=== PATIENT | female | born 1925 | race African-American/Black ===

== ENCOUNTER 2016-09-25 21:49 | Emergency (ER) | payer MEDICARE, MEDICAID ==
[2016-09-25 22:31] LABS: ABSOLUTE EOSINOPHILS # (AUTO) 0.1 10^3/uL (0.0-0.6); ABSOLUTE LYMPHOCYTES (AUTO) 0.8 10^3/uL (0.5-4.7); ABSOLUTE MONOCYTES (AUTO) 0.6 10^3/uL (0.1-1.4); ABSOLUTE NEUT (AUTO) 4.5 10^3/uL (1.7-8.2); BASOPHILS % (AUTO) 0.3 % (0-2); EOSINOPHILS % (AUTO) 1.3 % (0-6); HEMATOCRIT 33.1 % (36.0-47.0); HEMOGLOBIN 10.6 g/dL (12.0-15.5); HGB HCT DIFFERENCE -1.3; LYMPHOCYTES % (AUTO) 12.8 % (13-45); MEAN CORPUSCULAR HEMOGLOBIN 23.6 pg (27.0-33.4); MEAN CORPUSCULAR HGB CONC 32.1 g/dL (32.0-36.0); MEAN CORPUSCULAR VOLUME 74 fl (80-97); MONOCYTES % (AUTO) 9.5 % (3-13); RED BLOOD COUNT 4.51 10^6/uL (3.72-5.28); RED CELL DISTRIBUTION WIDTH 16.8 % (11.5-14.0); SEGMENTED NEUTROPHILS % (AUTO) 76.1 % (42-78)
[2016-09-25 22:47] LABS: ALANINE AMINOTRANSFERASE 18 U/L (9-52); ALBUMIN 3.6 g/dL (3.5-5.0); ALKALINE PHOSPHATASE 103 U/L (38-126); ANION GAP 13 (5-19); ASPARTATE AMINO TRANSFERASE 25 U/L (14-36); BILIRUBIN,TOTAL 0.8 mg/dL (0.2-1.3); BLOOD UREA NITROGEN 15 mg/dL (7-20); CALCIUM 9.4 mg/dL (8.4-10.2); CARBON DIOXIDE 29 mmol/L (22-30); CHLORIDE 96 mmol/L (98-107); CREATININE RESULT 0.97 mg/dL (0.52-1.25); GLUCOSE 102 mg/dL (75-110); LIPASE 29.4 U/L (23-300); SODIUM 137.8 mmol/L (137-145); TOTAL PROTEIN 6.6 g/dL (6.3-8.2)
[2016-09-25] MEDS ORDERED: NORMAL SALINE 1000 ML 1,000 ML IV PRN ×2 (22:54→23:34)
--- NOTE | 2016-09-25 22:59 | ER Document Report ---
ED GI/ - General Chief Complaint: Abdominal Pain Stated Complaint: ABDOMINAL PAIN Time seen by provider: 22:55 Mode of Arrival: Stretcher Information source: Patient, Relative - [facility] TRAVEL OUTSIDE OF THE [place] IN LAST 30 DAYS: No - HPI Patient complains to provider of: Other - decreased PO intake, generalized weakness Onset: Yesterday Quality of pain: No pain Exacerbated by: Denies Relieved by: Denies Similar symptoms previously: No Recently seen / treated by doctor: No Notes: 09/25/16 22:56 Patient is an 89-year-old female brought to the emergency room by EMS and granddaughter for complaints of decreased by mouth intake with generalized weakness over the past few days, patient denies any abdominal pain, no chest pain, no nausea, vomiting or diarrhea, no urinary symptoms, last bowel movement was yesterday and normal, no sick contacts, no recent travel, patient does report that she feels too weak to walk, however states she just simply doesn't have an appetite and has never been one to be much - Related Data Allergies/Adverse Reactions: No Known Allergies Allergy (Verified 09/25/16 22:04) Past Medical History - General Information source: Patient, Relative - Social History Smoking Status: Never Smoker Family History: Reviewed & Not Pertinent - Past Medical History Cardiac Medical History: Reports: Hx Hypercholesterolemia, Hx Hypertension Denies: Hx Coronary Artery Disease, Hx Heart Attack Pulmonary Medical History: Denies: Hx Asthma, Hx Bronchitis, Hx COPD, Hx Pneumonia Neurological Medical History: Denies: Hx Cerebrovascular Accident, Hx Seizures GI Medical History: Reports: Hx Gastroesophageal Reflux Disease Musculoskeltal Medical History: Reports Hx Arthritis - OA Psychiatric Medical History: Reports: Hx Depression Past Surgical History: Reports: Hx Bowel Surgery - Colon resection for colon cancer, Hx Kidney (Renal Surgery) - Left nephrectomy for cancer - Immunizations Hx Diphtheria, Pertussis, Tetanus Vaccination: Yes Review of Systems - Review of Systems Constitutional: Weakness EENT: No symptoms reported Cardiovascular: No symptoms reported Respiratory: No symptoms reported Gastrointestinal: See HPI Genitourinary: No symptoms reported Female Genitourinary: No symptoms reported Musculoskeletal: No symptoms reported Skin: No symptoms reported Hematologic/Lymphatic: No symptoms reported Neurological/Psychological: No symptoms reported -: Yes All other systems reviewed and negative Physical Exam - Vital signs Vitals: Temp Pulse Resp BP Pulse Ox 99.7 F 77 16 128/70 H 96 09/25/16 21:59 09/25/16 21:59 09/25/16 21:59 09/25/16 21:59 09/25/16 21:59 Interpretation: Normal - General General appearance: Appears well, Alert In distress: None - HEENT Head: Normocephalic, Atraumatic Eyes: Normal Conjunctiva: Normal Extraocular movements intact: Yes Eyelashes: Normal Pupils: PERRL Mucous membranes: Normal Pharynx: Normal Neck: Normal - Respiratory Respiratory status: No respiratory distress Chest status: Nontender Breath sounds: Normal Chest palpation: Normal - Cardiovascular Rhythm: Regular Heart sounds: Normal auscultation Murmur: No - Abdominal Inspection: Other - Cachectic Distension: No distension Bowel sounds: Normal Tenderness: Nontender Organomegaly: No organomegaly - Back Back: Normal, Nontender - Extremities General upper extremity: Normal inspection, Nontender, Normal color, Normal ROM , Normal temperature General lower extremity: Normal inspection, Nontender, Normal color, Normal ROM , Normal temperature, Normal weight bearing. No: Paul's sign - Neurological Neuro grossly intact: Yes Cognition: Normal Orientation: AAOx4 [place] Coma Scale Eye Opening: Spontaneous [place] Coma Scale Verbal: Oriented [place] Coma Scale Motor: Obeys Commands [place] Coma Scale Total: 15 Speech: Normal Motor strength normal: LUE, RUE, LLE, RLE Sensory: Normal - Psychological Associated symptoms: Normal affect, Normal mood - Skin Skin Temperature: Warm Skin Moisture: Dry Skin Color: Normal Course - Re-evaluation Re-evalutation: 09/26/16 02:51 Patient resting comfortably, continues to deny any complaints, workup in the emergency room unremarkable, she will be discharged with instructions for follow -up, advised to return if symptoms worsen, patient and family members at bedside acknowledge understanding and agreement with this plan - Vital Signs Vital signs: Temp Pulse Resp BP Pulse Ox 99.7 F 77 16 128/70 H 96 09/25/16 21:59 09/25/16 21:59 09/25/16 21:59 09/25/16 21:59 09/25/16 21:59 - Laboratory Result Diagrams: 09/25/16 22:20 09/25/16 22:20 Laboratory results interpreted by me: 09/25/16 09/25/16 09/26/16 22:20 22:20 02:28 Hgb 10.6 L Hct 33.1 L MCV 74 L MCH 23.6 L RDW 16.8 H Lymphocytes % 12.8 L Chloride 96 L Est GFR (Non-Af Amer) 54 L Urine Urobilinogen 4.0 H Discharge - Discharge Clinical Impression: Decreased appetite, Generalized weakness Condition: Stable Disposition: HOME, SELF-CARE Instructions: Weakness ([facility]) Additional Instructions: Eat several healthy meals throughout the day, drink plenty of fluids. Follow up with your primary care provider in one to 2 days. Return to the emergency room immediately if symptoms worsen or any additional concerns.
[2016-09-26 02:49] LABS: APPEARANCE,URINE CLEAR; BILIRUBIN,URINE NEGATIVE (NEGATIVE); GLUCOSE, URINE NEGATIVE (NEGATIVE); KETONES,URINE NEGATIVE (NEGATIVE); LEUKOCYTE ESTERASE,URINE NEGATIVE (NEGATIVE); NITRITE,URINE NEGATIVE (NEGATIVE); PROTEIN,URINE NEGATIVE (NEGATIVE)
[2016-09-26 03:08] VITALS: BP 126/66
== END 2016-09-26 03:06 | disposition home or self-care (01) ==
LOC: ER 21:49
DX: R63.0 Anorexia (principal); R53.1 Weakness; I10 Essential (primary) hypertension; Z85.038 Personal history of other malignant neoplasm of large intestine; Z85.528 Personal history of other malignant neoplasm of kidney; Z90.5 Acquired absence of kidney; Z90.49 Acquired absence of other specified parts of digestive tract
CPT/HCPCS: 99284; 96360; 51701; 36415; 87086; 83690; 85025; 80053; 81001; J7030

== ENCOUNTER 2016-10-05 14:32 | Inpatient (IN) | payer MEDICARE, MEDICAID ==
[2016-10-05] MEDS ORDERED: NORMAL SALINE 1000 ML 500 ML IV ONE (15:13)
--- NOTE | 2016-10-05 15:34 | ER Document Report ---
ED General - General Stated Complaint: WEAKNESS Mode of Arrival: Medic Information source: Patient, Relative Notes: This is an 89-year-old -[place] female with multiple medical problems to arise via EMS. Family states that patient has not been eating or drinking for several weeks. She was seen for similar complaints a few weeks ago. Family is also concerned because patient is having episodes which they described as slurred speech and facial drooping on the left side which last a few minutes and then resolves. Apparently patient had a regular scheduled appointment with her primary care physician this morning but after arriving home , she had an episode where she slumped over and was not as responsive for a few minutes. Family is concerned that she is dehydrated as she is not taking in food or fluids by mouth very well. Of note she had a fracture dislocation of her right ankle on August 07 which required operative repair. She has not had any recent fevers. She is not vomiting. She has had no diarrhea. The patient tells me that she feels fine and she has no complaints of pain other than chronic pain in her legs at this time. She denies chest pain or shortness of breath. She also denies headache. TRAVEL OUTSIDE OF THE [place] IN LAST 30 DAYS: No - Related Data Allergies/Adverse Reactions: No Known Allergies Allergy (Verified 09/25/16 22:04) Past Medical History - General Information source: Patient, Relative - Social History Smoking Status: Unknown if Ever Smoked Family History: Reviewed & Not Pertinent - Past Medical History Cardiac Medical History: Reports: Hx Hypercholesterolemia, Hx Hypertension Denies: Hx Coronary Artery Disease, Hx Heart Attack Pulmonary Medical History: Denies: Hx Asthma, Hx Bronchitis, Hx COPD, Hx Pneumonia Neurological Medical History: Denies: Hx Cerebrovascular Accident, Hx Seizures GI Medical History: Reports: Hx Gastroesophageal Reflux Disease Musculoskeltal Medical History: Reports Hx Arthritis - OA Psychiatric Medical History: Reports: Hx Depression Past Surgical History: Reports: Hx Bowel Surgery - Colon resection for colon cancer, Hx Kidney (Renal Surgery) - Left nephrectomy for cancer - Immunizations Hx Diphtheria, Pertussis, Tetanus Vaccination: Yes Review of Systems - Review of Systems Notes: REVIEW OF SYSTEMS: CONSTITUTIONAL : Denies fever, chills, or sweats. Denies recent illness. decreased PO as per HPI EENT: Denies eye, ear, throat, or mouth pain or symptoms. Denies nasal or sinus congestion. CARDIOVASCULAR: Denies chest pain. RESPIRATORY: Denies cough, cold, or chest congestion. Denies shortness of breath, difficulty breathing, or wheezing. GASTROINTESTINAL: Denies abdominal pain. Denies nausea, vomiting, or diarrhea. Denies constipation. GENITOURINARY: Denies difficulty urinating, painful urination, burning, frequency, or blood in urine. MUSCULOSKELETAL: Denies neck or back pain. Ongoing RLE ankle pain from recent surgery SKIN: Denies rash or skin lesions. HEMATOLOGIC : Denies easy bruising or bleeding. LYMPHATIC: Denies swollen, enlarged glands. NEUROLOGICAL: as per HPI Denies headache. PSYCHIATRIC: Denies anxiety or stress or depression. ALL OTHER SYSTEMS REVIEWED AND NEGATIVE. Physical Exam - Vital signs Vitals: Temp Pulse Resp BP Pulse Ox 97.6 F 79 17 124/59 L 100 10/05/16 14:40 10/05/16 14:40 10/05/16 14:40 10/05/16 14:40 10/05/16 14:40 - Notes Notes: PHYSICAL EXAMINATION: GENERAL: Elderly female who appears somewhat sleepy. She does awaken to voice and answers questions appropriately. She is nontoxic in appearance. She is in no distress. HEAD: Atraumatic, normocephalic. EYES: Pupils equal round and reactive to light, extraocular movements intact, sclera anicteric, conjunctiva are normal. ENT: nares patent, oropharynx clear without exudates. Mucous membranes are somewhat dry. NECK: Normal range of motion, supple without lymphadenopathy LUNGS: Breath sounds clear to auscultation bilaterally and equal. No wheezes rales or rhonchi. HEART: Regular rate and rhythm without murmurs ABDOMEN: Soft, nontender, normoactive bowel sounds. No guarding, no rebound. No masses appreciated. EXTREMITIES: Normal range of motion, no pitting or edema. Right ankle with vickey and well-healed surgical scars. The right ankle is very warm to touch and erythematous. Cap refill intact and sensation intact. NEUROLOGICAL: Cranial nerves grossly intact. Normal speech. Motor strength is intact and symmetric in the bilateral upper and lower extremities. Normal sensory exam. PSYCH: Normal mood, normal affect. SKIN: Warm, Dry, normal turgor, no rashes or lesions noted. Course - Re-evaluation Re-evalutation: 10/05/16 15:58 Patient's history and exam is consistent with generalized deconditioning and poor by mouth intake. Also the family describes intermittent episodes which are concerning for possible TIA. At this point the patient is neurologically intact and has no specific complaints. We'll treat with IV fluids and check basic labs and CT of the head. Family is in agreement with this plan and questions are answered. 10/05/16 18:08 CT of the head was negative. Labs were reviewed with the family along with my concern that patient is having likely TIAs. Also I am concerned with the leukocytosis and elevated CRP that patient may have an infection at her surgical site in her left ankle. She is given IV vancomycin here in the ER and she will be admitted to the hospitalist for further workup. Patient and family are very comfortable with this plan. All questions were answered. - Vital Signs Vital signs: Temp Pulse Resp BP Pulse Ox 97.6 F 79 14 138/67 H 100 10/05/16 14:40 10/05/16 14:40 10/05/16 16:01 10/05/16 16:01 10/05/16 16:17 - Laboratory Result Diagrams: 10/05/16 15:36 10/05/16 15:36 Laboratory results interpreted by me: 10/05/16 10/05/16 10/05/16 15:36 15:36 15:36 WBC 13.2 H Hgb 9.0 L Hct 27.5 L MCV 72 L MCH 23.6 L RDW 16.5 H Plt Count 695 H Seg Neutrophils % 84.3 H Lymphocytes % 5.3 L Absolute Neutrophils 11.1 H ESR 117 H APTT 48.1 H Chloride 97 L BUN 24 H Est GFR (Non-Af Amer) 49 L Alkaline Phosphatase 228 H C-Reactive Protein 539.0 H Urine Urobilinogen Urine Ascorbic Acid 10/05/16 16:12 WBC Hgb Hct MCV MCH RDW Plt Count Seg Neutrophils % Lymphocytes % Absolute Neutrophils ESR APTT Chloride BUN Est GFR (Non-Af Amer) Alkaline Phosphatase C-Reactive Protein Urine Urobilinogen 4.0 H Urine Ascorbic Acid 40 H Discharge - Discharge Clinical Impression: Generalized weakness TIA (transient ischemic attack) Qualifiers: Transient cerebral ischemia type: unspecified Qualified Code(s): G45.9 - Transient cerebral ischemic attack, unspecified Anemia Qualifiers: Anemia type: unspecified type Qualified Code(s): D64.9 - Anemia, unspecified Post op infection Qualifiers: Encounter type: initial encounter Qualified Code(s): T81.4XXA - Infection following a procedure, initial encounter Condition: Stable Disposition: ADMITTED INPATIENT Admitting Provider: [facility] Admitted: [facility]
[2016-10-05 15:47] LABS: ABSOLUTE BASOPHILS # (AUTO) 0.1 10^3/uL (0.0-0.2); ABSOLUTE LYMPHOCYTES (AUTO) 0.7 10^3/uL (0.5-4.7); ABSOLUTE MONOCYTES (AUTO) 1.3 10^3/uL (0.1-1.4); ABSOLUTE NEUT (AUTO) 11.1 10^3/uL (1.7-8.2); BASOPHILS % (AUTO) 0.5 % (0-2); EOSINOPHILS % (AUTO) 0.2 % (0-6); HEMATOCRIT 27.5 % (36.0-47.0); HGB HCT DIFFERENCE -0.5; LYMPHOCYTES % (AUTO) 5.3 % (13-45); MEAN CORPUSCULAR HEMOGLOBIN 23.6 pg (27.0-33.4); MEAN CORPUSCULAR HGB CONC 32.9 g/dL (32.0-36.0); MEAN CORPUSCULAR VOLUME 72 fl (80-97); MONOCYTES % (AUTO) 9.7 % (3-13); RED BLOOD COUNT 3.83 10^6/uL (3.72-5.28); RED CELL DISTRIBUTION WIDTH 16.5 % (11.5-14.0); SEGMENTED NEUTROPHILS % (AUTO) 84.3 % (42-78); WHITE BLOOD COUNT 13.2 10^3/uL (4.0-10.5)
[2016-10-05 15:54] LABS: PROTHROMBIN TIME 15.2 SEC (11.4-15.4)
[2016-10-05 15:55] LABS: PARTIAL THROMBOPLASTIN TIME 48.1 SEC (23.5-35.8)
[2016-10-05 16:17] LABS: ALANINE AMINOTRANSFERASE 28 U/L (9-52); ALBUMIN 3.6 g/dL (3.5-5.0); ALKALINE PHOSPHATASE 228 U/L (38-126); ANION GAP 14 (5-19); ASPARTATE AMINO TRANSFERASE 35 U/L (14-36); BILIRUBIN,TOTAL 1.1 mg/dL (0.2-1.3); BLOOD UREA NITROGEN 24 mg/dL (7-20); CALCIUM 9.4 mg/dL (8.4-10.2); CARBON DIOXIDE 27 mmol/L (22-30); CHLORIDE 97 mmol/L (98-107); CREATINE KINASE 67 U/L (30-135); CREATININE RESULT 1.05 mg/dL (0.52-1.25); GLUCOSE 85 mg/dL (75-110); POTASSIUM 4.6 mmol/L (3.6-5.0); SODIUM 138.1 mmol/L (137-145); TOTAL PROTEIN 7.6 g/dL (6.3-8.2)
[2016-10-05 16:22] LABS: CREATINE KINASE MB 0.66 ng/mL (<4.55)
[2016-10-05 16:24] LABS: ERYTHROCYTE SEDIMENTATION RATE 117 mm/hr (0-30)
[2016-10-05 16:25] LABS: TROPONIN I < 0.012 ng/mL
[2016-10-05 16:36] LABS: AMORPHOUS SEDIMENT,URINE TRACE /HPF; APPEARANCE,URINE CLEAR; BILIRUBIN,URINE NEGATIVE (NEGATIVE); GLUCOSE, URINE NEGATIVE (NEGATIVE); KETONES,URINE NEGATIVE (NEGATIVE); LEUKOCYTE ESTERASE,URINE NEGATIVE (NEGATIVE); NITRITE,URINE NEGATIVE (NEGATIVE); PROTEIN,URINE NEGATIVE (NEGATIVE); URINE SPECIFIC GRAVITY 1.017
[2016-10-05] MEDS ORDERED: VANCOMYCIN HCL INJ 1000 MG VIAL IV ONE (17:26)
--- NOTE | 2016-10-05 18:08 | EKG REPORT ---
SEVERITY:- ABNORMAL ECG - SINUS RHYTHM PROBABLE LVH WITH SECONDARY REPOL ABNRM CONSIDER ANTERIOR INFARCT : Confirmed by: Teddy Ortega MD 05-Oct-2016 18:07:50
[2016-10-05] MEDS ORDERED: ASPIRIN 325 MG TABLET PO ONE (20:18)
[2016-10-06] MEDS ORDERED: MAGNESIUM HYDROXIDE SUSP 30 ML UDCUP PO PRN (01:03)
[2016-10-06] MEDS ORDERED: MAG HYDROX/AL HYDROX/SIMETH SUSP 30 ML UDCUP PO PRN (01:03)
[2016-10-06] MEDS ORDERED: IPRATROPIUM/ALBUTEROL 0.5-2.5 MG/3 ML AMPUL NEB PRN (01:03)
[2016-10-06] MEDS ORDERED: TRAMADOL HCL 50 MG TABLET PO PRN (01:06)
[2016-10-06] MEDS ORDERED: FLUTICASONE NASAL SPRAY 50 MCG/SPRY 120 SPRAY/16 GM NAREB PRN (01:06)
[2016-10-06] MEDS ORDERED: LACTULOSE SYRUP 20 GM/30 ML UDCUP PO ONE (01:07)
[2016-10-06] MEDS ORDERED: CEFTRIAXONE SODIUM 1,500 MG in DEXTROSE 5%-WATER 100 ML IV SCH ×2 (01:15→22:00)
[2016-10-06] MEDS ORDERED: CEFTRIAXONE INJ 1000 MG VIAL IV ONE (01:30)
[2016-10-06] MEDS ORDERED: CEFTRIAXONE SODIUM 1,500 MG in DEXTROSE 5%-WATER 100 ML IV ONE (01:30)
[2016-10-06] MEDS: NORMAL SALINE 1000 ML 1,000 ML IV SCH ×3 (02:28→18:54)
[2016-10-06] MEDS ORDERED: INFLUENZA ADLT QUAD (36MOS+) 2016-17 VAC 0.5 ML SYR IM PRN (04:18)
[2016-10-06] MEDS: HEPARIN SOD (PORCINE) 5,000 UNIT/ML 1 ML SYRINGE SUBCUT SCH ×3 (05:37→22:52)
[2016-10-06 06:32] LABS: ABSOLUTE BASOPHILS # (AUTO) 0.1 10^3/uL (0.0-0.2); ABSOLUTE EOSINOPHILS # (AUTO) 0.1 10^3/uL (0.0-0.6); ABSOLUTE LYMPHOCYTES (AUTO) 0.7 10^3/uL (0.5-4.7); ABSOLUTE MONOCYTES (AUTO) 1.5 10^3/uL (0.1-1.4); ABSOLUTE NEUT (AUTO) 7.8 10^3/uL (1.7-8.2); BASOPHILS % (AUTO) 0.6 % (0-2); EOSINOPHILS % (AUTO) 0.8 % (0-6); HEMATOCRIT 21.6 % (36.0-47.0); HGB HCT DIFFERENCE -0.6; LYMPHOCYTES % (AUTO) 6.8 % (13-45); MEAN CORPUSCULAR HGB CONC 32.3 g/dL (32.0-36.0); MEAN CORPUSCULAR VOLUME 71 fl (80-97); MONOCYTES % (AUTO) 14.7 % (3-13); RED BLOOD COUNT 3.02 10^6/uL (3.72-5.28); RED CELL DISTRIBUTION WIDTH 16.7 % (11.5-14.0); SEGMENTED NEUTROPHILS % (AUTO) 77.1 % (42-78); WHITE BLOOD COUNT 10.2 10^3/uL (4.0-10.5)
[2016-10-06 06:37] LABS: ANION GAP 11 (5-19); BLOOD UREA NITROGEN 18 mg/dL (7-20); CALCIUM 8.2 mg/dL (8.4-10.2); CARBON DIOXIDE 23 mmol/L (22-30); CHLORIDE 106 mmol/L (98-107); CREATININE RESULT 0.79 mg/dL (0.52-1.25); GLUCOSE 77 mg/dL (75-110); POTASSIUM 4.1 mmol/L (3.6-5.0); SODIUM 140.3 mmol/L (137-145)
--- NOTE | 2016-10-06 06:47 | PDOC CONSULTATION ---
Consultation Consult Date: 10/06/16 Consult reason:: Right ankle surgery History of Present Illness Admission Date/PCP: 10/06/16 01:03 JOSEPHINE LIGN PA-C Patient complains of: Patient is an 89-year-old black female status post open reduction internal fixation of a right ankle fracture in early July. She is now readmitted for medical reasons. She denies any pain in the right ankle. History of Present Illness: ERIC BRANHAM is a 89 year old female Past Medical History Cardiac Medical History: Reports: Hyperlipidema, Hypertension Denies: Coronary Artery Disease, Myocardial Infarction Pulmonary Medical History: Denies: Asthma, Bronchitis, Chronic Obstructive Pulmonary Disease (COPD), Pneumonia Neurological Medical History: Denies: Seizures GI Medical History: Reports: Gastroesophageal Reflux Disease Musculoskeltal Medical History: Reports: Arthritis - OA Psychiatric Medical History: Reports: Depression Hematology: Denies: Anemia Past Surgical History Past Surgical History: Reports: Orthopedic Surgery - Patient status post an open reduction internal fixation of right bimalleola Social History Information Source: Patient, [facility] Records Smoking Status: Never Smoker Frequency of Alcohol Use: None Hx Recreational Drug Use: No Hx Prescription Drug Abuse: No Family History Family History: Reviewed & Not Pertinent Parental Family History Reviewed: No Children Family History Reviewed: No Sibling(s) Family History Reviewed.: No Medication/Allergy Home Medications: Alendronate Sodium [Fosamax] 70 mg PO WE@1000 10/05/16 Aspirin [Adult Low Dose Aspirin EC] 81 mg PO DAILY 10/05/16 Calcium Carbonate [Calcium] 600 mg PO DAILY 10/05/16 Fluticasone Propionate [Flonase Nasal [place] 50 Mcg/[place] 16 gm] 2 sprays NAREB DAILYP PRN 10/05/16 Hydrochlorothiazide [Hydrodiuril 25 mg Tablet] 25 mg PO DAILY 10/05/16 Meloxicam [Mobic 7.5 Mg Tablet] 7.5 mg PO DAILY 10/05/16 Metoprolol Succinate 50 mg PO DAILY 10/05/16 Tramadol HCl [Ultram 50 mg Tablet] 50 mg PO TIDP PRN 10/05/16 Allergies/Adverse Reactions: No Known Allergies Allergy (Verified 09/25/16 22:04) Review of Systems All systems: as per H Physical Exam Vital Signs: Temp Pulse Resp BP Pulse Ox 36.7 C 58 L 18 138/59 H 95 10/06/16 05:34 10/06/16 05:34 10/06/16 05:34 10/06/16 05:34 10/06/16 05:34 Intake & Output 10/04/16 10/05/16 10/06/16 06:59 06:59 06:59 Intake Total 590 Output Total 0 Balance 590 Weight 46.3 kg Physical Exam: Patient's a thin if not cachectic-appearing elderly black female lying in bed in no acute distress. She is accompanied by family member in the adjoining recliner. Family number does most of the talking. Family members very concerned about the right ankle with swelling General appearance: PRESENT: no acute distress Head exam: PRESENT: normocephalic Eye exam: PRESENT: EOMI Respiratory exam: PRESENT: unlabored Cardiovascular exam: PRESENT: RRR Pulses: PRESENT: +1 pedal pulses bilateral Vascular exam: PRESENT: normal capillary refill GI/Abdominal exam: PRESENT: soft Rectal exam: PRESENT: deferred Musculoskeletal exam: PRESENT: other - Medial and lateral incisions are well- healed. There is no erythema. There is no induration. There is a small amount of swelling. There is no tenderness to palpation. Passive range of motion is without significant discomfort. This brisk capillary refill distally. This intact great toe flexion and extension. Skin exam: PRESENT: intact Results Laboratory Results: 10/06/16 05:28 10/06/16 05:28 10/06/16 10/06/16 05:28 05:28 WBC 10.2 RBC 3.02 L Hgb 7.0 L Hct 21.6 L MCV 71 L MCH 23.0 L MCHC 32.3 RDW 16.7 H Plt Count 510 H Seg Neutrophils % 77.1 Lymphocytes % 6.8 L Monocytes % 14.7 H Eosinophils % 0.8 Basophils % 0.6 Absolute Neutrophils 7.8 Absolute Lymphocytes 0.7 Absolute Monocytes 1.5 H Absolute Eosinophils 0.1 Absolute Basophils 0.1 Sodium 140.3 Potassium 4.1 Chloride 106 Carbon Dioxide 23 Anion Gap 11 BUN 18 Creatinine 0.79 Est GFR ( Amer) > 60 Est GFR (Non-Af Amer) > 60 Glucose 77 Calcium 8.2 L Impressions: Chest X-Ray 10/05/16 15:14 IMPRESSION: No acute abnormality in the chest. Head CT 10/05/16 15:14 IMPRESSION: CHRONIC CHANGES OF ATROPHY AND MICROVASCULAR ISCHEMIA. NO ACUTE PROCESS. Ankle X-Ray 10/05/16 15:29 IMPRESSION: Interval ORIF ankle fracture dislocation. No evidence of postoperative complication. Assessment & Plan - Diagnosis (1) Bimalleolar fracture of right ankle Qualifiers: Encounter type: subsequent encounter Fracture type: closed Fracture healing: with routine healing Qualified Code(s): S82.841D - Displaced bimalleolar fracture of right lower leg, subsequent encounter for closed fracture with routine healing Is this a current diagnosis for this admission?: YesPlan: 89-year-old female status post right ankle fracture with an uneventful postoperative course. I concur with the concern about leukocytosis and elevated C-reactive protein. However, at this point clinical examination 2 months status post surgery is not concerning for postoperative infection. There is no erythema. There is no induration. There is no tenderness to palpation. Skin is intact. There is no drainage. If there is ongoing concern for postoperative infection possibly the best course of action is to attempt an aspiration along the lateral fibular plate? In the interim I think it's reasonable to attempt to ambulate the patient with physical therapy - Time Time Spent: 30 to 50 Minutes Critical Time spent with patient: 15-24 minutes
--- NOTE | 2016-10-06 08:28 | PDOC H&P ---
History of Present Illness Admission Date/PCP: 10/06/16 01:03 JOSEPHINE LING PA-C Patient complains of: Right ankle pain and fatigue History of Present Illness: Patient is an 89-year-old female with a past medical history of hypertension, COPD, osteoporosis and recent right ankle fracture, who'd been her usual state of health until approximately 3 weeks ago having persistent pain to her right ankle following fixation, unable to bear weight subjective fever and chills, poor appetite and fatigue. In the emergency room she has a unremarkable physical exam with exception to the right ankle mild leukocytosis of 13, platelets of 700,000 and an ESR 117. She receives IV fluids and vancomycin referred to the hospitalist for admission. Past Medical History Cardiac Medical History: Reports: Hyperlipidema, Hypertension Denies: Coronary Artery Disease, Myocardial Infarction Pulmonary Medical History: Denies: Asthma, Bronchitis, Chronic Obstructive Pulmonary Disease (COPD), Pneumonia Neurological Medical History: Denies: Seizures GI Medical History: Reports: Gastroesophageal Reflux Disease Musculoskeltal Medical History: Reports: Arthritis - OA Psychiatric Medical History: Reports: Depression Hematology: Denies: Anemia Past Surgical History Past Surgical History: Reports: Orthopedic Surgery - Patient status post an open reduction internal fixation of right bimalleola Social History Information Source: Patient, Relative Lives with: Family Smoking Status: Never Smoker Frequency of Alcohol Use: None Hx Recreational Drug Use: No Hx Prescription Drug Abuse: No - Advance Directive Resuscitation Status: Full Code Family History Family History: DM Parental Family History Reviewed: Yes Children Family History Reviewed: Yes Sibling(s) Family History Reviewed.: Yes Medication/Allergy Home Medications: Alendronate Sodium [Fosamax] 70 mg PO WE@1000 10/05/16 Aspirin [Adult Low Dose Aspirin EC] 81 mg PO DAILY 10/05/16 Calcium Carbonate [Calcium] 600 mg PO DAILY 10/05/16 Fluticasone Propionate [Flonase Nasal [place] 50 Mcg/[place] 16 gm] 2 sprays NAREB DAILYP PRN 10/05/16 Hydrochlorothiazide [Hydrodiuril 25 mg Tablet] 25 mg PO DAILY 10/05/16 Meloxicam [Mobic 7.5 Mg Tablet] 7.5 mg PO DAILY 10/05/16 Metoprolol Succinate 50 mg PO DAILY 10/05/16 Tramadol HCl [Ultram 50 mg Tablet] 50 mg PO TIDP PRN 10/05/16 Allergies/Adverse Reactions: No Known Allergies Allergy (Verified 09/25/16 22:04) Review of Systems ROS unobtainable: Due to mental status Physical Exam Vital Signs: Temp Pulse Resp BP Pulse Ox 98.1 F 58 L 18 138/59 H 95 10/06/16 05:34 10/06/16 05:34 10/06/16 05:34 10/06/16 05:34 10/06/16 05:34 Intake & Output 10/04/16 10/05/16 10/06/16 11:59 11:59 11:59 Intake Total 590 Output Total 0 Balance 590 Weight 46.3 kg General appearance: PRESENT: cooperative, mild distress Head exam: PRESENT: atraumatic, normocephalic Eye exam: PRESENT: conjunctiva pink, EOMI, PERRLA. ABSENT: scleral icterus Ear exam: PRESENT: normal external ear exam Mouth exam: PRESENT: dry mucosa, tongue midline Neck exam: ABSENT: carotid bruit, JVD, lymphadenopathy, meningismus, tenderness , thyromegaly Respiratory exam: PRESENT: clear to auscultation arely. ABSENT: rales, rhonchi, wheezes Cardiovascular exam: PRESENT: RRR. ABSENT: diastolic murmur, rubs, systolic murmur Pulses: PRESENT: normal dorsalis pedis pul Vascular exam: PRESENT: normal capillary refill, other - No change in vision, headache no jaw pain when chewing no prominent temporal vasculature Rectal exam: PRESENT: deferred Extremities exam: PRESENT: joint swelling, tenderness, +1 edema - Right ankle tenderness. ABSENT: clubbing, full ROM Musculoskeletal exam: PRESENT: tenderness - Right ankle. ABSENT: full ROM Neurological exam: PRESENT: alert, awake, oriented to person, oriented to place , oriented to time, oriented to situation, CN II-XII grossly intact. ABSENT: motor sensory deficit Psychiatric exam: PRESENT: appropriate affect, normal mood. ABSENT: homicidal ideation, suicidal ideation Skin exam: PRESENT: dry, intact, warm. ABSENT: cyanosis, rash Results Laboratory Results: 10/06/16 05:28 10/06/16 05:28 10/06/16 10/06/16 05:28 05:28 WBC 10.2 RBC 3.02 L Hgb 7.0 L Hct 21.6 L MCV 71 L MCH 23.0 L MCHC 32.3 RDW 16.7 H Plt Count 510 H Seg Neutrophils % 77.1 Lymphocytes % 6.8 L Monocytes % 14.7 H Eosinophils % 0.8 Basophils % 0.6 Absolute Neutrophils 7.8 Absolute Lymphocytes 0.7 Absolute Monocytes 1.5 H Absolute Eosinophils 0.1 Absolute Basophils 0.1 Sodium 140.3 Potassium 4.1 Chloride 106 Carbon Dioxide 23 Anion Gap 11 BUN 18 Creatinine 0.79 Est GFR ( Amer) > 60 Est GFR (Non-Af Amer) > 60 Glucose 77 Calcium 8.2 L Impressions: Chest X-Ray 10/05/16 15:14 IMPRESSION: No acute abnormality in the chest. Head CT 10/05/16 15:14 IMPRESSION: CHRONIC CHANGES OF ATROPHY AND MICROVASCULAR ISCHEMIA. NO ACUTE PROCESS. Ankle X-Ray 10/05/16 15:29 IMPRESSION: Interval ORIF ankle fracture dislocation. No evidence of postoperative complication. Assessment & Plan - Diagnosis (1) Septic arthritis of right ankle Is this a current diagnosis for this admission?: YesPlan: Empiric clindamycin symptomatically management and orthopedic consultation differential includes gout I'll obtain a uric acid level consider a NSAIDs and steroid challenge if antibiotics show no improvement (2) Generalized weakness Is this a current diagnosis for this admission?: YesPlan: Correction of the underlying inflammatory state and physical therapy - Time Time Spent: 50 to 70 Minutes
[2016-10-06] MEDS: KETOROLAC TROMETHAMINE INJ/PF 30 MG/1 ML SDV IV PRN ×3 (08:42→22:52)
[2016-10-06] MEDS ORDERED: ASPIRIN 81 MG TABLET, ENT COATED PO SCH (10:00)
[2016-10-06] MEDS: METOPROLOL SUCCINATE 50 MG TAB.SR.24H PO SCH (10:54)
[2016-10-06] MEDS: CLINDAMYCIN 900 MG/D5W RTU 50 ML IV SCH ×2 (10:57→18:50)
[2016-10-06] MEDS: DOCUSATE SODIUM 100 MG CAPSULE PO SCH ×2 (11:15→18:56)
[2016-10-06] MEDS: ACETAMINOPHEN 325 MG TABLET PO PRN (11:21)
--- NOTE | 2016-10-06 16:37 | PDOC PROGRESS REPORT ---
Subjective Progress Note for:: 10/06/16 Subjective:: The patient was seen earlier today on rounds. Apparently the patient has had a left-sided facial droop for over a week. The patient still has significant tenderness in her right foot. The family describes her having syncope episodes and then waking up and resuming conversation where she left off. The patient denies any nausea, vomiting, diarrhea, shortness of breath, dizziness, chest pain, heart palpitations, fevers, or chills. The patient has remained afebrile. Blood pressures have been in a good range. When prompted the patient voices no other concerns at this time. I asked the patient directly about her wishes and the patient stated that she wanted a natural . According to the family they did not believe that this was acceptable given the patient's current mental state and would like the patient remained a full code. The patient was passive about this afterwards. Review of systems: The rest of the review of systems is negative. Physical Exam Vital Signs: Temp Pulse Resp BP Pulse Ox 98.1 F 70 16 108/48 L 94 10/06/16 15:37 10/06/16 15:41 10/06/16 15:41 10/06/16 15:37 10/06/16 15:41 Intake & Output 10/04/16 10/05/16 10/06/16 23:59 23:59 23:59 Intake Total 812 Output Total 0 Balance 812 Weight 46.3 kg General appearance: PRESENT: no acute distress, cooperative, well-developed, well-nourished Head exam: PRESENT: atraumatic, normocephalic Eye exam: PRESENT: conjunctiva pink, EOMI, PERRLA - Sluggish, other - Facial droop. ABSENT: scleral icterus Ear exam: PRESENT: normal external ear exam Mouth exam: PRESENT: moist, tongue midline Neck exam: ABSENT: carotid bruit, JVD, lymphadenopathy, thyromegaly Respiratory exam: PRESENT: clear to auscultation arely. ABSENT: rales, rhonchi, wheezes Cardiovascular exam: PRESENT: RRR. ABSENT: diastolic murmur, rubs, systolic murmur Pulses: PRESENT: normal dorsalis pedis pul Vascular exam: PRESENT: normal capillary refill GI/Abdominal exam: PRESENT: normal bowel sounds, soft. ABSENT: distended, guarding, mass, organolmegaly, rebound, tenderness Rectal exam: PRESENT: deferred Extremities exam: PRESENT: full ROM, joint swelling - Right ankle, slight warmth noted. ABSENT: calf tenderness, clubbing Neurological exam: PRESENT: alert, awake, oriented to person, oriented to place , oriented to time, oriented to situation. ABSENT: motor sensory deficit Psychiatric exam: PRESENT: appropriate affect, normal mood. ABSENT: homicidal ideation, suicidal ideation Skin exam: PRESENT: dry, intact, warm. ABSENT: cyanosis, rash Results Laboratory Results: 10/06/16 05:28 10/06/16 05:28 10/06/16 10/06/16 05:28 05:28 WBC 10.2 RBC 3.02 L Hgb 7.0 L Hct 21.6 L MCV 71 L MCH 23.0 L MCHC 32.3 RDW 16.7 H Plt Count 510 H Seg Neutrophils % 77.1 Lymphocytes % 6.8 L Monocytes % 14.7 H Eosinophils % 0.8 Basophils % 0.6 Absolute Neutrophils 7.8 Absolute Lymphocytes 0.7 Absolute Monocytes 1.5 H Absolute Eosinophils 0.1 Absolute Basophils 0.1 Sodium 140.3 Potassium 4.1 Chloride 106 Carbon Dioxide 23 Anion Gap 11 BUN 18 Creatinine 0.79 Est GFR ( Amer) > 60 Est GFR (Non-Af Amer) > 60 Glucose 77 Calcium 8.2 L Impressions: Chest X-Ray 10/05/16 15:14 IMPRESSION: No acute abnormality in the chest. Head CT 10/05/16 15:14 IMPRESSION: CHRONIC CHANGES OF ATROPHY AND MICROVASCULAR ISCHEMIA. NO ACUTE PROCESS. Ankle X-Ray 10/05/16 15:29 IMPRESSION: Interval ORIF ankle fracture dislocation. No evidence of postoperative complication. Carotid Doppler Study 10/06/16 11:41 IMPRESSION: No flow significant stenosis at the right carotid bifurcation. 50 to 69% diameter stenosis left proximal ICA at the carotid bifurcation based on velocity criteria Assessment & Plan - Diagnosis (1) Bimalleolar fracture of right ankle Qualifiers: Encounter type: subsequent encounter Fracture type: closed Fracture healing: with routine healing Qualified Code(s): S82.841D - Displaced bimalleolar fracture of right lower leg, subsequent encounter for closed fracture with routine healing Is this a current diagnosis for this admission?: YesPlan: Status post repair. (2) SIRS (systemic inflammatory response syndrome) Is this a current diagnosis for this admission?: YesPlan: Uncertain of the exact source of this time however the patient's white count has improved. Possibly secondary to #1 but orthopedics does not feel that this is the source. Patient denies headaches. Will continue antibiotic coverage for now. 10/05/16 10/05/16 10/06/16 15:36 15:36 05:28 WBC 13.2 H 10.2 ESR 117 H C-Reactive Protein 539.0 H 10/06/16 10:00 Clindamycin 900 mg/D5w RTU [Cleocin RTU 900 mg/D5w 50 ml Premix] 50 ml IV Q8A (3) Generalized weakness Is this a current diagnosis for this admission?: Yes (4) TIA (transient ischemic attack) Qualifiers: Transient cerebral ischemia type: unspecified Qualified Code(s): G45.9 - Transient cerebral ischemic attack, unspecified Is this a current diagnosis for this admission?: YesPlan: Will obtain echo and carotid Doppler. The patient is unable to tolerate MRI given her recent surgery. (5) Hypertension Qualifiers: Hypertension type: essential hypertension Qualified Code(s): I10 - Essential (primary) hypertension Is this a current diagnosis for this admission?: YesPlan: Will continue home medications. - Time Time Spent with patient: on this visit including assessment, plan, physical examination, family meeting, and specialty collaboration, and patient education is 35 minutes. Time Spent with patient: 35 or more minutes Medications reviewed and adjusted accordingly: Yes Disposition: The patient is a full code. Pending patient's symptomatology and diagnostic findings will reevaluate in the a.m.
--- NOTE | 2016-10-06 16:58 | Physician Advisory Note ---
Physician Advisor ProgressNote .: [facility], I have reviewed the medical record for this patient. Physician Advisor Statement: Possible documentation opportunities if attending agrees: 1. Principal Dx - H&P states septic arthritis, prog note states ankle fx. Please clarify what is principal dx requiring admission. 2. TIAs (or 'episodes of cerebral ischemia/Acute cerebrovascular insufficiency' ?), producing new Lt facial droop & dysarthria ..." - ?Does she need neuro checks? 3. "Precipitous drop in H/H, possibly due to " (Hgb was stable @ 10.6 on 09/25/16, now is 9.0 & 7.0) - ?acute blood loss from ____? or .... 4. "generalized weakness likely due to " (chronic debility? #1? intravascular volume depletion? inflammatory/infectious process? ...) 5. "Medical Necessity" - Please give explicit documentation of clinical reasons /concerns that prevent her from being able to safely be tx'd in a less intensive setting at this time now that her WBC & BUN are better & ortho has recommended WBAT. (To combat the 'devil's advocate' approach of auditors....) Feel free to include any of the suggested points below under "Status" with which you agree. 6. R.e SIRS dx - please document criteria used to determine this dx - (+ leukocytosis but no fever, tachycardia, or tachypnea seen by this reviewer) - as well as likely cause. - If you believe pt had "sepsis, present on adm, despite neg BCs, likely due to ___", then please state that & the criteria used for that dx. 7. 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 [Sack Lifter documents wt trend declining, recommends Reg diet _ Ensure Enlive.] As always, if concerned about any unstable VS or abnormal labs, please comment on them & note what doing about them, & please document each day the potential clinical problems you are concerned could occur if pt not kept in hospital for tx at this time. 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 ED dr documented Rt foot was swollen, "very warm & erythematous" with well healed surgical scars & neuro exam WNL. ED dr gave 500ml IVF bolus, labs, CT, IV vanc, ordered hemoccult. Initial VSS. (+) WBC 13.2 (was 6.0 on 09/25/16), Hgb 9.0 (was 10.6 on 09/25/16), plts 695, BUN 24, Cr 1.05, CRP 539, ESR 117. U/A neg for infxn. Attending ordered NS @200 x 2L, IV Clindamycin, prn Tylenol, Ultram, & IV ketorolac, daily ASA, AM labs through 10/09, O2 2L, I/O, tele monitoring, OOB with assistance, uric acid in case of gout. Status: This is a very elderly pt with ankle fx requiring ORIF in Jul, with reported decreased po intake & increased weakness since, now also with episodes of slurred speech/facial droop/decreased responsiveness as well as severe underweight/malnutrition, leukocytosis (+ high CRP & ESR) that may indicate acute septic joint or acute bacterial infxn of unknown etiology, marked new drop in H/H, evidence for volume depletion (dry mucosae, BUN/Cr ratio elevated) . She appears to have shown herself to be a poor, varying historian, given report of no c/o's per ED dr, (+) persistent Rt ankle pain to attending, but "denies any pain in Rt ankle" for ortho, then c/o 5/5 pain with movement Rt ankle for PT today. ED dr & Attending documented concern for septic arthritis, with findings of (+) edema, warmth, redness, tenderness. (Attending wrote orders @1AM.) Ortho dr appears to have seen pt several hours later, appx 6-6:30 AM, after IV vanc @19:04 & 1.5gm Rocephin @02:33, at which point he documented the joint was not tender or red or concerning for infection. He found pt's ankle to have PROM "without significant discomfort". Rec'd ambulation attempts w/PT. On repeat testing this AM, Hgb is even worse, at 7.0, with improved WBC & BUN, Uric acid 8.4, hemoccult neg, BCs pending. PT this AM documents "Rt ankle pain 5/5 with movement" & "guarding with movements" on ROM, "Lt facial droop", strength 3+/5 all ext.s except Rt ankle 3- /5, needing mod-max assist of 2 persons to achieve bed mobility & transfers, standing only for 30sec at a time, & "inability to take any steps &/or fully weight bear onto Rt foot". Attending today has ordered specialty mattress, DCP consult, continued IV Clindamycin. This pt is not clinically stabilized for d/c. Even though her vital signs are stable, she has evidence for possible septic joint vs bacterial infxn of unclear etiology, which needs further tx/monitoring for sufficient response, & possible add'l evaluation. (And may have waxing/waning s/s.) Without clear eradication of joint infection, she may not be able to walk or stand again. She has a tremendous acute drop in H/H with unclear cause & no clear resolution/ stabilizing - & may end up needing transfusion. She has recurrent episode(s) of acute neurological abnormalities (facial droop for PT) today. She is unable to bear weight on Rt foot due to pain, & is high falls risk. She has already required 1MN of hospital care in ED. Tx in inpatient hospital setting for at least a 2nd MN = medically reasonable & necessary to protect pt's health, safety, & medical condition. Appropriate for Inpt status. Thanks for your help with documentation accuracy/specificity improvement! Zeina Ayala MD [facility] Physician Advisor, Fellow of Hospital Medicine
--- NOTE | 2016-10-06 19:24 | XCELERA REPORT ---
[address] [address] Transthoracic Echocardiogram Report Name: ERIC BRANHAM Age: 89 yrs Gender: Female : 1925 Patient Status: Inpatient Patient Location: [id number]\S\329\S\A Study Date: 10/06/2016 02:20 PM Height: 66 in Weight: 102 lb BSA: 1.5 m2 Procedure: A complete two-dimensional transthoracic echocardiogram was performed (2D, M-mode, spectral and color flow Doppler). The study was technically adequate with some images being suboptimal in quality. Reason For Study: TIA Ordering Physician: JAYDEN PADILLA Performed By: Tawana Mckenzie Interpretation Summary The left ventricular ejection fraction is normal. There is mild concentric left ventricular hypertrophy. The left ventricle is grossly normal size. Doppler measurements suggest pseudonormalized left ventricular relaxation, which is associated with grade II/IV or mild to moderate diastolic dysfunction Wall motion cannot be accurately commented on, but no definite regional wall motion abnormalities noted. The right ventricular systolic function is normal. The left atrium is mildly dilated. The right atrium is normal. There is a mild amount of mitral regurgitation There is no mitral valve stenosis. There is a mild amount of aortic regurgitation There is no aortic valve stenosis There is a trace to mild amount of tricuspid regurgitation There is mild pulmonary hypertension by echo Right ventricular systolic pressure is estimated to be elevated at 30- 40mmHg. Minimal pericardial effusion. MMode/2D Measurements \T\ Calculations RVDd: 3.4 cm LVIDd: 4.7 cmFS: 40.1 % Ao root diam: 3.2 cm IVSd: 0.89 cm LVIDs: 2.8 cmEDV(Teich): 101.6 ml LVPWd: 1.0 cmESV(Teich): 29.7 ml Ao root area: 8.1 cm2 EF(Teich): 70.7 % LA dimension: 4.3 cm LVOT diam: 1.9 cm LVOT area: 2.9 cm2 Doppler Measurements \T\ Calculations MV E max félix: MV P1/2t max félix: Ao V2 max: AI max félix: 128.3 cm/sec 127.3 cm/sec 148.0 cm/sec 337.7 cm/sec MV A max félix: MV P1/2t: 67.0 msec Ao max PG: AI max P.8 cm/sec MVA(P1/2t): 3.3 cm2 8.8 mmHg 45.6 mmHg MV E/A: 1.3 MV dec slope: NAZ(V,D): 2.1 cm2AI dec slope: 556.4 cm/sec2 137.4 cm/sec2 MV dec time: AI P1/2t: 0.22 sec 719.8 msec LV V1 max PG: PA V2 max: TR max félix: 4.6 mmHg 73.1 cm/sec 312.5 cm/sec LV V1 max: PA max P.1 mmHg TR max P.8 cm/sec 39.1 mmHg Left Ventricle The left ventricle is grossly normal size. There is mild concentric left ventricular hypertrophy. The left ventricular ejection fraction is normal. Doppler measurements suggest pseudonormalized left ventricular relaxation, which is associated with grade II/IV or mild to moderate diastolic dysfunction. Wall motion cannot be accurately commented on, but no definite regional wall motion abnormalities noted. Right Ventricle The right ventricle is normal in size, thickness and function. There is normal right ventricular wall thickness. The right ventricular systolic function is normal. Atria The right atrium is normal. The left atrium is mildly dilated. Interarterial septum not well visualized and not well dopplered. Cannot comment on ASD/PFO presence. Mitral Valve There is mild mitral leaflet calcification. There is no mitral valve stenosis. There is a mild amount of mitral regurgitation. Aortic Valve The aortic valve is mildly calcified. There is no aortic valve stenosis. There is a mild amount of aortic regurgitation. Tricuspid Valve The tricuspid valve is not well visualized, but is grossly normal. There is no tricuspid stenosis. There is a trace to mild amount of tricuspid regurgitation. There is mild pulmonary hypertension by echo. Right ventricular systolic pressure is estimated to be elevated at 30-40mmHg. Pulmonic Valve The pulmonic valve is not well visualized. Great Vessels The aortic root is not well visualized. The inferior vena cava was not well visualized. Effusions Minimal pericardial effusion. : JAYDEN PADILLA > Lucrecia Romero
[2016-10-06] MEDS: ATORVASTATIN CALCIUM 80 MG TABLET PO SCH (22:52)
[2016-10-07] MEDS: CLINDAMYCIN 900 MG/D5W RTU 50 ML IV SCH ×3 (01:58→17:00)
[2016-10-07] MEDS: ACETAMINOPHEN 325 MG TABLET PO PRN ×2 (03:53→12:09)
[2016-10-07] MEDS: KETOROLAC TROMETHAMINE INJ/PF 30 MG/1 ML SDV IV PRN ×2 (06:11→16:50)
[2016-10-07] MEDS: HEPARIN SOD (PORCINE) 5,000 UNIT/ML 1 ML SYRINGE SUBCUT SCH ×3 (06:11→21:39)
[2016-10-07 06:19] LABS: HEMATOCRIT 19.7 % (36.0-47.0); HGB HCT DIFFERENCE -0.2; MEAN CORPUSCULAR HEMOGLOBIN 23.5 pg (27.0-33.4); MEAN CORPUSCULAR HGB CONC 32.9 g/dL (32.0-36.0); MEAN CORPUSCULAR VOLUME 71 fl (80-97); RED BLOOD COUNT 2.75 10^6/uL (3.72-5.28); RED CELL DISTRIBUTION WIDTH 16.3 % (11.5-14.0); WHITE BLOOD COUNT 12.2 10^3/uL (4.0-10.5)
[2016-10-07 06:36] LABS: ANION GAP 10 (5-19); BLOOD UREA NITROGEN 13 mg/dL (7-20); CALCIUM 7.8 mg/dL (8.4-10.2); CARBON DIOXIDE 20 mmol/L (22-30); CHLORIDE 107 mmol/L (98-107); CREATININE RESULT 0.84 mg/dL (0.52-1.25); GLUCOSE 55 mg/dL (75-110); POTASSIUM 3.8 mmol/L (3.6-5.0); SODIUM 136.7 mmol/L (137-145)
[2016-10-07 06:45] LABS: BASOPHILS % (MANUAL) 0 % (0-2); EOSINOPHILS % (MANUAL) 1 % (0-6); LYMPHOCYTES % (MANUAL) 4 % (13-45); TOTAL CELLS COUNTED 100
[2016-10-07 06:47] LABS: ANISOCYTOSIS 1+; OVALOCYTES SLIGHT; POIKILOCYTOSIS SLIGHT; TARGET CELLS SLIGHT; TEAR DROP CELLS SLIGHT; TOXIC VACUOLATION PRESENT
--- NOTE | 2016-10-07 07:00 | PDOC PROGRESS REPORT ---
Subjective Progress Note for:: 10/07/16 Subjective:: Patient complaining of pain with passive range of motion of the right ankle Physical Exam Vital Signs: Temp Pulse Resp BP Pulse Ox 38.3 C H 69 18 102/58 L 95 10/07/16 04:32 10/07/16 06:53 10/07/16 04:32 10/07/16 04:32 10/07/16 04:32 Intake & Output 10/05/16 10/06/16 10/07/16 06:59 06:59 06:59 Intake Total 590 622 Output Total 0 Balance 590 622 Weight 46.3 kg General appearance: PRESENT: no acute distress Head exam: PRESENT: normocephalic Respiratory exam: PRESENT: unlabored Cardiovascular exam: PRESENT: RRR Pulses: PRESENT: +1 pedal pulses bilateral Vascular exam: PRESENT: normal capillary refill GI/Abdominal exam: PRESENT: soft Rectal exam: PRESENT: deferred Extremities exam: PRESENT: tenderness, other - Right ankle. Incisions remain well sealed. There is no drainage. There is no erythema. There is no induration. Psychiatric exam: PRESENT: appropriate affect, normal mood. ABSENT: homicidal ideation, suicidal ideation Results Laboratory Results: 10/07/16 05:42 10/07/16 05:42 10/07/16 10/07/16 05:42 05:42 WBC 12.2 H RBC 2.75 L Hgb 6.5 L Hct 19.7 L MCV 71 L MCH 23.5 L MCHC 32.9 RDW 16.3 H Plt Count 488 H Seg Neutrophils % Not Reportable Lymphocytes % Not Reportable Monocytes % Not Reportable Eosinophils % Not Reportable Basophils % Not Reportable Absolute Neutrophils Not Reportable Absolute Lymphocytes Not Reportable Absolute Monocytes Not Reportable Absolute Eosinophils Not Reportable Absolute Basophils Not Reportable Sodium 136.7 L Potassium 3.8 Chloride 107 Carbon Dioxide 20 L Anion Gap 10 BUN 13 Creatinine 0.84 Est GFR ( Amer) > 60 Est GFR (Non-Af Amer) > 60 Glucose 55 L Calcium 7.8 L Impressions: Chest X-Ray 10/05/16 15:14 IMPRESSION: No acute abnormality in the chest. Head CT 10/05/16 15:14 IMPRESSION: CHRONIC CHANGES OF ATROPHY AND MICROVASCULAR ISCHEMIA. NO ACUTE PROCESS. Ankle X-Ray 10/05/16 15:29 IMPRESSION: Interval ORIF ankle fracture dislocation. No evidence of postoperative complication. Head CTA 10/06/16 00:00 IMPRESSION: NO CTA EVIDENCE OF STENOSIS OR ANEURYSM OF THE [place]. Carotid Doppler Study 10/06/16 11:41 IMPRESSION: No flow significant stenosis at the right carotid bifurcation. 50 to 69% diameter stenosis left proximal ICA at the carotid bifurcation based on velocity criteria Assessment & Plan - Diagnosis (1) Bimalleolar fracture of right ankle Qualifiers: Encounter type: subsequent encounter Fracture type: closed Fracture healing: with routine healing Qualified Code(s): S82.841D - Displaced bimalleolar fracture of right lower leg, subsequent encounter for closed fracture with routine healing Is this a current diagnosis for this admission?: YesPlan: Patient now has become febrile with fevers to 38.3 and has led cultures positive for gram positive cocci. Clearly there is a focus of infection but I continue to be underwhelmed with the right ankle as a source. Having said that , I don't know that I can point to an alternative source. I will proceed with an aspiration of the lateral aspect of the ankle. Later today - Time Time Spent with patient: 15-24 minutes
[2016-10-07] MEDS ORDERED: FUROSEMIDE INJ/PF 20 MG/2 ML SDV IV PRN (07:42)
[2016-10-07] MEDS ORDERED: NORMAL SALINE 250 ML IV PRN ×2 (07:42)
[2016-10-07] MEDS ORDERED: VANCOMYCIN HCL 0 MG in DEXTROSE 5%-WATER 250 ML IV NR (08:45)
--- NOTE | 2016-10-07 09:11 | PDOC PROGRESS REPORT ---
Subjective Progress Note for:: 10/07/16 Subjective:: Patient seen on morning rounds. She is resting in bed her daughter is at her bedside. She denies any shortness of breath, cough or dyspnea. She denies any chest pain or dizziness. She continues to have mild left sided facial droop. She is complaining of pain in right ankle and calf. There is mild swelling noted at the medial malleolus. She denies nausea, vomiting, abdominal pain, dark stools or diarrhea. She voices no other complaints. Physical Exam Vital Signs: Temp Pulse Resp BP Pulse Ox 97.6 F 67 16 88/54 L 94 10/07/16 07:24 10/07/16 07:24 10/07/16 07:24 10/07/16 08:00 10/07/16 07:24 Intake & Output 10/06/16 10/07/16 10/08/16 06:59 06:59 06:59 Intake Total 590 922 Output Total 0 Balance 590 922 Weight 46.3 kg General appearance: PRESENT: no acute distress, well-developed, well-nourished, other - mild left sided facial droop Head exam: PRESENT: atraumatic, normocephalic Eye exam: PRESENT: conjunctiva pale Ear exam: PRESENT: normal external ear exam Mouth exam: PRESENT: moist, neck supple, tongue midline Teeth exam: PRESENT: edentulous Neck exam: ABSENT: carotid bruit, JVD, lymphadenopathy, thyromegaly Respiratory exam: PRESENT: clear to auscultation arely. ABSENT: rales, rhonchi, wheezes Cardiovascular exam: PRESENT: RRR. ABSENT: diastolic murmur, rubs, systolic murmur Pulses: PRESENT: normal radial pulses Vascular exam: PRESENT: normal capillary refill GI/Abdominal exam: PRESENT: normal bowel sounds, soft. ABSENT: distended, guarding, mass, organolmegaly, rebound, tenderness Rectal exam: PRESENT: deferred Extremities exam: PRESENT: calf tenderness, tenderness, +1 edema - right ankle and distal right calf Musculoskeletal exam: PRESENT: tenderness Neurological exam: PRESENT: alert, awake, oriented to person, oriented to place , oriented to time, oriented to situation, CN II-XII grossly intact, other - left facial droop, mild left upper extremity weakness 4/5. ABSENT: motor sensory deficit Psychiatric exam: PRESENT: appropriate affect, normal mood. ABSENT: homicidal ideation, suicidal ideation Skin exam: PRESENT: dry, intact, warm. ABSENT: cyanosis, rash Results Laboratory Results: 10/07/16 05:42 10/07/16 05:42 10/07/16 10/07/16 05:42 05:42 WBC 12.2 H RBC 2.75 L Hgb 6.5 L Hct 19.7 L MCV 71 L MCH 23.5 L MCHC 32.9 RDW 16.3 H Plt Count 488 H Seg Neutrophils % Not Reportable Lymphocytes % Not Reportable Monocytes % Not Reportable Eosinophils % Not Reportable Basophils % Not Reportable Absolute Neutrophils Not Reportable Absolute Lymphocytes Not Reportable Absolute Monocytes Not Reportable Absolute Eosinophils Not Reportable Absolute Basophils Not Reportable Sodium 136.7 L Potassium 3.8 Chloride 107 Carbon Dioxide 20 L Anion Gap 10 BUN 13 Creatinine 0.84 Est GFR ( Amer) > 60 Est GFR (Non-Af Amer) > 60 Glucose 55 L Calcium 7.8 L Impressions: Chest X-Ray 10/05/16 15:14 IMPRESSION: No acute abnormality in the chest. Head CT 10/05/16 15:14 IMPRESSION: CHRONIC CHANGES OF ATROPHY AND MICROVASCULAR ISCHEMIA. NO ACUTE PROCESS. Ankle X-Ray 10/05/16 15:29 IMPRESSION: Interval ORIF ankle fracture dislocation. No evidence of postoperative complication. Head CTA 10/06/16 00:00 IMPRESSION: NO CTA EVIDENCE OF STENOSIS OR ANEURYSM OF THE [place]. Carotid Doppler Study 10/06/16 11:41 IMPRESSION: No flow significant stenosis at the right carotid bifurcation. 50 to 69% diameter stenosis left proximal ICA at the carotid bifurcation based on velocity criteria Assessment & Plan - Diagnosis (1) SIRS (systemic inflammatory response syndrome) Is this a current diagnosis for this admission?: YesPlan: She continues to be febrile,hypotensive, and increasing leucocytosis. 2 blood cultures positive from coagulase positive GM + cocci. Will add renally dosed vancomycin for possible MRSA coverage. Dr Easley planning joint aspirate of right knee later today. No other source of infection identified. (2) Bimalleolar fracture of right ankle Qualifiers: Encounter type: subsequent encounter Fracture type: closed Fracture healing: with routine healing Qualified Code(s): S82.841D - Displaced bimalleolar fracture of right lower leg, subsequent encounter for closed fracture with routine healing Is this a current diagnosis for this admission?: YesPlan: Patient underwent ORIF of right ankle in 08/[address] Easley. He is following (3) Acute blood loss anemia Is this a current diagnosis for this admission?: YesPlan: Hgb down to 6.5, she came in at 9.0. No overt bleeding. Will guiac stools. Anemia studies. Transfuse 2 units PRBCs today and follow (4) Generalized weakness Is this a current diagnosis for this admission?: YesPlan: Patient has had multiple falls at home prior to admission. Lives with family and has a walker. She is deconditioned and anemic with borderline left internal artery stenosis. CTA of the head was negative (5) Hypertension Qualifiers: Hypertension type: essential hypertension Qualified Code(s): I10 - Essential (primary) hypertension Is this a current diagnosis for this admission?: YesPlan: Hypotensive this am. Will hold antihypertensives, transfuse and assess (6) TIA (transient ischemic attack) Qualifiers: Transient cerebral ischemia type: unspecified Qualified Code(s): G45.9 - Transient cerebral ischemic attack, unspecified Is this a current diagnosis for this admission?: YesPlan: Left sided facial droop improved according to daughter. Moderate left internal carotid artery stenosis. CTA of the head no significant findings - Time Time Spent with patient: 25-34 minutes Critical Time spent with patient: 25-34 minutes Medications reviewed and adjusted accordingly: Yes
[2016-10-07] MEDS: DOCUSATE SODIUM 100 MG CAPSULE PO SCH ×2 (09:17→17:00)
[2016-10-07] MEDS: ASPIRIN 325 MG TABLET PO SCH (09:21)
[2016-10-07] MEDS: VANCOMYCIN HCL 500 MG in DEXTROSE 5%-WATER 100 ML IV SCH (12:10)
[2016-10-07 19:40] LABS: HEMATOCRIT 27.2 % (36.0-47.0); HGB HCT DIFFERENCE -0.2; MEAN CORPUSCULAR HEMOGLOBIN 25.1 pg (27.0-33.4); RED BLOOD COUNT 3.57 10^6/uL (3.72-5.28); RED CELL DISTRIBUTION WIDTH 19.2 % (11.5-14.0); WHITE BLOOD COUNT 17.5 10^3/uL (4.0-10.5)
[2016-10-07 19:49] LABS: MEAN CORPUSCULAR VOLUME 76 fl (80-97)
[2016-10-07 20:00] LABS: BASOPHILS % (MANUAL) 0 % (0-2); EOSINOPHILS % (MANUAL) 1 % (0-6); LYMPHOCYTES % (MANUAL) 4 % (13-45); TOTAL CELLS COUNTED 100
[2016-10-07 20:03] LABS: ANISOCYTOSIS 2+; HYPOCHROMASIA SLIGHT; MICROCYTOSIS SLIGHT; TOXIC GRANULATION SLIGHT
[2016-10-07] MEDS ORDERED: NORMAL SALINE 1000 ML 250 ML IV ONE (21:08)
[2016-10-07] MEDS ORDERED: TRAMADOL HCL 50 MG TABLET PO PRN (21:09)
[2016-10-07] MEDS: ATORVASTATIN CALCIUM 80 MG TABLET PO SCH (21:39)
[2016-10-08] MEDS ORDERED: NORMAL SALINE 1000 ML 500 ML IV ONE (00:07)
[2016-10-08] MEDS: CLINDAMYCIN 900 MG/D5W RTU 50 ML IV SCH ×3 (02:48→18:55)
[2016-10-08] MEDS: KETOROLAC TROMETHAMINE INJ/PF 30 MG/1 ML SDV IV PRN ×2 (04:55→19:48)
[2016-10-08] MEDS: HEPARIN SOD (PORCINE) 5,000 UNIT/ML 1 ML SYRINGE SUBCUT SCH ×3 (05:37→21:58)
[2016-10-08 06:31] LABS: HEMATOCRIT 27.1 % (36.0-47.0); HEMOGLOBIN 8.9 g/dL (12.0-15.5); HGB HCT DIFFERENCE -0.4; MEAN CORPUSCULAR HEMOGLOBIN 25.2 pg (27.0-33.4); MEAN CORPUSCULAR HGB CONC 32.9 g/dL (32.0-36.0); MEAN CORPUSCULAR VOLUME 77 fl (80-97); RED BLOOD COUNT 3.53 10^6/uL (3.72-5.28); RED CELL DISTRIBUTION WIDTH 19.2 % (11.5-14.0); WHITE BLOOD COUNT 15.8 10^3/uL (4.0-10.5)
[2016-10-08 06:38] LABS: ANION GAP 9 (5-19); BLOOD UREA NITROGEN 14 mg/dL (7-20); CALCIUM 7.4 mg/dL (8.4-10.2); CARBON DIOXIDE 20 mmol/L (22-30); CHLORIDE 107 mmol/L (98-107); CREATININE RESULT 1.15 mg/dL (0.52-1.25); GLUCOSE 52 mg/dL (75-110); POTASSIUM 4.2 mmol/L (3.6-5.0); SODIUM 135.7 mmol/L (137-145)
--- NOTE | 2016-10-08 06:57 | PDOC PROGRESS REPORT ---
Subjective Progress Note for:: 10/08/16 Subjective:: Patient complains of right lower extremity pain Physical Exam Vital Signs: Temp Pulse Resp BP Pulse Ox 36.4 C 76 20 101/52 L 96 10/08/16 04:30 10/08/16 04:30 10/08/16 04:30 10/08/16 04:30 10/08/16 04:30 Intake & Output 10/06/16 10/07/16 10/08/16 06:59 06:59 06:59 Intake Total 932 647 1366 Output Total 0 0 Balance 308 424 9555 Weight 46.3 kg 55 kg General appearance: PRESENT: mild distress Head exam: PRESENT: normocephalic Respiratory exam: PRESENT: unlabored Pulses: PRESENT: +1 pedal pulses bilateral Vascular exam: PRESENT: normal capillary refill Extremities exam: PRESENT: other - Patient began to have spontaneous drainage from the lateral malleolar incision. This morning at about 3 AM. Cultures are obtained and sent for culture and sensitivity Results Laboratory Results: 10/08/16 05:41 10/07/16 10/07/16 10/08/16 08:22 19:30 05:41 WBC 17.5 H 15.8 H RBC 3.57 L 3.53 L Hgb 9.0 L D 8.9 L Hct 27.2 L 27.1 L MCV 76 L D 77 L MCH 25.1 L 25.2 L MCHC 33.0 32.9 RDW 19.2 H 19.2 H Plt Count 521 H 508 H Seg Neutrophils % Not Reportable Not Reportable Lymphocytes % Not Reportable Not Reportable Monocytes % Not Reportable Not Reportable Eosinophils % Not Reportable Not Reportable Basophils % Not Reportable Not Reportable Absolute Neutrophils Not Reportable Not Reportable Absolute Lymphocytes Not Reportable Not Reportable Absolute Monocytes Not Reportable Not Reportable Absolute Eosinophils Not Reportable Not Reportable Absolute Basophils Not Reportable Not Reportable Retic Count (auto) 0.82 Absolute Retic 0.029 Blood Type O POSITIVE Antibody Screen NEGATIVE Impressions: Chest X-Ray 10/05/16 15:14 IMPRESSION: No acute abnormality in the chest. Head CT 10/05/16 15:14 IMPRESSION: CHRONIC CHANGES OF ATROPHY AND MICROVASCULAR ISCHEMIA. NO ACUTE PROCESS. Ankle X-Ray 10/05/16 15:29 IMPRESSION: Interval ORIF ankle fracture dislocation. No evidence of postoperative complication. Head CTA 10/06/16 00:00 IMPRESSION: NO CTA EVIDENCE OF STENOSIS OR ANEURYSM OF THE [place]. Carotid Doppler Study 10/06/16 11:41 IMPRESSION: No flow significant stenosis at the right carotid bifurcation. 50 to 69% diameter stenosis left proximal ICA at the carotid bifurcation based on velocity criteria Assessment & Plan - Diagnosis (1) Bimalleolar fracture of right ankle Qualifiers: Encounter type: subsequent encounter Fracture type: closed Fracture healing: with routine healing Qualified Code(s): S82.841D - Displaced bimalleolar fracture of right lower leg, subsequent encounter for closed fracture with routine healing Is this a current diagnosis for this admission?: YesPlan: At this point there is little question about the etiology of the patient's bacteremia and elevated inflammatory parameters. Patient has had spontaneous drainage which in some ways decompresses the situation. Patient will need a formal irrigation debridement in the operating room - Time Time Spent with patient: 15-24 minutes
[2016-10-08 07:16] LABS: BAND NEUTROPHILS % (MANUAL) 7 % (3-5); BASOPHILS % (MANUAL) 0 % (0-2); EOSINOPHILS % (MANUAL) 2 % (0-6); HYPOCHROMASIA 1+; LYMPHOCYTES % (MANUAL) 11 % (13-45); OVALOCYTES 1+; POIKILOCYTOSIS 1+; POLYCHROMASIA SLIGHT; TOTAL CELLS COUNTED 100
[2016-10-08 07:44] LABS: FOLATE 7.86 ng/mL (>2.76)
[2016-10-08] MEDS: ACETAMINOPHEN 325 MG TABLET PO PRN (08:19)
[2016-10-08] MEDS ORDERED: SUCCINYLCHOLINE CHLORIDE INJ 200 MG/10 ML VIAL ONE (08:35)
[2016-10-08] MEDS: ASPIRIN 325 MG TABLET PO SCH (09:01)
[2016-10-08] MEDS: DOCUSATE SODIUM 100 MG CAPSULE PO SCH ×2 (09:01→17:35)
--- NOTE | 2016-10-08 11:14 | Physician Advisory Note ---
Physician Advisor ProgressNote .: Pursuant to the plan for [facility], I have reviewed the medical record for this patient. Physician Advisor Statement: Possible documentation opportunities if attending agrees: 1. Do you believe pt has: "SIRS due to [non-infectious cause]", or SIRS [without actual clinical sepsis] due to infxn - [which codes as simply that localized infxn] or "possible sepsis, due to GPC [____], due to ____ infection"? Do you believe it was present on admission, or not? (First documented elevated temp here was >24hrs after arrival.) - Right now, the report of SIRS without cause will require a query. 2. R.e. Acute Blood Loss Anemia dx - if this dx is suspected, we need most likely suspected cause documented, if at all possible. As always, if concerned about any unstable VS or abnormal labs, please comment on them & note what doing about them, & please document each day the potential clinical problems you are concerned could occur if pt not kept in hospital for tx at this time. Thanks for your help with documentation accuracy/specificity improvement! Zeina Ayala MD [facility] Physician Advisor, Fellow of Hospital Medicine
[2016-10-08] MEDS ORDERED: RINGERS SOLUTION,LACTATED 1,000 ML IV PRN ×2 (11:43→17:38)
[2016-10-08] MEDS: VANCOMYCIN HCL 500 MG in DEXTROSE 5%-WATER 100 ML IV SCH (11:49)
[2016-10-08 12:34] LABS: HEMOGLOBIN 6.5 g/dL (12.0-15.5)
--- NOTE | 2016-10-08 13:18 | PDOC PROGRESS REPORT ---
Subjective Progress Note for:: 10/08/16 Subjective:: The patient is currently lying in bed. The patient's only complaint is that she is hungry. The patient states that her ankle has improved since it open this morning. The patient denies any nausea, vomiting, diarrhea, shortness of breath, dizziness, chest pain, heart palpitations, fevers, or chills. The patient has remained afebrile. Blood pressures have been in a good range. The patient voices no other concerns at this time. Review of systems: The rest of the review of systems is negative. Physical Exam Vital Signs: Temp Pulse Resp BP Pulse Ox 98.0 F 64 18 97/49 L 98 10/08/16 11:15 10/08/16 11:15 10/08/16 11:15 10/08/16 11:15 10/08/16 11:15 Intake & Output 10/06/16 10/07/16 10/08/16 23:59 23:59 23:59 Intake Total 1152 1460 805 Output Total 0 0 Balance 1152 1460 805 Weight 46.3 kg 55 kg General appearance: PRESENT: no acute distress, cooperative, well-developed, well-nourished Head exam: PRESENT: atraumatic, normocephalic. Eye exam: PRESENT: conjunctiva pink, EOMI, PERRLA - Sluggish, other - Facial droop. ABSENT: scleral icterus Ear exam: PRESENT: normal external ear exam Mouth exam: PRESENT: moist, tongue midline Neck exam: ABSENT: carotid bruit, JVD, lymphadenopathy, thyromegaly Respiratory exam: PRESENT: clear to auscultation arely. ABSENT: rales, rhonchi, wheezes Cardiovascular exam: PRESENT: RRR. ABSENT: diastolic murmur, rubs, systolic murmur Pulses: PRESENT: normal dorsalis pedis pul Vascular exam: PRESENT: normal capillary refill GI/Abdominal exam: PRESENT: normal bowel sounds, soft. ABSENT: distended, guarding, mass, organolmegaly, rebound, tenderness Rectal exam: PRESENT: deferred Extremities exam: PRESENT: full ROM, joint swelling - Right ankle, slight warmth noted. ABSENT: calf tenderness, clubbing Neurological exam: PRESENT: alert, awake, oriented to person, oriented to place , oriented to time, oriented to situation. ABSENT: motor sensory deficit Psychiatric exam: PRESENT: appropriate affect, normal mood. ABSENT: homicidal ideation, suicidal ideation Skin exam: PRESENT: dry, intact, warm. ABSENT: cyanosis, rash. Results Laboratory Results: 10/08/16 05:41 10/08/16 05:41 10/07/16 10/07/16 10/07/16 05:42 08:22 19:30 WBC 12.2 H 17.5 H RBC 2.75 L 3.57 L Hgb 6.5 L 9.0 L D Hct 19.7 L 27.2 L MCV 71 L 76 L D MCH 23.5 L 25.1 L MCHC 32.9 33.0 RDW 16.3 H 19.2 H Plt Count 488 H 521 H Seg Neutrophils % Not Reportable Lymphocytes % Not Reportable Monocytes % Not Reportable Eosinophils % Not Reportable Basophils % Not Reportable Absolute Neutrophils Not Reportable Absolute Lymphocytes Not Reportable Absolute Monocytes Not Reportable Absolute Eosinophils Not Reportable Absolute Basophils Not Reportable Retic Count (auto) Absolute Retic Sodium Potassium Chloride Carbon Dioxide Anion Gap BUN Creatinine Est GFR ( Amer) Est GFR (Non-Af Amer) Glucose Calcium Iron TIBC % Saturation Ferritin Vitamin B12 Folate Stool Occult Blood Blood Type O POSITIVE Antibody Screen NEGATIVE 10/08/16 10/08/16 10/08/16 05:41 05:41 09:53 WBC 15.8 H RBC 3.53 L Hgb 8.9 L Hct 27.1 L MCV 77 L MCH 25.2 L MCHC 32.9 RDW 19.2 H Plt Count 508 H Seg Neutrophils % Not Reportable Lymphocytes % Not Reportable Monocytes % Not Reportable Eosinophils % Not Reportable Basophils % Not Reportable Absolute Neutrophils Not Reportable Absolute Lymphocytes Not Reportable Absolute Monocytes Not Reportable Absolute Eosinophils Not Reportable Absolute Basophils Not Reportable Retic Count (auto) 0.82 Absolute Retic 0.029 Sodium 135.7 L Potassium 4.2 Chloride 107 Carbon Dioxide 20 L Anion Gap 9 BUN 14 Creatinine 1.15 Est GFR ( Amer) 54 L Est GFR (Non-Af Amer) 44 L Glucose 52 L Calcium 7.4 L Iron < 10 L TIBC 124 L % Saturation UNABLE TO CALCULATE Ferritin 563.00 H Vitamin B12 378.0 Folate 7.86 Stool Occult Blood NEGATIVE Blood Type Antibody Screen Impressions: Chest X-Ray 10/05/16 15:14 IMPRESSION: No acute abnormality in the chest. Head CT 10/05/16 15:14 IMPRESSION: CHRONIC CHANGES OF ATROPHY AND MICROVASCULAR ISCHEMIA. NO ACUTE PROCESS. Ankle X-Ray 10/05/16 15:29 IMPRESSION: Interval ORIF ankle fracture dislocation. No evidence of postoperative complication. Head CTA 10/06/16 00:00 IMPRESSION: NO CTA EVIDENCE OF STENOSIS OR ANEURYSM OF THE [place] OF [place]. Carotid Doppler Study 10/06/16 11:41 IMPRESSION: No flow significant stenosis at the right carotid bifurcation. 50 to 69% diameter stenosis left proximal ICA at the carotid bifurcation based on velocity criteria Assessment & Plan - Diagnosis (1) Bimalleolar fracture of right ankle Qualifiers: Encounter type: subsequent encounter Fracture type: closed Fracture healing: with routine healing Qualified Code(s): S82.841D - Displaced bimalleolar fracture of right lower leg, subsequent encounter for closed fracture with routine healing Is this a current diagnosis for this admission?: YesPlan: Status post repair. The patient is to go to the OR today with Dr. Easley for debridement. (2) Gram-positive cocci bacteremia Is this a current diagnosis for this admission?: YesPlan: Most likely secondary to #1 will await culture finalization. (3) Sepsis Qualifiers: Sepsis type: sepsis due to unspecified organism Qualified Code(s): A41.9 - Sepsis, unspecified organism Is this a current diagnosis for this admission?: YesPlan: Gram-positive cocci bacteremia. The patient is not requiring pressors. (4) Generalized weakness Is this a current diagnosis for this admission?: Yes (5) TIA (transient ischemic attack) Qualifiers: Transient cerebral ischemia type: unspecified Qualified Code(s): G45.9 - Transient cerebral ischemic attack, unspecified Is this a current diagnosis for this admission?: Yes (6) Hypertension Qualifiers: Hypertension type: essential hypertension Qualified Code(s): I10 - Essential (primary) hypertension Is this a current diagnosis for this admission?: YesPlan: Will continue home medications. (7) Acute blood loss anemia Is this a current diagnosis for this admission?: Yes (8) Diastolic CHF Qualifiers: Congestive heart failure chronicity: chronic Qualified Code(s): I50.32 - Chronic diastolic (congestive) heart failure Is this a current diagnosis for this admission?: YesPlan: The patient appears optivolemic - Time Time Spent with patient: 25-34 minutes Medications reviewed and adjusted accordingly: Yes Anticipated discharge: Home Within: within 24 hours, within 48 hours
[2016-10-08] MEDS ORDERED: BUPIVACAINE HCL 0.5%-EPI 1:200000 INJ/PF 30 ML VIAL ONE (16:25)
[2016-10-08] MEDS ORDERED: BACITRACIN INJ 50,000 UNIT VIAL ONE ×2 (16:25→17:02)
[2016-10-08] MEDS ORDERED: PROPOFOL INJ 200 MG/20 ML VIAL IV ONE (16:40)
[2016-10-08] MEDS ORDERED: FENTANYL CITRATE INJ/PF 100 MCG/2 ML AMPUL ONE (16:40)
[2016-10-08] MEDS ORDERED: ONDANSETRON HCL INJ/PF 4 MG/2 ML SDV IV PRN (16:59)
[2016-10-08] MEDS ORDERED: FENTANYL CITRATE INJ/PF 100 MCG/2 ML AMPUL IV PRN (16:59)
[2016-10-08] MEDS ORDERED: DIPHENHYDRAMINE HCL 50 MG/ML VIAL IV PRN (16:59)
[2016-10-08] MEDS ORDERED: PROMETHAZINE HCL INJ 25 MG/1 ML VIAL IV PRN (16:59)
[2016-10-08] MEDS ORDERED: MORPHINE SULFATE 10 MG/ML INJ IV PRN (16:59)
--- NOTE | 2016-10-08 17:35 | Operative Report ---
Operative Report DATE OF SURGERY: 10/08/16 PREOPERATIVE DIAGNOSIS: Surgical site infection status post open reduction internal fixation of right bimalleolar ankle fracture OPERATION: IND, hardware removal SURGEON: ARMANDO SAAB ANESTHESIA: GA TISSUE REMOVED OR ALTERED: Cultures to microbiology, hardware to pathology ESTIMATED BLOOD LOSS: 50 PROCEDURE: With the patient supine on the operating table the right looks terms prepped and draped in sterile fashion. A longitudinal incision was made over the distal fibula and sharp dissection was used to expose the underlying plate. This is easily removed with the appropriate screwdriver. The plate is removed. The wound bed is debrided. It's irrigated with 2 L of normal sunken a bacitracin. The wound is reapproximated using interrupted 3-0 nylon. Attention is now turned to the medial aspect. Percutaneously pins are placed into the 2 medial malleolar screws. Stab wounds were made without each of the pins. Appropriate screw drivers and used uneventfully remove the screws. At this point the patient's placed into a postoperative plaster splint and returned to the PACU in satisfactory condition.
[2016-10-08] MEDS: FENTANYL CITRATE INJ/PF 100 MCG/2 ML AMPUL ONE ×2 (18:01→18:06)
[2016-10-08] MEDS: ATORVASTATIN CALCIUM 80 MG TABLET PO SCH (21:58)
[2016-10-09] MEDS: CLINDAMYCIN 900 MG/D5W RTU 50 ML IV SCH ×2 (01:43→07:43)
[2016-10-09] MEDS: KETOROLAC TROMETHAMINE INJ/PF 30 MG/1 ML SDV IV PRN ×2 (02:13→15:55)
[2016-10-09 05:56] LABS: ABSOLUTE EOSINOPHILS # (AUTO) 0.2 10^3/uL (0.0-0.6); ABSOLUTE LYMPHOCYTES (AUTO) 0.7 10^3/uL (0.5-4.7); ABSOLUTE MONOCYTES (AUTO) 1.5 10^3/uL (0.1-1.4); ABSOLUTE NEUT (AUTO) 9.4 10^3/uL (1.7-8.2); BASOPHILS % (AUTO) 0.4 % (0-2); EOSINOPHILS % (AUTO) 1.3 % (0-6); HEMATOCRIT 25.3 % (36.0-47.0); HEMOGLOBIN 8.4 g/dL (12.0-15.5); HGB HCT DIFFERENCE -0.1; LYMPHOCYTES % (AUTO) 6.1 % (13-45); MEAN CORPUSCULAR HEMOGLOBIN 25.2 pg (27.0-33.4); MEAN CORPUSCULAR HGB CONC 33.3 g/dL (32.0-36.0); MEAN CORPUSCULAR VOLUME 76 fl (80-97); MONOCYTES % (AUTO) 12.5 % (3-13); RED BLOOD COUNT 3.33 10^6/uL (3.72-5.28); RED CELL DISTRIBUTION WIDTH 19.5 % (11.5-14.0); SEGMENTED NEUTROPHILS % (AUTO) 79.7 % (42-78); WHITE BLOOD COUNT 11.8 10^3/uL (4.0-10.5)
[2016-10-09] MEDS: HEPARIN SOD (PORCINE) 5,000 UNIT/ML 1 ML SYRINGE SUBCUT SCH ×3 (06:08→22:13)
[2016-10-09 06:18] LABS: ANION GAP 11 (5-19); BLOOD UREA NITROGEN 16 mg/dL (7-20); CARBON DIOXIDE 19 mmol/L (22-30); CHLORIDE 106 mmol/L (98-107); CREATININE RESULT 1.24 mg/dL (0.52-1.25); GLUCOSE 45 mg/dL (75-110); POTASSIUM 3.9 mmol/L (3.6-5.0); SODIUM 135.8 mmol/L (137-145)
[2016-10-09 06:31] LABS: CALCIUM 6.9 mg/dL (8.4-10.2)
--- NOTE | 2016-10-09 06:56 | PDOC PROGRESS REPORT ---
Subjective Progress Note for:: 10/09/16 Subjective:: Patient remains afebrile overnight. Right foot pain is decreased compared to the last several days. Physical Exam Vital Signs: Temp Pulse Resp BP Pulse Ox 36.4 C 73 20 107/54 L 99 10/09/16 03:55 10/09/16 03:55 10/09/16 03:55 10/09/16 03:55 10/09/16 03:55 Intake & Output 10/07/16 10/08/16 10/09/16 06:59 06:59 06:59 Intake Total 922 1905 5403 Output Total 0 2020 Balance 922 1905 3383 Weight 55 kg 57.8 kg General appearance: PRESENT: no acute distress Head exam: PRESENT: normocephalic Respiratory exam: PRESENT: unlabored Pulses: PRESENT: +1 pedal pulses bilateral Vascular exam: PRESENT: normal capillary refill Rectal exam: PRESENT: deferred Extremities exam: PRESENT: other - Right lower extremity remains clean dry and intact. Results Laboratory Results: 10/09/16 05:16 10/09/16 05:16 10/07/16 10/08/16 10/08/16 05:42 05:41 05:41 WBC 12.2 H 15.8 H RBC 2.75 L 3.53 L Hgb 6.5 L 8.9 L Hct 19.7 L 27.1 L MCV 71 L 77 L MCH 23.5 L 25.2 L MCHC 32.9 32.9 RDW 16.3 H 19.2 H Plt Count 488 H 508 H Seg Neutrophils % Lymphocytes % Monocytes % Eosinophils % Basophils % Absolute Neutrophils Absolute Lymphocytes Absolute Monocytes Absolute Eosinophils Absolute Basophils Retic Count (auto) 0.82 Absolute Retic 0.029 Sodium 135.7 L Potassium 4.2 Chloride 107 Carbon Dioxide 20 L Anion Gap 9 BUN 14 Creatinine 1.15 Est GFR ( Amer) 54 L Est GFR (Non-Af Amer) 44 L Glucose 52 L Calcium 7.4 L Iron < 10 L TIBC 124 L % Saturation UNABLE TO CALCULATE Ferritin 563.00 H Vitamin B12 378.0 Folate 7.86 Stool Occult Blood 10/08/16 10/09/16 10/09/16 09:53 05:16 05:16 WBC 11.8 H RBC 3.33 L Hgb 8.4 L Hct 25.3 L MCV 76 L MCH 25.2 L MCHC 33.3 RDW 19.5 H Plt Count 504 H Seg Neutrophils % 79.7 H Lymphocytes % 6.1 L Monocytes % 12.5 Eosinophils % 1.3 Basophils % 0.4 Absolute Neutrophils 9.4 H Absolute Lymphocytes 0.7 Absolute Monocytes 1.5 H Absolute Eosinophils 0.2 Absolute Basophils 0.0 Retic Count (auto) Absolute Retic Sodium 135.8 L Potassium 3.9 Chloride 106 Carbon Dioxide 19 L Anion Gap 11 BUN 16 Creatinine 1.24 Est GFR ( Amer) 49 L Est GFR (Non-Af Amer) 41 L Glucose 45 L Calcium 6.9 L* Iron TIBC % Saturation Ferritin Vitamin B12 Folate Stool Occult Blood NEGATIVE Impressions: Chest X-Ray 10/05/16 15:14 IMPRESSION: No acute abnormality in the chest. Head CT 10/05/16 15:14 IMPRESSION: CHRONIC CHANGES OF ATROPHY AND MICROVASCULAR ISCHEMIA. NO ACUTE PROCESS. Ankle X-Ray 10/05/16 15:29 IMPRESSION: Interval ORIF ankle fracture dislocation. No evidence of postoperative complication. Head CTA 10/06/16 00:00 IMPRESSION: NO CTA EVIDENCE OF STENOSIS OR ANEURYSM OF THE [place]. Carotid Doppler Study 10/06/16 11:41 IMPRESSION: No flow significant stenosis at the right carotid bifurcation. 50 to 69% diameter stenosis left proximal ICA at the carotid bifurcation based on velocity criteria Fluoroscopy 10/08/16 00:00 IMPRESSION: IMAGE(S) OBTAINED DURING PROCEDURE. Foot X-Ray 10/08/16 00:00 IMPRESSION: IMAGE(S) OBTAINED DURING PROCEDURE. Assessment & Plan - Diagnosis (1) Bimalleolar fracture of right ankle Qualifiers: Encounter type: subsequent encounter Fracture type: closed Fracture healing: with routine healing Qualified Code(s): S82.841D - Displaced bimalleolar fracture of right lower leg, subsequent encounter for closed fracture with routine healing Is this a current diagnosis for this admission?: YesPlan: Patient status post right ankle IND, hardware removal. Cultures are growing MSSA. I spoke with Dr. Lindsey regarding readjusting her antibiotic regimen. Plan for mobilization with physical therapy on a touchdown weightbearing restriction on the right lower extremity. - Time Time Spent with patient: 15-24 minutes Anticipated discharge: Home with Homehealth Within: within 48 hours
[2016-10-09] MEDS: METOPROLOL SUCCINATE 50 MG TAB.SR.24H PO SCH (07:41)
[2016-10-09] MEDS: ASPIRIN 325 MG TABLET PO SCH (07:41)
[2016-10-09] MEDS: ACETAMINOPHEN 325 MG TABLET PO PRN (07:42)
[2016-10-09] MEDS: DOCUSATE SODIUM 100 MG CAPSULE PO SCH ×2 (07:44→17:38)
[2016-10-09] MEDS ORDERED: CEFAZOLIN 2 GM/D5W RTU 50 ML IV SCH (12:00)
--- NOTE | 2016-10-09 16:15 | PDOC PROGRESS REPORT ---
Subjective Progress Note for:: 10/09/16 Subjective:: The patient is currently lying in bed. The patient's had a decent breakfast. The patient states that her ankle has improved since it open this morning since her procedure yesterday. The patient denies any nausea, vomiting, diarrhea, shortness of breath, dizziness, chest pain, heart palpitations, fevers, or chills. The patient has remained afebrile. Blood pressures have been in a good range. The patient voices no other concerns at this time. Daughters present at the bedside and active in the patient's care. Review of systems: The rest of the review of systems is negative. Physical Exam Vital Signs: Temp Pulse Resp BP Pulse Ox 98.0 F 65 16 105/50 L 96 10/09/16 11:32 10/09/16 11:32 10/09/16 11:32 10/09/16 11:32 10/09/16 11:32 Intake & Output 10/07/16 10/08/16 10/09/16 23:59 23:59 23:59 Intake Total 1460 5430 896 Output Total 2020 Balance 1460 3410 896 Weight 55 kg 57.8 kg General appearance: PRESENT: no acute distress, cooperative, well-developed, well-nourished Head exam: PRESENT: atraumatic, normocephalic. Eye exam: PRESENT: conjunctiva pink, EOMI, PERRLA - Sluggish, other - Facial droop. ABSENT: scleral icterus Ear exam: PRESENT: normal external ear exam Mouth exam: PRESENT: moist, tongue midline Neck exam: ABSENT: carotid bruit, JVD, lymphadenopathy, thyromegaly Respiratory exam: PRESENT: clear to auscultation arely. ABSENT: rales, rhonchi, wheezes Cardiovascular exam: PRESENT: RRR. ABSENT: diastolic murmur, rubs, systolic murmur Pulses: PRESENT: normal dorsalis pedis pul Vascular exam: PRESENT: normal capillary refill GI/Abdominal exam: PRESENT: normal bowel sounds, soft. ABSENT: distended, guarding, mass, organolmegaly, rebound, tenderness Rectal exam: PRESENT: deferred Extremities exam: PRESENT: full ROM, joint swelling - Right ankle, slight warmth noted. ABSENT: calf tenderness, clubbing Neurological exam: PRESENT: alert, awake, oriented to person, oriented to place , oriented to time, oriented to situation. ABSENT: motor sensory deficit Psychiatric exam: PRESENT: appropriate affect, normal mood. ABSENT: homicidal ideation, suicidal ideation Skin exam: PRESENT: dry, intact, warm. ABSENT: cyanosis, rash. Results Laboratory Results: 10/09/16 05:16 10/09/16 05:16 10/08/16 10/09/16 10/09/16 05:41 05:16 05:16 WBC 11.8 H RBC 3.33 L Hgb 8.4 L Hct 25.3 L MCV 76 L MCH 25.2 L MCHC 33.3 RDW 19.5 H Plt Count 504 H Seg Neutrophils % 79.7 H Lymphocytes % 6.1 L Monocytes % 12.5 Eosinophils % 1.3 Basophils % 0.4 Absolute Neutrophils 9.4 H Absolute Lymphocytes 0.7 Absolute Monocytes 1.5 H Absolute Eosinophils 0.2 Absolute Basophils 0.0 Sodium 135.8 L Potassium 3.9 Chloride 106 Carbon Dioxide 19 L Anion Gap 11 BUN 16 Creatinine 1.24 Est GFR ( Amer) 49 L Est GFR (Non-Af Amer) 41 L Glucose 45 L Calcium 6.9 L* Transferrin 70 L Albumin 10/09/16 05:16 WBC RBC Hgb Hct MCV MCH MCHC RDW Plt Count Seg Neutrophils % Lymphocytes % Monocytes % Eosinophils % Basophils % Absolute Neutrophils Absolute Lymphocytes Absolute Monocytes Absolute Eosinophils Absolute Basophils Sodium Potassium Chloride Carbon Dioxide Anion Gap BUN Creatinine Est GFR ( Amer) Est GFR (Non-Af Amer) Glucose Calcium Transferrin Albumin 1.6 L Impressions: Chest X-Ray 10/05/16 15:14 IMPRESSION: No acute abnormality in the chest. Head CT 10/05/16 15:14 IMPRESSION: CHRONIC CHANGES OF ATROPHY AND MICROVASCULAR ISCHEMIA. NO ACUTE PROCESS. Ankle X-Ray 10/05/16 15:29 IMPRESSION: Interval ORIF ankle fracture dislocation. No evidence of postoperative complication. Head CTA 10/06/16 00:00 IMPRESSION: NO CTA EVIDENCE OF STENOSIS OR ANEURYSM OF THE [place]. Carotid Doppler Study 10/06/16 11:41 IMPRESSION: No flow significant stenosis at the right carotid bifurcation. 50 to 69% diameter stenosis left proximal ICA at the carotid bifurcation based on velocity criteria Fluoroscopy 10/08/16 00:00 IMPRESSION: IMAGE(S) OBTAINED DURING PROCEDURE. Foot X-Ray 02/09/17 00:00 IMPRESSION: IMAGE(S) OBTAINED DURING PROCEDURE. Assessment & Plan - Diagnosis (1) Bimalleolar fracture of right ankle Qualifiers: Encounter type: subsequent encounter Fracture type: closed Fracture healing: with routine healing Qualified Code(s): S82.841D - Displaced bimalleolar fracture of right lower leg, subsequent encounter for closed fracture with routine healing Is this a current diagnosis for this admission?: YesPlan: Status post repair. The patient is to go to the OR today with Dr. Easley for debridement. (2) Staphylococcus aureus bacteremia Is this a current diagnosis for this admission?: YesPlan: Will transition antibiotic coverage to Ancef. Will repeat blood cultures and follow. (3) Sepsis Qualifiers: Sepsis type: sepsis due to unspecified organism Qualified Code(s): A41.9 - Sepsis, unspecified organism Is this a current diagnosis for this admission?: YesPlan: Gram-positive cocci bacteremia. The patient is not requiring pressors. (4) Generalized weakness Is this a current diagnosis for this admission?: Yes (5) TIA (transient ischemic attack) Qualifiers: Transient cerebral ischemia type: unspecified Qualified Code(s): G45.9 - Transient cerebral ischemic attack, unspecified Is this a current diagnosis for this admission?: YesPlan: CTA is negative (6) Hypertension Qualifiers: Hypertension type: essential hypertension Qualified Code(s): I10 - Essential (primary) hypertension Is this a current diagnosis for this admission?: YesPlan: Will continue home medications. (7) Acute blood loss anemia Is this a current diagnosis for this admission?: Yes (8) Diastolic CHF Qualifiers: Congestive heart failure chronicity: chronic Qualified Code(s): I50.32 - Chronic diastolic (congestive) heart failure Is this a current diagnosis for this admission?: YesPlan: The patient appears optivolemic - Time Time Spent with patient: 25-34 minutes Medications reviewed and adjusted accordingly: Yes
[2016-10-09] MEDS: CEFAZOLIN SODIUM 1 GM in DEXTROSE 5%-WATER 50 ML IV SCH (17:39)
[2016-10-09] MEDS: LACTOBACILLUS ACIDOPHILUS 250 MG TAB PO SCH (17:40)
[2016-10-09] MEDS: ATORVASTATIN CALCIUM 80 MG TABLET PO SCH (22:12)
[2016-10-10] MEDS: HEPARIN SOD (PORCINE) 5,000 UNIT/ML 1 ML SYRINGE SUBCUT SCH ×3 (05:44→22:00)
[2016-10-10] MEDS: CEFAZOLIN SODIUM 1 GM in DEXTROSE 5%-WATER 50 ML IV SCH ×2 (05:44→17:54)
[2016-10-10 05:47] LABS: HEMATOCRIT 25.6 % (36.0-47.0); HEMOGLOBIN 8.6 g/dL (12.0-15.5); HGB HCT DIFFERENCE 0.2; MEAN CORPUSCULAR HEMOGLOBIN 25.5 pg (27.0-33.4); MEAN CORPUSCULAR HGB CONC 33.5 g/dL (32.0-36.0); MEAN CORPUSCULAR VOLUME 76 fl (80-97); RED BLOOD COUNT 3.37 10^6/uL (3.72-5.28); RED CELL DISTRIBUTION WIDTH 19.7 % (11.5-14.0); WHITE BLOOD COUNT 9.7 10^3/uL (4.0-10.5)
[2016-10-10 06:08] LABS: ALBUMIN 2.2 g/dL (3.5-5.0); ANION GAP 9 (5-19); BLOOD UREA NITROGEN 16 mg/dL (7-20); CALCIUM 7.6 mg/dL (8.4-10.2); CARBON DIOXIDE 21 mmol/L (22-30); CHLORIDE 106 mmol/L (98-107); CREATININE RESULT 1.08 mg/dL (0.52-1.25); GLUCOSE 51 mg/dL (75-110); MAGNESIUM 1.7 mg/dL (1.6-2.3); SODIUM 135.9 mmol/L (137-145)
--- NOTE | 2016-10-10 07:39 | PDOC PROGRESS REPORT ---
Subjective Progress Note for:: 10/10/16 Subjective:: Patient reports a restless night with shooting pains the top of her right foot Physical Exam Vital Signs: Temp Pulse Resp BP Pulse Ox 36.6 C 59 L 20 157/67 H 97 10/10/16 03:45 10/10/16 03:45 10/10/16 03:45 10/10/16 03:45 10/10/16 03:45 Intake & Output 10/09/16 10/10/16 10/11/16 06:59 06:59 06:59 Intake Total 5403 705 Output Total 2020 Balance 3383 705 Weight 57.8 kg 57 kg General appearance: PRESENT: no acute distress Head exam: PRESENT: normocephalic Respiratory exam: PRESENT: unlabored Pulses: PRESENT: +1 pedal pulses bilateral Vascular exam: PRESENT: normal capillary refill GI/Abdominal exam: PRESENT: soft Extremities exam: PRESENT: other - Right lower extremity dressing clean dry and intact. Motor function to the great toe intact. This brisk capillary refill. Sensory examination is intact to light touch. Dressing does not feel tense suggesting to me that the pressure and provided is appropriate Neurological exam: PRESENT: alert Results Laboratory Results: 10/10/16 05:19 10/10/16 05:19 10/08/16 10/09/16 10/10/16 05:41 05:16 05:19 WBC RBC Hgb Hct MCV MCH MCHC RDW Plt Count Sodium 135.9 L Potassium 4.0 Chloride 106 Carbon Dioxide 21 L Anion Gap 9 BUN 16 Creatinine 1.08 Est GFR ( Amer) 58 L Est GFR (Non-Af Amer) 48 L Glucose 51 L Calcium 7.6 L Magnesium 1.7 Transferrin 70 L Albumin 1.6 L 2.2 L 10/10/16 05:19 WBC 9.7 RBC 3.37 L Hgb 8.6 L Hct 25.6 L MCV 76 L MCH 25.5 L MCHC 33.5 RDW 19.7 H Plt Count 487 H Sodium Potassium Chloride Carbon Dioxide Anion Gap BUN Creatinine Est GFR ( Amer) Est GFR (Non-Af Amer) Glucose Calcium Magnesium Transferrin Albumin Impressions: Chest X-Ray 10/05/16 15:14 IMPRESSION: No acute abnormality in the chest. Head CT 10/05/16 15:14 IMPRESSION: CHRONIC CHANGES OF ATROPHY AND MICROVASCULAR ISCHEMIA. NO ACUTE PROCESS. Ankle X-Ray 10/05/16 15:29 IMPRESSION: Interval ORIF ankle fracture dislocation. No evidence of postoperative complication. Head CTA 10/06/16 00:00 IMPRESSION: NO CTA EVIDENCE OF STENOSIS OR ANEURYSM OF THE [place]. Carotid Doppler Study 10/06/16 11:41 IMPRESSION: No flow significant stenosis at the right carotid bifurcation. 50 to 69% diameter stenosis left proximal ICA at the carotid bifurcation based on velocity criteria Fluoroscopy 10/08/16 00:00 IMPRESSION: IMAGE(S) OBTAINED DURING PROCEDURE. Foot X-Ray 10/08/16 00:00 IMPRESSION: IMAGE(S) OBTAINED DURING PROCEDURE. Status: Imported from PACS Assessment & Plan - Diagnosis (1) Bimalleolar fracture of right ankle Qualifiers: Encounter type: subsequent encounter Fracture type: closed Fracture healing: with routine healing Qualified Code(s): S82.841D - Displaced bimalleolar fracture of right lower leg, subsequent encounter for closed fracture with routine healing Is this a current diagnosis for this admission?: YesPlan: Status post IND for surgical site infection following ORIF of a right bimalleolar ankle fracture. Overall, the patient has remained afebrile. She did get up with physical therapy yesterday. Plan will be for continued mobilization with physical therapy. We'll take down the splint on Wednesday and replaced with a Cam Walker, which the family will bring him from home. - Time Time Spent with patient: 15-24 minutes
[2016-10-10] MEDS: ACETAMINOPHEN 325 MG TABLET PO PRN (08:13)
[2016-10-10] MEDS: METOPROLOL SUCCINATE 50 MG TAB.SR.24H PO SCH (08:13)
[2016-10-10] MEDS: ASPIRIN 325 MG TABLET PO SCH (08:13)
[2016-10-10] MEDS: LACTOBACILLUS ACIDOPHILUS 250 MG TAB PO SCH ×2 (08:14→17:53)
[2016-10-10] MEDS: DOCUSATE SODIUM 100 MG CAPSULE PO SCH ×2 (08:14→17:45)
--- NOTE | 2016-10-10 14:30 | PDOC PROGRESS REPORT ---
Subjective Progress Note for:: 10/10/16 Subjective:: The patient is currently lying in bed. The patient has not are her breakfast yet. The patient states her ankle has improved since it open this morning since her procedure . The patient denies any nausea, vomiting, diarrhea , shortness of breath, dizziness, chest pain, heart palpitations, fevers, or chills. The patient has remained afebrile. Blood pressures have been in a good range. The patient voices no other concerns at this time. Daughters present at the bedside and active in the patient's care. Review of systems: The rest of the review of systems is negative. Physical Exam Vital Signs: Temp Pulse Resp BP Pulse Ox 97.5 F 62 16 154/63 H 96 10/10/16 07:54 10/10/16 07:54 10/10/16 07:54 10/10/16 07:54 10/10/16 07:54 Intake & Output 10/08/16 10/09/16 10/10/16 23:59 23:59 23:59 Intake Total 5430 1433 50 Output Total 2020 Balance 3410 1433 50 Weight 55 kg 57.8 kg 57 kg General appearance: PRESENT: no acute distress, cooperative, well-developed, well-nourished Head exam: PRESENT: atraumatic, normocephalic. Eye exam: PRESENT: conjunctiva pink, EOMI, PERRLA - Sluggish, other - Facial droop. ABSENT: scleral icterus Ear exam: PRESENT: normal external ear exam Mouth exam: PRESENT: moist, tongue midline Neck exam: ABSENT: carotid bruit, JVD, lymphadenopathy, thyromegaly Respiratory exam: PRESENT: clear to auscultation arely. ABSENT: rales, rhonchi, wheezes Cardiovascular exam: PRESENT: RRR. ABSENT: diastolic murmur, rubs, systolic murmur Pulses: PRESENT: normal dorsalis pedis pul Vascular exam: PRESENT: normal capillary refill GI/Abdominal exam: PRESENT: normal bowel sounds, soft. ABSENT: distended, guarding, mass, organolmegaly, rebound, tenderness Rectal exam: PRESENT: deferred Extremities exam: PRESENT: RLE wrapped in Kerlix dressing. ABSENT: calf tenderness, clubbing Neurological exam: PRESENT: alert, awake, oriented to person, oriented to place , oriented to time, oriented to situation. ABSENT: motor sensory deficit Psychiatric exam: PRESENT: appropriate affect, normal mood. ABSENT: homicidal ideation, suicidal ideation Skin exam: PRESENT: dry, intact, warm. ABSENT: cyanosis, rash. Results Laboratory Results: 10/10/16 05:19 10/10/16 05:19 10/08/16 10/09/16 10/10/16 05:41 05:16 05:19 WBC RBC Hgb Hct MCV MCH MCHC RDW Plt Count Sodium 135.9 L Potassium 4.0 Chloride 106 Carbon Dioxide 21 L Anion Gap 9 BUN 16 Creatinine 1.08 Est GFR ( Amer) 58 L Est GFR (Non-Af Amer) 48 L Glucose 51 L Calcium 7.6 L Magnesium 1.7 Transferrin 70 L Albumin 1.6 L 2.2 L 10/10/16 05:19 WBC 9.7 RBC 3.37 L Hgb 8.6 L Hct 25.6 L MCV 76 L MCH 25.5 L MCHC 33.5 RDW 19.7 H Plt Count 487 H Sodium Potassium Chloride Carbon Dioxide Anion Gap BUN Creatinine Est GFR ( Amer) Est GFR (Non-Af Amer) Glucose Calcium Magnesium Transferrin Albumin Impressions: Chest X-Ray 10/05/16 15:14 IMPRESSION: No acute abnormality in the chest. Head CT 10/05/16 15:14 IMPRESSION: CHRONIC CHANGES OF ATROPHY AND MICROVASCULAR ISCHEMIA. NO ACUTE PROCESS. Ankle X-Ray 10/05/16 15:29 IMPRESSION: Interval ORIF ankle fracture dislocation. No evidence of postoperative complication. Head CTA 10/06/16 00:00 IMPRESSION: NO CTA EVIDENCE OF STENOSIS OR ANEURYSM OF THE [place]. Carotid Doppler Study 10/06/16 11:41 IMPRESSION: No flow significant stenosis at the right carotid bifurcation. 50 to 69% diameter stenosis left proximal ICA at the carotid bifurcation based on velocity criteria Fluoroscopy 10/08/16 00:00 IMPRESSION: IMAGE(S) OBTAINED DURING PROCEDURE. Foot X-Ray 10/08/16 00:00 IMPRESSION: IMAGE(S) OBTAINED DURING PROCEDURE. Assessment & Plan - Diagnosis (1) Bimalleolar fracture of right ankle Qualifiers: Encounter type: subsequent encounter Fracture type: closed Fracture healing: with routine healing Qualified Code(s): S82.841D - Displaced bimalleolar fracture of right lower leg, subsequent encounter for closed fracture with routine healing Is this a current diagnosis for this admission?: YesPlan: Status post repair. Post-op day #2. The patient went to the OR with Dr. Easley for debridement. (2) Staphylococcus aureus bacteremia Is this a current diagnosis for this admission?: YesPlan: Transitioned antibiotic coverage to Ancef. Repeat cultures are negative (3) Sepsis Qualifiers: Sepsis type: sepsis due to unspecified organism Qualified Code(s): A41.9 - Sepsis, unspecified organism Is this a current diagnosis for this admission?: YesPlan: Improving. The patient is not requiring pressors. (4) Generalized weakness Is this a current diagnosis for this admission?: Yes (5) TIA (transient ischemic attack) Qualifiers: Transient cerebral ischemia type: unspecified Qualified Code(s): G45.9 - Transient cerebral ischemic attack, unspecified Is this a current diagnosis for this admission?: YesPlan: CTA is negative (6) Hypertension Qualifiers: Hypertension type: essential hypertension Qualified Code(s): I10 - Essential (primary) hypertension Is this a current diagnosis for this admission?: YesPlan: Will continue home medications. (7) Acute blood loss anemia Is this a current diagnosis for this admission?: Yes (8) Diastolic CHF Qualifiers: Congestive heart failure chronicity: chronic Qualified Code(s): I50.32 - Chronic diastolic (congestive) heart failure Is this a current diagnosis for this admission?: YesPlan: The patient appears optivolemic - Time Time Spent with patient: 25-34 minutes Medications reviewed and adjusted accordingly: Yes Anticipated discharge: Home with Homehealth
[2016-10-10] MEDS: ATORVASTATIN CALCIUM 80 MG TABLET PO SCH (22:00)
[2016-10-11] MEDS: CEFAZOLIN SODIUM 1 GM in DEXTROSE 5%-WATER 50 ML IV SCH ×2 (06:16→18:26)
[2016-10-11] MEDS: HEPARIN SOD (PORCINE) 5,000 UNIT/ML 1 ML SYRINGE SUBCUT SCH ×3 (06:17→22:51)
[2016-10-11] MEDS: ASPIRIN 325 MG TABLET PO SCH (08:39)
[2016-10-11] MEDS: METOPROLOL SUCCINATE 50 MG TAB.SR.24H PO SCH (08:39)
[2016-10-11] MEDS: LACTOBACILLUS ACIDOPHILUS 250 MG TAB PO SCH ×2 (08:40→18:26)
[2016-10-11] MEDS: KETOROLAC TROMETHAMINE INJ/PF 30 MG/1 ML SDV IV PRN (08:40)
[2016-10-11] MEDS: DOCUSATE SODIUM 100 MG CAPSULE PO SCH ×2 (08:41→18:26)
--- NOTE | 2016-10-11 11:26 | PDOC PROGRESS REPORT ---
Subjective Progress Note for:: 10/11/16 Subjective:: The patient is currently lying in bed. The patient states her ankle has improved since it open this morning since her procedure . The patient denies any nausea, vomiting, diarrhea, shortness of breath, dizziness, chest pain, heart palpitations, fevers, or chills. The patient has remained afebrile. Blood pressures have been in a good range. The patient voices no other concerns at this time. Daughters present at the bedside and active in the patient's care. The patient has had a limited appetite. I discussed the risk and benefits associated with appetite stimulation and the family would like to proceed with Megace. They are aware of the cardiac risk factors. Review of systems: The rest of the review of systems is negative. Physical Exam Vital Signs: Temp Pulse Resp BP Pulse Ox 98.4 F 63 16 153/60 H 97 10/11/16 07:50 10/11/16 07:50 10/11/16 07:50 10/11/16 07:50 10/11/16 07:50 Intake & Output 10/09/16 10/10/16 10/11/16 23:59 23:59 23:59 Intake Total 1433 400 20 Balance 1433 400 20 Weight 57.8 kg 57 kg General appearance: PRESENT: no acute distress, cooperative, well-developed, well-nourished Head exam: PRESENT: atraumatic, normocephalic. Eye exam: PRESENT: conjunctiva pink, EOMI, PERRLA - Sluggish, other - Facial droop. ABSENT: scleral icterus Ear exam: PRESENT: normal external ear exam Mouth exam: PRESENT: moist, tongue midline Neck exam: ABSENT: carotid bruit, JVD, lymphadenopathy, thyromegaly Respiratory exam: PRESENT: clear to auscultation arely. ABSENT: rales, rhonchi, wheezes Cardiovascular exam: PRESENT: RRR. ABSENT: diastolic murmur, rubs, systolic murmur Pulses: PRESENT: normal dorsalis pedis pul Vascular exam: PRESENT: normal capillary refill GI/Abdominal exam: PRESENT: normal bowel sounds, soft. ABSENT: distended, guarding, mass, organolmegaly, rebound, tenderness Rectal exam: PRESENT: deferred Extremities exam: PRESENT: RLE wrapped in Kerlix dressing. ABSENT: calf tenderness, clubbing Neurological exam: PRESENT: alert, awake, oriented to person, oriented to place , oriented to time, oriented to situation. ABSENT: motor sensory deficit Psychiatric exam: PRESENT: appropriate affect, normal mood. ABSENT: homicidal ideation, suicidal ideation Skin exam: PRESENT: dry, intact, warm. ABSENT: cyanosis, rash. Results Laboratory Results: 10/10/16 05:19 10/10/16 05:19 10/08/16 16:57 Ankle - Abscess Gram Stain - Final 10/08/16 06:45 Ankle - Right Side Abscess Gram Stain - Final 10/08/16 06:45 Ankle - Right Side Abscess Wound Culture - Final Staphylococcus Aureus Impressions: Chest X-Ray 10/05/16 15:14 IMPRESSION: No acute abnormality in the chest. Head CT 10/05/16 15:14 IMPRESSION: CHRONIC CHANGES OF ATROPHY AND MICROVASCULAR ISCHEMIA. NO ACUTE PROCESS. Ankle X-Ray 10/05/16 15:29 IMPRESSION: Interval ORIF ankle fracture dislocation. No evidence of postoperative complication. Head CTA 10/06/16 00:00 IMPRESSION: NO CTA EVIDENCE OF STENOSIS OR ANEURYSM OF THE [place]. Carotid Doppler Study 10/06/16 11:41 IMPRESSION: No flow significant stenosis at the right carotid bifurcation. 50 to 69% diameter stenosis left proximal ICA at the carotid bifurcation based on velocity criteria Fluoroscopy 10/08/16 00:00 IMPRESSION: IMAGE(S) OBTAINED DURING PROCEDURE. Foot X-Ray 10/08/16 00:00 IMPRESSION: IMAGE(S) OBTAINED DURING PROCEDURE. Assessment & Plan - Diagnosis (1) Bimalleolar fracture of right ankle Qualifiers: Encounter type: subsequent encounter Fracture type: closed Fracture healing: with routine healing Qualified Code(s): S82.841D - Displaced bimalleolar fracture of right lower leg, subsequent encounter for closed fracture with routine healing Is this a current diagnosis for this admission?: YesPlan: Status post repair. Post-op day #3. The patient went to the OR with Dr. Easley for debridement. (2) Staphylococcus aureus bacteremia Is this a current diagnosis for this admission?: YesPlan: Transitioned antibiotic coverage to Ancef. Repeat cultures are negative (3) Sepsis Qualifiers: Sepsis type: sepsis due to unspecified organism Qualified Code(s): A41.9 - Sepsis, unspecified organism Is this a current diagnosis for this admission?: YesPlan: Resolved (4) Generalized weakness Is this a current diagnosis for this admission?: Yes (5) TIA (transient ischemic attack) Qualifiers: Transient cerebral ischemia type: unspecified Qualified Code(s): G45.9 - Transient cerebral ischemic attack, unspecified Is this a current diagnosis for this admission?: YesPlan: CTA is negative (6) Hypertension Qualifiers: Hypertension type: essential hypertension Qualified Code(s): I10 - Essential (primary) hypertension Is this a current diagnosis for this admission?: YesPlan: Will continue home medications. (7) Acute blood loss anemia Is this a current diagnosis for this admission?: YesPlan: Status post transfusion secondary to surgical losses. (8) Diastolic CHF Qualifiers: Congestive heart failure chronicity: chronic Qualified Code(s): I50.32 - Chronic diastolic (congestive) heart failure Is this a current diagnosis for this admission?: YesPlan: The patient appears optivolemic - Time Time Spent with patient: 25-34 minutes Medications reviewed and adjusted accordingly: Yes Anticipated discharge: Home with Homehealth, SNF Within: within 24 hours, within 48 hours
[2016-10-11] MEDS: MEGESTROL ACETATE SUSP 400 MG/10 ML UDCUP PO SCH (18:26)
[2016-10-11] MEDS: ATORVASTATIN CALCIUM 80 MG TABLET PO SCH (22:51)
[2016-10-12] MEDS: KETOROLAC TROMETHAMINE INJ/PF 30 MG/1 ML SDV IV PRN ×2 (04:20→18:54)
[2016-10-12] MEDS: HEPARIN SOD (PORCINE) 5,000 UNIT/ML 1 ML SYRINGE SUBCUT SCH ×2 (05:06→21:35)
[2016-10-12] MEDS: CEFAZOLIN SODIUM 1 GM in DEXTROSE 5%-WATER 50 ML IV SCH ×2 (05:06→17:31)
[2016-10-12 06:11] LABS: HEMATOCRIT 23.7 % (36.0-47.0); HGB HCT DIFFERENCE -0.3; MEAN CORPUSCULAR HEMOGLOBIN 25.3 pg (27.0-33.4); MEAN CORPUSCULAR HGB CONC 33.1 g/dL (32.0-36.0); MEAN CORPUSCULAR VOLUME 76 fl (80-97); RED CELL DISTRIBUTION WIDTH 20.3 % (11.5-14.0); WHITE BLOOD COUNT 6.2 10^3/uL (4.0-10.5)
[2016-10-12 06:19] LABS: HEMOGLOBIN 7.8 g/dL (12.0-15.5)
[2016-10-12 07:56] LABS: ANION GAP 6 (5-19); BLOOD UREA NITROGEN 9 mg/dL (7-20); CALCIUM 7.8 mg/dL (8.4-10.2); CARBON DIOXIDE 23 mmol/L (22-30); CHLORIDE 108 mmol/L (98-107); CREATININE RESULT 0.71 mg/dL (0.52-1.25); GLUCOSE 73 mg/dL (75-110); POTASSIUM 3.9 mmol/L (3.6-5.0); SODIUM 137.2 mmol/L (137-145)
[2016-10-12] MEDS: MEGESTROL ACETATE SUSP 400 MG/10 ML UDCUP PO SCH (09:56)
[2016-10-12] MEDS: LACTOBACILLUS ACIDOPHILUS 250 MG TAB PO SCH ×2 (09:57→17:33)
[2016-10-12] MEDS: ASPIRIN 325 MG TABLET PO SCH (09:57)
[2016-10-12] MEDS: METOPROLOL SUCCINATE 50 MG TAB.SR.24H PO SCH (09:57)
[2016-10-12] MEDS: DOCUSATE SODIUM 100 MG CAPSULE PO SCH ×2 (09:58→17:34)
--- NOTE | 2016-10-12 13:04 | PDOC PROGRESS REPORT ---
Subjective Progress Note for:: 10/12/16 Subjective:: The patient is currently lying in bed. The patient states her ankle has improved since it open this morning since her procedure . The patient does admit to pain especially when the medication wears off. The patient still was not having a decent amount of oral intake. No reported episodes of vomiting. The patient states her diarrhea has resolved. The patient has remained afebrile. Blood pressures have been in a good range. The patient voices no other concerns at this time. Daughter present at the bedside and active in the patient's care. Review of systems: The rest of the review of systems is negative. Physical Exam Vital Signs: Temp Pulse Resp BP Pulse Ox 98.3 F 62 19 166/70 H 94 10/12/16 07:42 10/12/16 07:42 10/12/16 07:42 10/12/16 07:42 10/12/16 07:42 Intake & Output 10/10/16 10/11/16 10/12/16 23:59 23:59 23:59 Intake Total 400 370 55 Balance 400 370 55 Weight 57 kg General appearance: PRESENT: no acute distress, cooperative, well-developed, well-nourished Head exam: PRESENT: atraumatic, normocephalic. Eye exam: PRESENT: conjunctiva pink, EOMI, PERRLA - Sluggish, other - Facial droop. ABSENT: scleral icterus Ear exam: PRESENT: normal external ear exam Mouth exam: PRESENT: moist, tongue midline Neck exam: ABSENT: carotid bruit, JVD, lymphadenopathy, thyromegaly Respiratory exam: PRESENT: clear to auscultation arely. ABSENT: rales, rhonchi, wheezes Cardiovascular exam: PRESENT: RRR. ABSENT: diastolic murmur, rubs, systolic murmur Pulses: PRESENT: normal dorsalis pedis pul Vascular exam: PRESENT: normal capillary refill GI/Abdominal exam: PRESENT: normal bowel sounds, soft. ABSENT: distended, guarding, mass, organolmegaly, rebound, tenderness Rectal exam: PRESENT: deferred Extremities exam: PRESENT: RLE wrapped in Kerlix dressing. ABSENT: calf tenderness, clubbing Neurological exam: PRESENT: alert, awake, oriented to person, oriented to place , oriented to time, oriented to situation. ABSENT: motor sensory deficit Psychiatric exam: PRESENT: appropriate affect, normal mood. ABSENT: homicidal ideation, suicidal ideation Skin exam: PRESENT: dry, intact, warm. ABSENT: cyanosis, rash. Results Laboratory Results: 10/12/16 05:42 10/12/16 07:24 10/12/16 10/12/16 10/12/16 05:42 05:48 07:24 WBC 6.2 RBC 3.10 L Hgb 7.8 L Hct 23.7 L MCV 76 L MCH 25.3 L MCHC 33.1 RDW 20.3 H Plt Count 458 H Sodium Cancelled 137.2 Potassium Cancelled 3.9 Chloride Cancelled 108 H Carbon Dioxide Cancelled 23 Anion Gap Cancelled 6 BUN Cancelled 9 Creatinine Cancelled 0.71 Est GFR ( Amer) Cancelled > 60 Est GFR (Non-Af Amer) Cancelled > 60 Glucose Cancelled 73 L Calcium Cancelled 7.8 L Impressions: Chest X-Ray 10/05/16 15:14 IMPRESSION: No acute abnormality in the chest. Head CT 10/05/16 15:14 IMPRESSION: CHRONIC CHANGES OF ATROPHY AND MICROVASCULAR ISCHEMIA. NO ACUTE PROCESS. Ankle X-Ray 10/05/16 15:29 IMPRESSION: Interval ORIF ankle fracture dislocation. No evidence of postoperative complication. Head CTA 10/06/16 00:00 IMPRESSION: NO CTA EVIDENCE OF STENOSIS OR ANEURYSM OF THE [place]. Carotid Doppler Study 10/06/16 11:41 IMPRESSION: No flow significant stenosis at the right carotid bifurcation. 50 to 69% diameter stenosis left proximal ICA at the carotid bifurcation based on velocity criteria Fluoroscopy 10/08/16 00:00 IMPRESSION: IMAGE(S) OBTAINED DURING PROCEDURE. Foot X-Ray 10/08/16 00:00 IMPRESSION: IMAGE(S) OBTAINED DURING PROCEDURE. Assessment & Plan - Diagnosis (1) Bimalleolar fracture of right ankle Qualifiers: Encounter type: subsequent encounter Fracture type: closed Fracture healing: with routine healing Qualified Code(s): S82.841D - Displaced bimalleolar fracture of right lower leg, subsequent encounter for closed fracture with routine healing Is this a current diagnosis for this admission?: YesPlan: Status post repair. The patient went to the OR with Dr. Easley for debridement. (2) Staphylococcus aureus bacteremia Is this a current diagnosis for this admission?: YesPlan: Transitioned antibiotic coverage to Ancef. Repeat cultures are negative (3) Sepsis Qualifiers: Sepsis type: sepsis due to unspecified organism Qualified Code(s): A41.9 - Sepsis, unspecified organism Is this a current diagnosis for this admission?: YesPlan: Resolved (4) Generalized weakness Is this a current diagnosis for this admission?: Yes (5) TIA (transient ischemic attack) Qualifiers: Transient cerebral ischemia type: unspecified Qualified Code(s): G45.9 - Transient cerebral ischemic attack, unspecified Is this a current diagnosis for this admission?: YesPlan: CTA is negative (6) Hypertension Qualifiers: Hypertension type: essential hypertension Qualified Code(s): I10 - Essential (primary) hypertension Is this a current diagnosis for this admission?: YesPlan: Will continue home medications. (7) Acute blood loss anemia Is this a current diagnosis for this admission?: YesPlan: Status post transfusion secondary to surgical losses. Do feel the patient most likely has underlying iron deficiency anemia from poor by mouth intake. The patient will continue with oral iron supplements. Will repeat CBC in the a.m. and follow. (8) Diastolic CHF Qualifiers: Congestive heart failure chronicity: chronic Qualified Code(s): I50.32 - Chronic diastolic (congestive) heart failure Is this a current diagnosis for this admission?: YesPlan: The patient appears optivolemic - Time Time Spent with patient: 25-34 minutes Medications reviewed and adjusted accordingly: Yes Anticipated discharge: Home with Homehealth Within: within 24 hours, within 48 hours Disposition: The patient is a full code. Pending patient's symptomatology and diagnostic findings will reevaluate in the a.m.
[2016-10-12] MEDS: FERROUS SULFATE LIQUID 300 MG/5 ML UDC PO SCH (17:33)
[2016-10-12] MEDS: ACETAMINOPHEN 325 MG TABLET PO SCH ×2 (17:33→23:46)
[2016-10-12] MEDS: ATORVASTATIN CALCIUM 80 MG TABLET PO SCH (21:35)
[2016-10-13] MEDS: CEFAZOLIN SODIUM 1 GM in DEXTROSE 5%-WATER 50 ML IV SCH ×2 (05:16→17:20)
[2016-10-13] MEDS: ACETAMINOPHEN 325 MG TABLET PO SCH ×4 (05:16→23:04)
[2016-10-13 06:09] LABS: HEMATOCRIT 28.4 % (36.0-47.0); HEMOGLOBIN 9.5 g/dL (12.0-15.5); HGB HCT DIFFERENCE 0.1; MEAN CORPUSCULAR HGB CONC 33.5 g/dL (32.0-36.0); MEAN CORPUSCULAR VOLUME 75 fl (80-97); RED CELL DISTRIBUTION WIDTH 20.3 % (11.5-14.0); WHITE BLOOD COUNT 7.6 10^3/uL (4.0-10.5)
[2016-10-13 06:31] LABS: ANION GAP 5 (5-19); BLOOD UREA NITROGEN 7 mg/dL (7-20); CALCIUM 8.4 mg/dL (8.4-10.2); CARBON DIOXIDE 24 mmol/L (22-30); CHLORIDE 109 mmol/L (98-107); CREATININE RESULT 0.67 mg/dL (0.52-1.25); GLUCOSE 80 mg/dL (75-110); POTASSIUM 4.2 mmol/L (3.6-5.0); SODIUM 137.7 mmol/L (137-145)
--- NOTE | 2016-10-13 06:46 | PDOC PROGRESS REPORT ---
Subjective Progress Note for:: 10/13/16 Subjective:: Patient comfortable overnight Physical Exam Vital Signs: Temp Pulse Resp BP Pulse Ox 36.6 C 53 L 18 166/65 H 99 10/12/16 23:39 10/13/16 02:00 10/12/16 23:39 10/12/16 23:39 10/12/16 23:39 Intake & Output 10/11/16 10/12/16 10/13/16 06:59 06:59 06:59 Intake Total 370 405 728 Output Total 2 Balance 370 405 726 Weight 54.4 kg General appearance: PRESENT: no acute distress Head exam: PRESENT: normocephalic Respiratory exam: PRESENT: unlabored Pulses: PRESENT: +1 pedal pulses bilateral Vascular exam: PRESENT: normal capillary refill Extremities exam: PRESENT: other - Right lower extremity dressing change yesterday. Wound edges are well approximated. Minimal drainage. Minimal erythema. Minimal tenderness. Brisk capillary refill. Results Laboratory Results: 10/13/16 05:38 10/13/16 05:38 10/12/16 10/13/16 10/13/16 07:24 05:38 05:38 WBC 7.6 RBC 3.80 Hgb 9.5 L Hct 28.4 L MCV 75 L MCH 25.0 L MCHC 33.5 RDW 20.3 H Plt Count 506 H Sodium 137.2 137.7 Potassium 3.9 4.2 Chloride 108 H 109 H Carbon Dioxide 23 24 Anion Gap 6 5 BUN 9 7 Creatinine 0.71 0.67 Est GFR ( Amer) > 60 > 60 Est GFR (Non-Af Amer) > 60 > 60 Glucose 73 L 80 Calcium 7.8 L 8.4 Impressions: Chest X-Ray 10/05/16 15:14 IMPRESSION: No acute abnormality in the chest. Head CT 10/05/16 15:14 IMPRESSION: CHRONIC CHANGES OF ATROPHY AND MICROVASCULAR ISCHEMIA. NO ACUTE PROCESS. Ankle X-Ray 10/05/16 15:29 IMPRESSION: Interval ORIF ankle fracture dislocation. No evidence of postoperative complication. Head CTA 10/06/16 00:00 IMPRESSION: NO CTA EVIDENCE OF STENOSIS OR ANEURYSM OF THE [place]. Carotid Doppler Study 10/06/16 11:41 IMPRESSION: No flow significant stenosis at the right carotid bifurcation. 50 to 69% diameter stenosis left proximal ICA at the carotid bifurcation based on velocity criteria Fluoroscopy 10/08/16 00:00 IMPRESSION: IMAGE(S) OBTAINED DURING PROCEDURE. Foot X-Ray 10/08/16 00:00 IMPRESSION: IMAGE(S) OBTAINED DURING PROCEDURE. Assessment & Plan - Diagnosis (1) Bimalleolar fracture of right ankle Qualifiers: Encounter type: subsequent encounter Fracture type: closed Fracture healing: with routine healing Qualified Code(s): S82.841D - Displaced bimalleolar fracture of right lower leg, subsequent encounter for closed fracture with routine healing Is this a current diagnosis for this admission?: YesPlan: Plan is to mobilize with physical therapy on a restricted weightbearing basis for the right lower extremity - Time Time Spent with patient: 15-24 minutes Anticipated discharge: SNF Within: within 48 hours
[2016-10-13] MEDS: KETOROLAC TROMETHAMINE INJ/PF 30 MG/1 ML SDV IV PRN (08:31)
--- NOTE | 2016-10-13 09:33 | PDOC PROGRESS REPORT ---
Subjective Progress Note for:: 10/13/16 Subjective:: Patient seen on morning rounds. She is resting in bed her daughter is at her bedside assisting her with eating breakfast. She denies any shortness of breath , cough or dyspnea. She denies any chest pain or dizziness. She continues to have mild left sided facial droop. She denies any of pain in right ankle and calf at the present time. Right ankle wrapped in surgical dressing. She denies nausea, vomiting, abdominal pain, dark stools or diarrhea. She voices no other complaints. Physical Exam Vital Signs: Temp Pulse Resp BP Pulse Ox 97.7 F 50 L 18 164/65 H 99 10/13/16 07:21 10/13/16 07:21 10/13/16 07:21 10/13/16 07:21 10/13/16 07:21 Intake & Output 10/12/16 10/13/16 10/14/16 06:59 06:59 06:59 Intake Total 405 728 Output Total 2 Balance 405 726 Weight 54.4 kg General appearance: PRESENT: no acute distress, hard of hearing, thin, well- developed Head exam: PRESENT: atraumatic, normocephalic Eye exam: PRESENT: conjunctiva pink, EOMI, PERRLA. ABSENT: scleral icterus Ear exam: PRESENT: normal external ear exam Mouth exam: PRESENT: moist, tongue midline Neck exam: ABSENT: carotid bruit, JVD, lymphadenopathy, thyromegaly Respiratory exam: PRESENT: clear to auscultation arely. ABSENT: rales, rhonchi, wheezes Cardiovascular exam: PRESENT: RRR. ABSENT: diastolic murmur, rubs, systolic murmur Pulses: PRESENT: normal dorsalis pedis pul Vascular exam: PRESENT: normal capillary refill GI/Abdominal exam: PRESENT: normal bowel sounds, soft. ABSENT: distended, guarding, mass, organolmegaly, rebound, tenderness Rectal exam: PRESENT: deferred Extremities exam: PRESENT: calf tenderness - right to palpation near surgical wound of the right ankle Musculoskeletal exam: PRESENT: full ROM Neurological exam: PRESENT: alert, awake, oriented to person, CN II-XII grossly intact Psychiatric exam: PRESENT: appropriate affect, normal mood. ABSENT: homicidal ideation, suicidal ideation Skin exam: PRESENT: dry, intact, warm. ABSENT: cyanosis, rash Results Laboratory Results: 10/13/16 05:38 10/13/16 05:38 10/13/16 10/13/16 05:38 05:38 WBC 7.6 RBC 3.80 Hgb 9.5 L Hct 28.4 L MCV 75 L MCH 25.0 L MCHC 33.5 RDW 20.3 H Plt Count 506 H Sodium 137.7 Potassium 4.2 Chloride 109 H Carbon Dioxide 24 Anion Gap 5 BUN 7 Creatinine 0.67 Est GFR ( Amer) > 60 Est GFR (Non-Af Amer) > 60 Glucose 80 Calcium 8.4 Impressions: Chest X-Ray 10/05/16 15:14 IMPRESSION: No acute abnormality in the chest. Head CT 10/05/16 15:14 IMPRESSION: CHRONIC CHANGES OF ATROPHY AND MICROVASCULAR ISCHEMIA. NO ACUTE PROCESS. Ankle X-Ray 10/05/16 15:29 IMPRESSION: Interval ORIF ankle fracture dislocation. No evidence of postoperative complication. Head CTA 10/06/16 00:00 IMPRESSION: NO CTA EVIDENCE OF STENOSIS OR ANEURYSM OF THE [place]. Carotid Doppler Study 10/06/16 11:41 IMPRESSION: No flow significant stenosis at the right carotid bifurcation. 50 to 69% diameter stenosis left proximal ICA at the carotid bifurcation based on velocity criteria Fluoroscopy 10/08/16 00:00 IMPRESSION: IMAGE(S) OBTAINED DURING PROCEDURE. Foot X-Ray 10/08/16 00:00 IMPRESSION: IMAGE(S) OBTAINED DURING PROCEDURE. Assessment & Plan - Diagnosis (1) Bimalleolar fracture of right ankle Qualifiers: Encounter type: subsequent encounter Fracture type: closed Fracture healing: with delayed healing Qualified Code(s): S82.841G - Displaced bimalleolar fracture of right lower leg, subsequent encounter for closed fracture with delayed healing Is this a current diagnosis for this admission?: YesPlan: Patient underwent debridement of right ankle wound with debridement and wash out by Dr Easley on 10/09. Blood cultures now negative x 72 hrs (2) Acute blood loss anemia Is this a current diagnosis for this admission?: YesPlan: Hgb up to 9.5 today. She has chronic iron defiency anemia (3) Generalized weakness Is this a current diagnosis for this admission?: YesPlan: Patient has had multiple falls at home prior to admission. Lives with family and has a walker. She is deconditioned and anemic with borderline left internal artery stenosis. CTA of the head was negative. Will have PT resume treatment today (4) Hypertension Qualifiers: Hypertension type: essential hypertension Qualified Code(s): I10 - Essential (primary) hypertension Is this a current diagnosis for this admission?: YesPlan: Presently normotensive on current medications (5) TIA (transient ischemic attack) Qualifiers: Transient cerebral ischemia type: unspecified Qualified Code(s): G45.9 - Transient cerebral ischemic attack, unspecified Is this a current diagnosis for this admission?: YesPlan: Left sided facial droop improved according to daughter. Moderate left internal carotid artery stenosis. CTA of the head no significant findings (6) Staphylococcus aureus bacteremia Is this a current diagnosis for this admission?: YesPlan: Patient with blood cultures x 2 initially growing staph aureus. She is on ancef at the present time - Time Time Spent with patient: 25-34 minutes Critical Time spent with patient: 15-24 minutes Medications reviewed and adjusted accordingly: Yes Anticipated discharge: Home with Homehealth
[2016-10-13] MEDS: ASPIRIN 325 MG TABLET PO SCH (11:14)
[2016-10-13] MEDS: FERROUS SULFATE LIQUID 300 MG/5 ML UDC PO SCH ×3 (11:14→17:22)
[2016-10-13] MEDS: MEGESTROL ACETATE SUSP 400 MG/10 ML UDCUP PO SCH (11:14)
[2016-10-13] MEDS: DOCUSATE SODIUM 100 MG CAPSULE PO SCH ×2 (11:16→17:22)
[2016-10-13] MEDS: LACTOBACILLUS ACIDOPHILUS 250 MG TAB PO SCH ×2 (11:16→17:21)
[2016-10-13] MEDS: METOPROLOL SUCCINATE 50 MG TAB.SR.24H PO SCH (11:16)
[2016-10-13] MEDS: HEPARIN SOD (PORCINE) 5,000 UNIT/ML 1 ML SYRINGE SUBCUT SCH ×2 (11:17→21:56)
[2016-10-13] MEDS: ATORVASTATIN CALCIUM 80 MG TABLET PO SCH (22:21)
[2016-10-14] MEDS: KETOROLAC TROMETHAMINE INJ/PF 30 MG/1 ML SDV IV PRN (03:27)
[2016-10-14] MEDS: ACETAMINOPHEN 325 MG TABLET PO SCH ×3 (05:13→17:56)
[2016-10-14] MEDS: CEFAZOLIN SODIUM 1 GM in DEXTROSE 5%-WATER 50 ML IV SCH ×2 (05:13→17:55)
--- NOTE | 2016-10-14 06:50 | PDOC PROGRESS REPORT ---
Subjective Progress Note for:: 10/14/16 Subjective:: Patient without any new complaints this morning Physical Exam Vital Signs: Temp Pulse Resp BP Pulse Ox 36.8 C 56 L 18 168/61 H 100 10/14/16 00:00 10/14/16 02:00 10/14/16 00:00 10/14/16 00:00 10/14/16 00:00 Intake & Output 10/12/16 10/13/16 10/14/16 06:59 06:59 06:59 Intake Total 405 728 824 Output Total 2 Balance 405 726 824 Weight 54.4 kg 54.7 kg General appearance: PRESENT: no acute distress Extremities exam: PRESENT: other - Right lower extremity remains clean dry and intact Results Laboratory Results: 10/13/16 05:38 10/13/16 05:38 10/13/16 23:15 Stool Occult Blood POSITIVE Impressions: Chest X-Ray 10/05/16 15:14 IMPRESSION: No acute abnormality in the chest. Head CT 10/05/16 15:14 IMPRESSION: CHRONIC CHANGES OF ATROPHY AND MICROVASCULAR ISCHEMIA. NO ACUTE PROCESS. Ankle X-Ray 10/05/16 15:29 IMPRESSION: Interval ORIF ankle fracture dislocation. No evidence of postoperative complication. Head CTA 10/06/16 00:00 IMPRESSION: NO CTA EVIDENCE OF STENOSIS OR ANEURYSM OF THE [place] OF [place]. Carotid Doppler Study 10/06/16 11:41 IMPRESSION: No flow significant stenosis at the right carotid bifurcation. 50 to 69% diameter stenosis left proximal ICA at the carotid bifurcation based on velocity criteria Fluoroscopy 10/08/16 00:00 IMPRESSION: IMAGE(S) OBTAINED DURING PROCEDURE. Foot X-Ray 10/08/16 00:00 IMPRESSION: IMAGE(S) OBTAINED DURING PROCEDURE. Assessment & Plan - Diagnosis (1) Bimalleolar fracture of right ankle Qualifiers: Encounter type: subsequent encounter Fracture type: closed Fracture healing: with delayed healing Qualified Code(s): S82.841G - Displaced bimalleolar fracture of right lower leg, subsequent encounter for closed fracture with delayed healing Is this a current diagnosis for this admission?: YesPlan: Patient remains afebrile and with minimal discomfort. Progress with physical therapy is slow. [facility]ticipate [facility] to [facility]. Duration of antibiotic administration will be left to the hospitalist service - Time Time Spent with patient: 15-24 minutes Anticipated discharge: SNF Within: Other
[2016-10-14] MEDS: HEPARIN SOD (PORCINE) 5,000 UNIT/ML 1 ML SYRINGE SUBCUT SCH ×2 (10:18→22:00)
[2016-10-14] MEDS: LACTOBACILLUS ACIDOPHILUS 250 MG TAB PO SCH ×2 (10:19→17:56)
[2016-10-14] MEDS: MEGESTROL ACETATE SUSP 400 MG/10 ML UDCUP PO SCH (10:19)
[2016-10-14] MEDS: ASPIRIN 325 MG TABLET PO SCH (10:19)
[2016-10-14] MEDS: METOPROLOL SUCCINATE 50 MG TAB.SR.24H PO SCH (10:19)
[2016-10-14] MEDS: DOCUSATE SODIUM 100 MG CAPSULE PO SCH ×2 (10:21→17:57)
--- NOTE | 2016-10-14 12:57 | PDOC PROGRESS REPORT ---
Addendum entered and electronically signed by EHSAN FUNG NP 10/14/16 13:06: Assessment & Plan - Diagnosis (1) Bimalleolar fracture of right ankle Qualifiers: Encounter type: subsequent encounter Fracture type: closed Fracture healing: with delayed healing Qualified Code(s): S82.841G - Displaced bimalleolar fracture of right lower leg, subsequent encounter for closed fracture with delayed healing Is this a current diagnosis for this admission?: YesPlan: Patient underwent debridement of right ankle wound with debridement and wash out by Dr Easley on 10/09. Blood cultures now negative x 72 hrs (2) Acute blood loss anemia Is this a current diagnosis for this admission?: YesPlan: Hgb up to 9.5 today. She has chronic iron defiency anemia (3) Generalized weakness Is this a current diagnosis for this admission?: YesPlan: Patient has had multiple falls at home prior to admission. Lives with family and has a walker. She is deconditioned and anemic with borderline left internal artery stenosis. CTA of the head was negative. Will have PT resume treatment today (4) Hypertension Qualifiers: Hypertension type: essential hypertension Qualified Code(s): I10 - Essential (primary) hypertension Is this a current diagnosis for this admission?: YesPlan: Presently normotensive on current medications (5) TIA (transient ischemic attack) Qualifiers: Transient cerebral ischemia type: unspecified Qualified Code(s): G45.9 - Transient cerebral ischemic attack, unspecified Is this a current diagnosis for this admission?: YesPlan: Left sided facial droop improved according to daughter. Moderate left internal carotid artery stenosis. CTA of the head no significant findings (6) Staphylococcus aureus bacteremia Is this a current diagnosis for this admission?: YesPlan: Patient with blood cultures x 2 initially growing staph aureus. She is on ancef at the present time Discussed the case with Dr Felicita Patel Infectious Disease. She feels patient will need a minimum of 6 weeks of IV antibiotics. Discussed the plan and need for PICC line with patient's daughter Britt and are in agreement to proceed. Family is now considering possibility of rehab placement - Time Critical Time spent with patient: 25-34 minutes Medications reviewed and adjusted accordingly: Yes Anticipated discharge: Home with Homehealth, Acute Rehab Original Note: Subjective Progress Note for:: 10/14/16 Subjective:: Patient seen on morning rounds. She is resting in bed her daughter is at her bedside assisting her with eating breakfast. She denies any shortness of breath , cough or dyspnea. She denies any chest pain or dizziness. She continues to have mild left sided facial droop. She denies any of pain in right ankle and calf at the present time. Right ankle wrapped in surgical dressing. She denies nausea, vomiting, abdominal pain, dark stools or diarrhea. She voices no other complaints. Physical Exam Vital Signs: Temp Pulse Resp BP Pulse Ox 97.8 F 53 L 16 160/65 H 100 10/14/16 07:44 10/14/16 07:44 10/14/16 07:44 10/14/16 07:44 10/14/16 07:44 Intake & Output 10/13/16 10/14/16 10/15/16 06:59 06:59 06:59 Intake Total 728 824 Output Total 2 Balance 726 824 Weight 54.4 kg 54.7 kg General appearance: PRESENT: no acute distress, well-developed, well-nourished Head exam: PRESENT: atraumatic, normocephalic Eye exam: PRESENT: conjunctiva pink, EOMI, PERRLA. ABSENT: scleral icterus Ear exam: PRESENT: normal external ear exam Mouth exam: PRESENT: moist, tongue midline Neck exam: ABSENT: carotid bruit, JVD, lymphadenopathy, thyromegaly Respiratory exam: PRESENT: clear to auscultation arely. ABSENT: rales, rhonchi, wheezes Cardiovascular exam: PRESENT: RRR. ABSENT: diastolic murmur, rubs, systolic murmur Pulses: PRESENT: normal dorsalis pedis pul Vascular exam: PRESENT: normal capillary refill GI/Abdominal exam: PRESENT: normal bowel sounds, soft. ABSENT: distended, guarding, mass, organolmegaly, rebound, tenderness Rectal exam: PRESENT: deferred Extremities exam: PRESENT: full ROM. ABSENT: calf tenderness, clubbing, pedal edema Neurological exam: PRESENT: alert, awake, oriented to person, oriented to place , oriented to time, oriented to situation, CN II-XII grossly intact. ABSENT: motor sensory deficit Psychiatric exam: PRESENT: appropriate affect, normal mood. ABSENT: homicidal ideation, suicidal ideation Skin exam: PRESENT: dry, intact, warm. ABSENT: cyanosis, rash Results Laboratory Results: 10/13/16 05:38 10/13/16 05:38 10/13/16 23:15 Stool Occult Blood POSITIVE 10/09/16 11:30 Blood Blood Culture - Final NO GROWTH IN 5 DAYS Impressions: Chest X-Ray 10/05/16 15:14 IMPRESSION: No acute abnormality in the chest. Head CT 10/05/16 15:14 IMPRESSION: CHRONIC CHANGES OF ATROPHY AND MICROVASCULAR ISCHEMIA. NO ACUTE PROCESS. Ankle X-Ray 10/05/16 15:29 IMPRESSION: Interval ORIF ankle fracture dislocation. No evidence of postoperative complication. Head CTA 10/06/16 00:00 IMPRESSION: NO CTA EVIDENCE OF STENOSIS OR ANEURYSM OF THE [place] OF [place]. Carotid Doppler Study 10/06/16 11:41 IMPRESSION: No flow significant stenosis at the right carotid bifurcation. 50 to 69% diameter stenosis left proximal ICA at the carotid bifurcation based on velocity criteria Fluoroscopy 10/08/16 00:00 IMPRESSION: IMAGE(S) OBTAINED DURING PROCEDURE. Foot X-Ray 10/08/16 00:00 IMPRESSION: IMAGE(S) OBTAINED DURING PROCEDURE. Assessment & Plan - Diagnosis (1) Bimalleolar fracture of right ankle Qualifiers: Encounter type: subsequent encounter Fracture type: closed Fracture healing: with delayed healing Qualified Code(s): S82.841G - Displaced bimalleolar fracture of right lower leg, subsequent encounter for closed fracture with delayed healing Is this a current diagnosis for this admission?: YesPlan: Patient underwent debridement of right ankle wound with debridement and wash out by Dr Easley on 10/09. Blood cultures now negative x 72 hrs (2) Acute blood loss anemia Is this a current diagnosis for this admission?: YesPlan: Hgb up to 9.5 today. She has chronic iron defiency anemia (3) Generalized weakness Is this a current diagnosis for this admission?: YesPlan: Patient has had multiple falls at home prior to admission. Lives with family and has a walker. She is deconditioned and anemic with borderline left internal artery stenosis. CTA of the head was negative. Will have PT resume treatment today (4) Hypertension Qualifiers: Hypertension type: essential hypertension Qualified Code(s): I10 - Essential (primary) hypertension Is this a current diagnosis for this admission?: YesPlan: Presently normotensive on current medications (5) TIA (transient ischemic attack) Qualifiers: Transient cerebral ischemia type: unspecified Qualified Code(s): G45.9 - Transient cerebral ischemic attack, unspecified Is this a current diagnosis for this admission?: YesPlan: Left sided facial droop improved according to daughter. Moderate left internal carotid artery stenosis. CTA of the head no significant findings (6) Staphylococcus aureus bacteremia Is this a current diagnosis for this admission?: YesPlan: Patient with blood cultures x 2 initially growing staph aureus. She is on ancef at the present time - Time Time Spent with patient: 25-34 minutes Critical Time spent with patient: 15-24 minutes Medications reviewed and adjusted accordingly: Yes Anticipated discharge: Home with Homehealth - Inpatient Certification Based on my medical assessment, after consideration of the patient's comorbidities, presenting symptoms, or acuity I expect that the services needed warrant INPATIENT care.: Yes I certify that my determination is in accordance with my understanding of Medicare's requirements for reasonable and necessary INPATIENT services [42 CFR 412.3e].: Yes Medical Necessity: Need for Pain Control, Need for IV Antibiotics, Need for Surgery
[2016-10-14] MEDS ORDERED: NORMAL SALINE 10 ML SDV (AFTER EACH USE) IV PRN (15:22)
[2016-10-14] MEDS: FERROUS SULFATE LIQUID 300 MG/5 ML UDC PO SCH (17:56)
[2016-10-14] MEDS: ATORVASTATIN CALCIUM 80 MG TABLET PO SCH (21:59)
[2016-10-14] MEDS: NORMAL SALINE 10 ML SDV (SCHEDULED) IV SCH (21:59)
[2016-10-15] MEDS: ACETAMINOPHEN 325 MG TABLET PO SCH ×5 (00:37→23:31)
[2016-10-15] MEDS ORDERED: NORMAL SALINE 250 ML IV PRN ×4 (04:24→11:19)
[2016-10-15] MEDS ORDERED: DEXTROSE 5%-WATER 250 ML with NOREPINEPHRINE BITARTRATE 4 MG IV PRN ×2 (04:29)
[2016-10-15] MEDS ORDERED: NORMAL SALINE 1000 ML 1,000 ML IV SCH (04:30)
[2016-10-15 06:21] LABS: ANION GAP 6 (5-19); BLOOD UREA NITROGEN 14 mg/dL (7-20); CALCIUM 7.8 mg/dL (8.4-10.2); CARBON DIOXIDE 22 mmol/L (22-30); CHLORIDE 107 mmol/L (98-107); CREATININE RESULT 0.84 mg/dL (0.52-1.25); GLUCOSE 74 mg/dL (75-110); POTASSIUM 4.1 mmol/L (3.6-5.0); SODIUM 135.2 mmol/L (137-145)
[2016-10-15 06:30] LABS: ABSOLUTE BASOPHILS # (AUTO) 0.1 10^3/uL (0.0-0.2); ABSOLUTE EOSINOPHILS # (AUTO) 0.2 10^3/uL (0.0-0.6); ABSOLUTE LYMPHOCYTES (AUTO) 1.9 10^3/uL (0.5-4.7); ABSOLUTE MONOCYTES (AUTO) 1.9 10^3/uL (0.1-1.4); ABSOLUTE NEUT (AUTO) 7.1 10^3/uL (1.7-8.2); BASOPHILS % (AUTO) 0.6 % (0-2); HEMATOCRIT 24.5 % (36.0-47.0); HGB HCT DIFFERENCE -0.5; LYMPHOCYTES % (AUTO) 16.6 % (13-45); MEAN CORPUSCULAR HEMOGLOBIN 24.7 pg (27.0-33.4); MEAN CORPUSCULAR HGB CONC 32.4 g/dL (32.0-36.0); MEAN CORPUSCULAR VOLUME 76 fl (80-97); MONOCYTES % (AUTO) 16.8 % (3-13); RED BLOOD COUNT 3.22 10^6/uL (3.72-5.28); RED CELL DISTRIBUTION WIDTH 20.8 % (11.5-14.0); WHITE BLOOD COUNT 11.1 10^3/uL (4.0-10.5)
--- NOTE | 2016-10-15 06:56 | PDOC PROGRESS REPORT ---
Subjective Progress Note for:: 10/15/16 Subjective:: Patient and family concerned but no new physical complaints Physical Exam Vital Signs: Temp Pulse Resp BP Pulse Ox 36.4 C 60 15 134/78 H 100 10/15/16 06:25 10/15/16 06:25 10/15/16 06:25 10/15/16 06:25 10/15/16 06:25 Intake & Output 10/13/16 10/14/16 10/15/16 06:59 06:59 06:59 Intake Total 728 824 770 Output Total 2 Balance 726 824 770 Weight 54.4 kg 54.7 kg General appearance: PRESENT: no acute distress Respiratory exam: PRESENT: unlabored Pulses: PRESENT: +1 pedal pulses bilateral Vascular exam: PRESENT: normal capillary refill Results Laboratory Results: 10/15/16 04:40 10/15/16 04:40 10/15/16 10/15/16 10/15/16 04:40 04:40 04:40 WBC 11.1 H RBC 3.22 L Hgb 8.0 L Hct 24.5 L MCV 76 L MCH 24.7 L MCHC 32.4 RDW 20.8 H Plt Count 473 H Seg Neutrophils % 64.0 Lymphocytes % 16.6 Monocytes % 16.8 H Eosinophils % 2.0 Basophils % 0.6 Absolute Neutrophils 7.1 Absolute Lymphocytes 1.9 Absolute Monocytes 1.9 H Absolute Eosinophils 0.2 Absolute Basophils 0.1 Sodium 135.2 L Potassium 4.1 Chloride 107 Carbon Dioxide 22 Anion Gap 6 BUN 14 Creatinine 0.84 Est GFR ( Amer) > 60 Est GFR (Non-Af Amer) > 60 Glucose 74 L Calcium 7.8 L Blood Type O POSITIVE Antibody Screen NEGATIVE 10/09/16 13:40 Blood Blood Culture - Final NO GROWTH IN 5 DAYS 10/09/16 11:30 Blood Blood Culture - Final NO GROWTH IN 5 DAYS Impressions: Chest X-Ray 10/05/16 15:14 IMPRESSION: No acute abnormality in the chest. Head CT 10/05/16 15:14 IMPRESSION: CHRONIC CHANGES OF ATROPHY AND MICROVASCULAR ISCHEMIA. NO ACUTE PROCESS. Ankle X-Ray 10/05/16 15:29 IMPRESSION: Interval ORIF ankle fracture dislocation. No evidence of postoperative complication. Head CTA 10/06/16 00:00 IMPRESSION: NO CTA EVIDENCE OF STENOSIS OR ANEURYSM OF THE [place]. Carotid Doppler Study 10/06/16 11:41 IMPRESSION: No flow significant stenosis at the right carotid bifurcation. 50 to 69% diameter stenosis left proximal ICA at the carotid bifurcation based on velocity criteria Fluoroscopy 10/08/16 00:00 IMPRESSION: IMAGE(S) OBTAINED DURING PROCEDURE. Foot X-Ray 10/08/16 00:00 IMPRESSION: IMAGE(S) OBTAINED DURING PROCEDURE. Guidance Fluoroscopy 10/14/16 00:00 IMPRESSION: SUCCESSFUL PLACEMENT OF A 5 FR DUAL LUMEN 37 CM PICC IN THE LEFT BRACHIAL VEIN. Interventional Vascular Procedure 10/14/16 00:00 IMPRESSION: SUCCESSFUL PLACEMENT OF A 5 FR DUAL LUMEN 37 CM PICC IN THE LEFT BRACHIAL VEIN. PICC Line Insertion 10/14/16 00:00 IMPRESSION: SUCCESSFUL PLACEMENT OF A 5 FR DUAL LUMEN 37 CM PICC IN THE LEFT BRACHIAL VEIN. Assessment & Plan - Diagnosis (1) Bimalleolar fracture of right ankle Qualifiers: Encounter type: subsequent encounter Fracture type: closed Fracture healing: with delayed healing Qualified Code(s): S82.841G - Displaced bimalleolar fracture of right lower leg, subsequent encounter for closed fracture with delayed healing Is this a current diagnosis for this admission?: YesPlan: 89-year-old black female status post open reduction internal fixation of right bimalleolar ankle fracture who presented with a surgical site infection 2 months postop. This is associated with bacteremia and febrile episodes. She underwent an I and D with hardware removal. She's remained afebrile. Since that time. Fairly there has been some bleeding per rectum with an episode of hypotension last night necessitating a transferred to the intensive care unit. She appears stable at the current time. Plan for 6 weeks of IV antibiotics per hospitalist service - Time Time Spent with patient: 15-24 minutes Anticipated discharge: SNF Within: Other
--- NOTE | 2016-10-15 08:06 | PDOC PROGRESS REPORT ---
Subjective Progress Note for:: 10/15/16 Subjective:: Overnight the patient developed substantial bright red bleeding per rectum with a 1.5 drop in hemoglobin. The patient denies any nausea, vomiting, diarrhea, shortness of breath, dizziness, chest pain, fever and chills. The patient received 2 units of packed red blood cells overnight. Although hypotensive during the episode overnight the patient is not currently hypotensive or tachycardic. The patient denies pain. Physical Exam Vital Signs: Temp Pulse Resp BP Pulse Ox 97.6 F 60 15 134/78 H 100 10/15/16 06:25 10/15/16 06:25 10/15/16 06:25 10/15/16 06:25 10/15/16 06:25 Intake & Output 10/13/16 10/14/16 10/15/16 23:59 23:59 23:59 Intake Total 684 1120 0 Balance 684 1120 0 Weight 54.4 kg 54.7 kg General appearance: PRESENT: no acute distress, cooperative, well-developed, well-nourished Head exam: PRESENT: atraumatic, normocephalic. Eye exam: PRESENT: conjunctiva pink, EOMI, PERRLA - Sluggish, other - Facial droop. ABSENT: scleral icterus Ear exam: PRESENT: normal external ear exam Mouth exam: PRESENT: moist, tongue midline Neck exam: ABSENT: carotid bruit, JVD, lymphadenopathy, thyromegaly Respiratory exam: PRESENT: clear to auscultation arely. ABSENT: rales, rhonchi, wheezes Cardiovascular exam: PRESENT: RRR. ABSENT: diastolic murmur, rubs, systolic murmur Pulses: PRESENT: normal dorsalis pedis pul Vascular exam: PRESENT: normal capillary refill GI/Abdominal exam: PRESENT: normal bowel sounds, soft. ABSENT: distended, guarding, mass, organolmegaly, rebound, tenderness Rectal exam: PRESENT: deferred Extremities exam: PRESENT: RLE wrapped in Kerlix dressing. ABSENT: calf tenderness, clubbing Neurological exam: PRESENT: alert, awake, oriented to person, oriented to place , oriented to time, oriented to situation. ABSENT: motor sensory deficit Psychiatric exam: PRESENT: appropriate affect, normal mood. ABSENT: homicidal ideation, suicidal ideation Skin exam: PRESENT: dry, intact, warm. ABSENT: cyanosis, rash. Results Laboratory Results: 10/15/16 04:40 10/15/16 04:40 10/15/16 10/15/16 10/15/16 04:40 04:40 04:40 WBC 11.1 H RBC 3.22 L Hgb 8.0 L Hct 24.5 L MCV 76 L MCH 24.7 L MCHC 32.4 RDW 20.8 H Plt Count 473 H Seg Neutrophils % 64.0 Lymphocytes % 16.6 Monocytes % 16.8 H Eosinophils % 2.0 Basophils % 0.6 Absolute Neutrophils 7.1 Absolute Lymphocytes 1.9 Absolute Monocytes 1.9 H Absolute Eosinophils 0.2 Absolute Basophils 0.1 Sodium 135.2 L Potassium 4.1 Chloride 107 Carbon Dioxide 22 Anion Gap 6 BUN 14 Creatinine 0.84 Est GFR ( Amer) > 60 Est GFR (Non-Af Amer) > 60 Glucose 74 L Calcium 7.8 L Blood Type O POSITIVE Antibody Screen NEGATIVE 10/09/16 13:40 Blood Blood Culture - Final NO GROWTH IN 5 DAYS 10/09/16 11:30 Blood Blood Culture - Final NO GROWTH IN 5 DAYS Impressions: Chest X-Ray 10/05/16 15:14 IMPRESSION: No acute abnormality in the chest. Head CT 10/05/16 15:14 IMPRESSION: CHRONIC CHANGES OF ATROPHY AND MICROVASCULAR ISCHEMIA. NO ACUTE PROCESS. Ankle X-Ray 10/05/16 15:29 IMPRESSION: Interval ORIF ankle fracture dislocation. No evidence of postoperative complication. Head CTA 10/06/16 00:00 IMPRESSION: NO CTA EVIDENCE OF STENOSIS OR ANEURYSM OF THE [place]. Carotid Doppler Study 10/06/16 11:41 IMPRESSION: No flow significant stenosis at the right carotid bifurcation. 50 to 69% diameter stenosis left proximal ICA at the carotid bifurcation based on velocity criteria Fluoroscopy 10/08/16 00:00 IMPRESSION: IMAGE(S) OBTAINED DURING PROCEDURE. Foot X-Ray 10/08/16 00:00 IMPRESSION: IMAGE(S) OBTAINED DURING PROCEDURE. Guidance Fluoroscopy 10/14/16 00:00 IMPRESSION: SUCCESSFUL PLACEMENT OF A 5 FR DUAL LUMEN 37 CM PICC IN THE LEFT BRACHIAL VEIN. Interventional Vascular Procedure 10/14/16 00:00 IMPRESSION: SUCCESSFUL PLACEMENT OF A 5 FR DUAL LUMEN 37 CM PICC IN THE LEFT BRACHIAL VEIN. PICC Line Insertion 10/14/16 00:00 IMPRESSION: SUCCESSFUL PLACEMENT OF A 5 FR DUAL LUMEN 37 CM PICC IN THE LEFT BRACHIAL VEIN. Assessment & Plan - Diagnosis (1) Acute blood loss anemia Is this a current diagnosis for this admission?: YesPlan: Status post transfusion secondary to surgical losses. Do feel the patient most likely has underlying iron deficiency anemia from poor by mouth intake. The patient will continue with oral iron supplements. Acute BRBPR overight. status post transfusion. Will consult GI/Sx for input. Will discontinue NSAIDS. (2) Hypovolemic shock Is this a current diagnosis for this admission?: YesPlan: Secondary to #1. The patient is currently only method and pressures are in a decent range at this time. Tachycardia has resolved. (3) Bimalleolar fracture of right ankle Qualifiers: Encounter type: subsequent encounter Fracture type: closed Fracture healing: with delayed healing Qualified Code(s): S82.841G - Displaced bimalleolar fracture of right lower leg, subsequent encounter for closed fracture with delayed healing Is this a current diagnosis for this admission?: YesPlan: Status post repair. The patient went to the OR with Dr. Easley for debridement. (4) Staphylococcus aureus bacteremia Is this a current diagnosis for this admission?: YesPlan: Transitioned antibiotic coverage to Ancef. Repeat cultures are negative. Is to have long-term abx as per ID recommendation. (5) Sepsis Qualifiers: Sepsis type: sepsis due to unspecified organism Qualified Code(s): A41.9 - Sepsis, unspecified organism Is this a current diagnosis for this admission?: YesPlan: Resolved (6) Generalized weakness Is this a current diagnosis for this admission?: Yes (7) TIA (transient ischemic attack) Qualifiers: Transient cerebral ischemia type: unspecified Qualified Code(s): G45.9 - Transient cerebral ischemic attack, unspecified Is this a current diagnosis for this admission?: YesPlan: CTA is negative (8) Hypertension Qualifiers: Hypertension type: essential hypertension Qualified Code(s): I10 - Essential (primary) hypertension Is this a current diagnosis for this admission?: YesPlan: Will continue home medications. (9) Diastolic CHF Qualifiers: Congestive heart failure chronicity: chronic Qualified Code(s): I50.32 - Chronic diastolic (congestive) heart failure Is this a current diagnosis for this admission?: YesPlan: The patient appears optivolemic - Time Time Spent with patient: 25-34 minutes Medications reviewed and adjusted accordingly: Yes Anticipated discharge: SNF Within: within 48 hours
[2016-10-15] MEDS: CEFAZOLIN SODIUM 1 GM in DEXTROSE 5%-WATER 50 ML IV SCH ×2 (08:27→17:22)
[2016-10-15] MEDS: MEGESTROL ACETATE SUSP 400 MG/10 ML UDCUP PO SCH (09:56)
[2016-10-15] MEDS: LACTOBACILLUS ACIDOPHILUS 250 MG TAB PO SCH ×2 (09:56→17:22)
[2016-10-15] MEDS: FERROUS SULFATE LIQUID 300 MG/5 ML UDC PO SCH ×2 (09:56→17:22)
[2016-10-15] MEDS: NORMAL SALINE 10 ML SDV (SCHEDULED) IV SCH ×2 (09:58→21:48)
[2016-10-15] MEDS: METOPROLOL SUCCINATE 50 MG TAB.SR.24H PO SCH (09:59)
[2016-10-15] MEDS: DOCUSATE SODIUM 100 MG CAPSULE PO SCH ×2 (09:59→17:22)
[2016-10-15 10:17] LABS: HEMATOCRIT 24.2 % (36.0-47.0); HGB HCT DIFFERENCE -0.2; MEAN CORPUSCULAR HEMOGLOBIN 26.2 pg (27.0-33.4); MEAN CORPUSCULAR HGB CONC 33.2 g/dL (32.0-36.0); MEAN CORPUSCULAR VOLUME 79 fl (80-97); RED BLOOD COUNT 3.07 10^6/uL (3.72-5.28); RED CELL DISTRIBUTION WIDTH 18.4 % (11.5-14.0); WHITE BLOOD COUNT 12.9 10^3/uL (4.0-10.5)
[2016-10-15] MEDS ORDERED: NOREPINEPHRINE BITARTRATE INJ/PF 4 MG/4 ML SDV IV ONE (11:08)
[2016-10-15] MEDS ORDERED: NORMAL SALINE 500 ML IV PRN (14:24)
[2016-10-15] MEDS ORDERED: PEG 3350/NA SULF,BICARB,CL/KCL 4000 ML PO PRN (14:58)
[2016-10-15 16:40] LABS: ABSOLUTE EOSINOPHILS # (AUTO) 0.1 10^3/uL (0.0-0.6); ABSOLUTE LYMPHOCYTES (AUTO) 1.8 10^3/uL (0.5-4.7); ABSOLUTE MONOCYTES (AUTO) 1.8 10^3/uL (0.1-1.4); ABSOLUTE NEUT (AUTO) 12.1 10^3/uL (1.7-8.2); BASOPHILS % (AUTO) 0.3 % (0-2); EOSINOPHILS % (AUTO) 0.6 % (0-6); HEMATOCRIT 26.9 % (36.0-47.0); HEMOGLOBIN 8.9 g/dL (12.0-15.5); HGB HCT DIFFERENCE -0.2; LYMPHOCYTES % (AUTO) 11.3 % (13-45); MEAN CORPUSCULAR HEMOGLOBIN 26.9 pg (27.0-33.4); MEAN CORPUSCULAR HGB CONC 33.1 g/dL (32.0-36.0); MEAN CORPUSCULAR VOLUME 81 fl (80-97); MONOCYTES % (AUTO) 11.3 % (3-13); RED CELL DISTRIBUTION WIDTH 17.9 % (11.5-14.0); SEGMENTED NEUTROPHILS % (AUTO) 76.5 % (42-78); WHITE BLOOD COUNT 15.9 10^3/uL (4.0-10.5)
[2016-10-15] MEDS: NORMAL SALINE 1000 ML 1,000 ML IV PRN (17:26)
[2016-10-15] MEDS ORDERED: NORMAL SALINE 1000 ML 1,000 ML IV ONE (20:14)
[2016-10-15] MEDS: ATORVASTATIN CALCIUM 80 MG TABLET PO SCH (21:48)
[2016-10-16] MEDS: NORMAL SALINE 1000 ML 1,000 ML IV PRN ×2 (01:57→11:11)
[2016-10-16] MEDS: CEFAZOLIN SODIUM 1 GM in DEXTROSE 5%-WATER 50 ML IV SCH (05:36)
[2016-10-16] MEDS: ACETAMINOPHEN 325 MG TABLET PO SCH ×3 (05:39→19:17)
[2016-10-16 06:04] LABS: HEMATOCRIT 18.1 % (36.0-47.0); HGB HCT DIFFERENCE 0.5; MEAN CORPUSCULAR HEMOGLOBIN 27.7 pg (27.0-33.4); MEAN CORPUSCULAR HGB CONC 34.1 g/dL (32.0-36.0); MEAN CORPUSCULAR VOLUME 81 fl (80-97); RED BLOOD COUNT 2.23 10^6/uL (3.72-5.28); RED CELL DISTRIBUTION WIDTH 17.8 % (11.5-14.0); WHITE BLOOD COUNT 10.7 10^3/uL (4.0-10.5)
[2016-10-16 06:29] LABS: BLOOD UREA NITROGEN 14 mg/dL (7-20); CARBON DIOXIDE 15 mmol/L (22-30); CREATININE RESULT 0.77 mg/dL (0.52-1.25); GLUCOSE 53 mg/dL (75-110); MAGNESIUM 1.3 mg/dL (1.6-2.3)
[2016-10-16 06:42] LABS: HEMOGLOBIN 6.2 g/dL (12.0-15.5)
[2016-10-16 07:00] LABS: ANION GAP 5 (5-19); CHLORIDE 121 mmol/L (98-107); POTASSIUM 3.6 mmol/L (3.6-5.0); SODIUM 140.5 mmol/L (137-145)
[2016-10-16 07:03] LABS: CALCIUM 5.4 mg/dL (8.4-10.2)
[2016-10-16] MEDS ORDERED: CALCIUM GLUCONATE 1000 MG/10 ML INJ IV ONE ×2 (08:45→20:00)
[2016-10-16] MEDS: NORMAL SALINE 10 ML SDV (SCHEDULED) IV SCH ×2 (09:11→22:30)
[2016-10-16] MEDS: FERROUS SULFATE LIQUID 300 MG/5 ML UDC PO SCH ×2 (09:11→19:17)
[2016-10-16] MEDS: MEGESTROL ACETATE SUSP 400 MG/10 ML UDCUP PO SCH (09:11)
[2016-10-16] MEDS: LACTOBACILLUS ACIDOPHILUS 250 MG TAB PO SCH ×2 (09:11→19:17)
[2016-10-16] MEDS: DOCUSATE SODIUM 100 MG CAPSULE PO SCH ×2 (09:11→17:09)
[2016-10-16] MEDS: METOPROLOL SUCCINATE 50 MG TAB.SR.24H PO SCH (09:11)
[2016-10-16] MEDS ORDERED: PROMETHAZINE HCL INJ 25 MG/1 ML VIAL ONE (10:29)
[2016-10-16] MEDS ORDERED: NALOXONE HCL INJ/PF 0.4 MG/1 ML SDV ONE (10:29)
[2016-10-16] MEDS ORDERED: DIPHENHYDRAMINE HCL 50 MG/ML VIAL ONE (10:29)
[2016-10-16] MEDS ORDERED: ONDANSETRON HCL INJ/PF 4 MG/2 ML SDV ONE (10:29)
[2016-10-16] MEDS ORDERED: GLUCAGON,HUMAN RECOMB 1 MG INJ ONE (10:30)
[2016-10-16] MEDS ORDERED: EPINEPHRINE INJ 1 MG/10 ML DISP.SYRIN ONE (10:30)
[2016-10-16] MEDS ORDERED: FENTANYL CITRATE INJ/PF 100 MCG/2 ML AMPUL ONE (10:30)
[2016-10-16] MEDS ORDERED: FLUMAZENIL INJ 0.5 MG/5 ML VIAL IV ONE (10:30)
--- NOTE | 2016-10-16 10:38 | PDOC CONSULTATION ---
Consultation Consult Date: 10/15/16 Attending physician:: LITZY TAVERAS Consult reason:: painless large volume rectal bleeding History of Present Illness Admission Date/PCP: 10/06/16 01:03 JOSEPHINE LING PA-C History of Present Illness: Patient was admitted to the ICU. She had a right ankle fracture that required surgery. She started to have rectal bleeding. She denies any associated pain. She has required several units of blood transfusion. The blood is noted to be dark in its consistency. Patient does have a previous history of colon surgery in the past. She katya has a history of colon cancer back in 1990. It is unclear if she's had any follow-up surveillance colonoscopy since then. She did have some hypotension and required blood transfusions. There is no nausea or vomiting. As noted patient denies any abdominal pain. She denies any fevers or chills. Past Medical History Cardiac Medical History: Reports: Hyperlipidema, Hypertension Denies: Coronary Artery Disease, Myocardial Infarction Pulmonary Medical History: Denies: Asthma, Bronchitis, Chronic Obstructive Pulmonary Disease (COPD), Pneumonia Neurological Medical History: Denies: Seizures GI Medical History: Reports: Gastroesophageal Reflux Disease Musculoskeltal Medical History: Reports: Arthritis - OA Psychiatric Medical History: Reports: Depression Hematology: Denies: Anemia Past Surgical History Past Surgical History: Reports: Orthopedic Surgery - Patient status post an open reduction internal fixation of right bimalleola Social History Lives with: Family Smoking Status: Never Smoker Frequency of Alcohol Use: None Hx Recreational Drug Use: No Hx Prescription Drug Abuse: No - Advance Directive Resuscitation Status: Full Code Family History Family History: DM Parental Family History Reviewed: Yes Children Family History Reviewed: Unknown Sibling(s) Family History Reviewed.: Unknown Medication/Allergy Home Medications: Alendronate Sodium [Fosamax] 70 mg PO WE@1000 10/05/16 Aspirin [Adult Low Dose Aspirin EC] 81 mg PO DAILY 10/05/16 Calcium Carbonate [Calcium] 600 mg PO DAILY 10/05/16 Fluticasone Propionate [Flonase Nasal [place] 50 Mcg/[place]lysses 16 gm] 2 sprays NAREB DAILYP PRN 10/05/16 Hydrochlorothiazide [Hydrodiuril 25 mg Tablet] 25 mg PO DAILY 10/05/16 Meloxicam [Mobic 7.5 Mg Tablet] 7.5 mg PO DAILY 10/05/16 Metoprolol Succinate 50 mg PO DAILY 10/05/16 Tramadol HCl [Ultram 50 mg Tablet] 50 mg PO TIDP PRN 10/05/16 Allergies/Adverse Reactions: No Known Allergies Allergy (Verified 09/25/16 22:04) Review of Systems Constitutional: PRESENT: weakness. ABSENT: fever(s), headache(s), night sweats Eyes: ABSENT: visual disturbances Ears: ABSENT: hearing changes Nose, Mouth, and Throat: ABSENT: mouth pain Cardiovascular: ABSENT: dyspnea on exertion, orthropnea, palpitations Respiratory: ABSENT: dyspnea, hemoptysis Gastrointestinal: PRESENT: hematochezia. ABSENT: diarrhea, dysphagia, nausea, vomiting Genitourinary: ABSENT: dysuria, hematuria Musculoskeletal: ABSENT: deformity Integumentary: ABSENT: lesions, pruritus Endocrine: ABSENT: polydipsia, polyphagia, polyuria Hematologic/Lymphatic: ABSENT: easy bruising Allergic/Immunologic: ABSENT: seasonal rhinorrhea Physical Exam Vital Signs: Temp Pulse Resp BP Pulse Ox 99.0 F 71 16 136/62 H 99 10/16/16 08:36 10/16/16 10:00 10/16/16 10:00 10/16/16 10:00 10/16/16 10:00 Intake & Output 10/15/16 10/16/16 10/17/16 06:59 06:59 06:59 Intake Total 770 5394 300 Output Total 245 25 Balance 770 5149 275 Weight 53.9 kg General appearance: PRESENT: mild distress, thin Head exam: PRESENT: atraumatic, normocephalic Eye exam: PRESENT: EOMI, PERRLA. ABSENT: nystagmus, periorbital swelling, scleral icterus Mouth exam: PRESENT: moist Throat exam: ABSENT: tonsillar exudate Neck exam: ABSENT: meningismus, tenderness Respiratory exam: PRESENT: symmetrical, unlabored. ABSENT: chest wall tenderness Cardiovascular exam: PRESENT: RRR, +S1, +S2. ABSENT: gallop, rubs GI/Abdominal exam: PRESENT: soft. ABSENT: guarding, Negro's sign, rebound, rigid, tenderness Extremities exam: ABSENT: calf tenderness, joint swelling Neurological exam: PRESENT: alert, awake, oriented to time, oriented to situation, reflexes normal, CN II-XII grossly intact Psychiatric exam: PRESENT: appropriate affect Skin exam: PRESENT: normal color. ABSENT: mottled, pallor, petechiae, urticaria , vesicles Results Laboratory Results: 10/16/16 05:39 10/16/16 05:39 10/15/16 10/15/16 10/16/16 04:40 16:25 05:39 WBC 15.9 H RBC 3.30 L Hgb 8.9 L Hct 26.9 L MCV 81 MCH 26.9 L MCHC 33.1 RDW 17.9 H Plt Count 300 Seg Neutrophils % 76.5 Lymphocytes % 11.3 L Monocytes % 11.3 Eosinophils % 0.6 Basophils % 0.3 Absolute Neutrophils 12.1 H Absolute Lymphocytes 1.8 Absolute Monocytes 1.8 H Absolute Eosinophils 0.1 Absolute Basophils 0.0 Sodium 140.5 Potassium 3.6 Chloride 121 H Carbon Dioxide 15 L Anion Gap 5 BUN 14 Creatinine 0.77 Est GFR ( Amer) > 60 Est GFR (Non-Af Amer) > 60 Glucose 53 L Calcium 5.4 L* Magnesium 1.3 L Albumin Blood Type O POSITIVE Antibody Screen NEGATIVE 10/16/16 10/16/16 05:39 05:39 WBC 10.7 H RBC 2.23 L Hgb 6.2 L D Hct 18.1 L MCV 81 MCH 27.7 MCHC 34.1 RDW 17.8 H Plt Count 215 Seg Neutrophils % Lymphocytes % Monocytes % Eosinophils % Basophils % Absolute Neutrophils Absolute Lymphocytes Absolute Monocytes Absolute Eosinophils Absolute Basophils Sodium Potassium Chloride Carbon Dioxide Anion Gap BUN Creatinine Est GFR ( Amer) Est GFR (Non-Af Amer) Glucose Calcium Magnesium Albumin 1.2 L Blood Type Antibody Screen Impressions: Chest X-Ray 10/05/16 15:14 IMPRESSION: No acute abnormality in the chest. Head CT 10/05/16 15:14 IMPRESSION: CHRONIC CHANGES OF ATROPHY AND MICROVASCULAR ISCHEMIA. NO ACUTE PROCESS. Ankle X-Ray 10/05/16 15:29 IMPRESSION: Interval ORIF ankle fracture dislocation. No evidence of postoperative complication. Head CTA 10/06/16 00:00 IMPRESSION: NO CTA EVIDENCE OF STENOSIS OR ANEURYSM OF THE [place]. Carotid Doppler Study 10/06/16 11:41 IMPRESSION: No flow significant stenosis at the right carotid bifurcation. 50 to 69% diameter stenosis left proximal ICA at the carotid bifurcation based on velocity criteria Fluoroscopy 10/08/16 00:00 IMPRESSION: IMAGE(S) OBTAINED DURING PROCEDURE. Foot X-Ray 10/08/16 00:00 IMPRESSION: IMAGE(S) OBTAINED DURING PROCEDURE. Guidance Fluoroscopy 10/14/16 00:00 IMPRESSION: SUCCESSFUL PLACEMENT OF A 5 FR DUAL LUMEN 37 CM PICC IN THE LEFT BRACHIAL VEIN. Interventional Vascular Procedure 10/14/16 00:00 IMPRESSION: SUCCESSFUL PLACEMENT OF A 5 FR DUAL LUMEN 37 CM PICC IN THE LEFT BRACHIAL VEIN. PICC Line Insertion 10/14/16 00:00 IMPRESSION: SUCCESSFUL PLACEMENT OF A 5 FR DUAL LUMEN 37 CM PICC IN THE LEFT BRACHIAL VEIN. Assessment & Plan - Diagnosis (1) Acute blood loss anemia Is this a current diagnosis for this admission?: YesPlan: Large volume painless bleeding requiring blood transfusions. She'll need a colonoscopy. Differential to include possible diverticular bleeding versus bleeding from possible anastomotic site given that she said previous surgery in the past. If negative may need upper endoscopy. Risks benefits alternatives of the procedure including risks of bleeding, perforation requiring surgery I explained to the patient detail, informed consent is obtained further recommendations to follow - Time Time Spent: 50 to 70 Minutes
[2016-10-16] MEDS: MIDAZOLAM 2 MG/2 ML INJ ONE ×2 (11:32→12:00)
--- NOTE | 2016-10-16 14:44 | PDOC PROGRESS REPORT ---
Subjective Progress Note for:: 10/16/16 Subjective:: Patient seen on morning rounds. She is resting in comfortably in bed. She denies any nausea, vomiting, abdominal pain or diarrhea. She did have 2 bloody stools during the night. She denies any shortness of breath, cough or dyspnea. She denies any chest pain or dizziness. She is going to undergo an EGD and colonoscopy later this morning. Dr. English has seen the patient in consult. Patient's vitals have been stable overnight, she's been able to be weaned from the Levophed drip Physical Exam Vital Signs: Temp Pulse Resp BP Pulse Ox 97.9 F 82 16 129/66 H 99 10/16/16 12:22 10/16/16 12:30 10/16/16 12:30 10/16/16 12:30 10/16/16 12:30 Intake & Output 10/15/16 10/16/16 10/17/16 06:59 06:59 06:59 Intake Total 770 5394 1100 Output Total 245 85 Balance 770 5149 1015 Weight 53.9 kg General appearance: PRESENT: no acute distress, thin, well-developed Head exam: PRESENT: atraumatic, normocephalic Eye exam: PRESENT: conjunctiva pink, EOMI, PERRLA. ABSENT: scleral icterus Ear exam: PRESENT: normal external ear exam Mouth exam: PRESENT: moist, tongue midline Neck exam: ABSENT: carotid bruit, JVD, lymphadenopathy, thyromegaly Respiratory exam: PRESENT: clear to auscultation arely. ABSENT: rales, rhonchi, wheezes Pulses: PRESENT: normal dorsalis pedis pul Vascular exam: PRESENT: normal capillary refill GI/Abdominal exam: PRESENT: normal bowel sounds, soft. ABSENT: distended, guarding, mass, organolmegaly, rebound, tenderness Rectal exam: PRESENT: deferred Extremities exam: PRESENT: full ROM. ABSENT: calf tenderness, clubbing, pedal edema Musculoskeletal exam: PRESENT: full ROM, tenderness - right ankle incision Neurological exam: PRESENT: alert, awake, oriented to person, oriented to place , oriented to time, oriented to situation, CN II-XII grossly intact. ABSENT: motor sensory deficit Psychiatric exam: PRESENT: appropriate affect, normal mood. ABSENT: homicidal ideation, suicidal ideation Skin exam: PRESENT: dry, intact, warm. ABSENT: cyanosis, rash Results Laboratory Results: 10/16/16 05:39 10/16/16 05:39 10/15/16 10/15/16 10/16/16 04:40 16:25 05:39 WBC 15.9 H RBC 3.30 L Hgb 8.9 L Hct 26.9 L MCV 81 MCH 26.9 L MCHC 33.1 RDW 17.9 H Plt Count 300 Seg Neutrophils % 76.5 Lymphocytes % 11.3 L Monocytes % 11.3 Eosinophils % 0.6 Basophils % 0.3 Absolute Neutrophils 12.1 H Absolute Lymphocytes 1.8 Absolute Monocytes 1.8 H Absolute Eosinophils 0.1 Absolute Basophils 0.0 Sodium 140.5 Potassium 3.6 Chloride 121 H Carbon Dioxide 15 L Anion Gap 5 BUN 14 Creatinine 0.77 Est GFR ( Amer) > 60 Est GFR (Non-Af Amer) > 60 Glucose 53 L Calcium 5.4 L* Magnesium 1.3 L Albumin Blood Type O POSITIVE Antibody Screen NEGATIVE 10/16/16 10/16/16 05:39 05:39 WBC 10.7 H RBC 2.23 L Hgb 6.2 L D Hct 18.1 L MCV 81 MCH 27.7 MCHC 34.1 RDW 17.8 H Plt Count 215 Seg Neutrophils % Lymphocytes % Monocytes % Eosinophils % Basophils % Absolute Neutrophils Absolute Lymphocytes Absolute Monocytes Absolute Eosinophils Absolute Basophils Sodium Potassium Chloride Carbon Dioxide Anion Gap BUN Creatinine Est GFR ( Amer) Est GFR (Non-Af Amer) Glucose Calcium Magnesium Albumin 1.2 L Blood Type Antibody Screen Impressions: Chest X-Ray 10/05/16 15:14 IMPRESSION: No acute abnormality in the chest. Head CT 10/05/16 15:14 IMPRESSION: CHRONIC CHANGES OF ATROPHY AND MICROVASCULAR ISCHEMIA. NO ACUTE PROCESS. Ankle X-Ray 10/05/16 15:29 IMPRESSION: Interval ORIF ankle fracture dislocation. No evidence of postoperative complication. Head CTA 10/06/16 00:00 IMPRESSION: NO CTA EVIDENCE OF STENOSIS OR ANEURYSM OF THE [place]. Carotid Doppler Study 10/06/16 11:41 IMPRESSION: No flow significant stenosis at the right carotid bifurcation. 50 to 69% diameter stenosis left proximal ICA at the carotid bifurcation based on velocity criteria Fluoroscopy 10/08/16 00:00 IMPRESSION: IMAGE(S) OBTAINED DURING PROCEDURE. Foot X-Ray 10/08/16 00:00 IMPRESSION: IMAGE(S) OBTAINED DURING PROCEDURE. Guidance Fluoroscopy 10/14/16 00:00 IMPRESSION: SUCCESSFUL PLACEMENT OF A 5 FR DUAL LUMEN 37 CM PICC IN THE LEFT BRACHIAL VEIN. Interventional Vascular Procedure 10/14/16 00:00 IMPRESSION: SUCCESSFUL PLACEMENT OF A 5 FR DUAL LUMEN 37 CM PICC IN THE LEFT BRACHIAL VEIN. PICC Line Insertion 10/14/16 00:00 IMPRESSION: SUCCESSFUL PLACEMENT OF A 5 FR DUAL LUMEN 37 CM PICC IN THE LEFT BRACHIAL VEIN. Assessment & Plan - Diagnosis (1) Bimalleolar fracture of right ankle Qualifiers: Encounter type: subsequent encounter Fracture type: closed Fracture healing: with delayed healing Qualified Code(s): S82.841G - Displaced bimalleolar fracture of right lower leg, subsequent encounter for closed fracture with delayed healing Is this a current diagnosis for this admission?: YesPlan: Patient underwent debridement and hardware removal of right ankle wound with wash out by Dr Easley on 10/09. Blood cultures now negative x 72 hrs. [address]ICC line in place will need 6 weeks of antibiotic therapy (2) Acute blood loss anemia Is this a current diagnosis for this admission?: YesPlan: Hgb 6.2 this am. She is in the process of receiving 2 more units of PRBCs (3) Generalized weakness Is this a current diagnosis for this admission?: YesPlan: Patient has had multiple falls at home prior to admission. Lives with family and has a walker. She is deconditioned and anemic with borderline left internal carotid artery stenosis. CTA of the head was negative. PT was treating up until GI bleed (4) Hypertension Qualifiers: Hypertension type: essential hypertension Qualified Code(s): I10 - Essential (primary) hypertension Is this a current diagnosis for this admission?: YesPlan: Presently normotensive (5) TIA (transient ischemic attack) Qualifiers: Transient cerebral ischemia type: unspecified Qualified Code(s): G45.9 - Transient cerebral ischemic attack, unspecified Is this a current diagnosis for this admission?: YesPlan: Left sided facial droop improved according to daughter. Moderate left internal carotid artery stenosis. CTA of the head no significant findings (6) Staphylococcus aureus bacteremia Is this a current diagnosis for this admission?: Yes (7) Hypovolemic shock Is this a current diagnosis for this admission?: YesPlan: Secondary to lower GI bleeding. She is now normotensive off pressors after transfusion of total of 4 units PRBCs. She had 2 bloody stools overnight (8) Diastolic CHF Qualifiers: Congestive heart failure chronicity: chronic Qualified Code(s): I50.32 - Chronic diastolic (congestive) heart failure Is this a current diagnosis for this admission?: YesPlan: Patient is presently euvolemic - Time Time Spent with patient: 25-34 minutes Critical Time spent with patient: 15-24 minutes Medications reviewed and adjusted accordingly: Yes
[2016-10-16 15:12] LABS: ABSOLUTE EOSINOPHILS # (AUTO) 0.2 10^3/uL (0.0-0.6); ABSOLUTE LYMPHOCYTES (AUTO) 0.9 10^3/uL (0.5-4.7); ABSOLUTE MONOCYTES (AUTO) 0.6 10^3/uL (0.1-1.4); ABSOLUTE NEUT (AUTO) 6.9 10^3/uL (1.7-8.2); BASOPHILS % (AUTO) 0.3 % (0-2); EOSINOPHILS % (AUTO) 2.6 % (0-6); HEMATOCRIT 31.5 % (36.0-47.0); HGB HCT DIFFERENCE 0.3; LYMPHOCYTES % (AUTO) 10.3 % (13-45); MEAN CORPUSCULAR HEMOGLOBIN 27.3 pg (27.0-33.4); MEAN CORPUSCULAR HGB CONC 33.5 g/dL (32.0-36.0); MEAN CORPUSCULAR VOLUME 81 fl (80-97); RED BLOOD COUNT 3.87 10^6/uL (3.72-5.28); RED CELL DISTRIBUTION WIDTH 15.7 % (11.5-14.0); SEGMENTED NEUTROPHILS % (AUTO) 79.8 % (42-78); WHITE BLOOD COUNT 8.7 10^3/uL (4.0-10.5)
[2016-10-16 15:15] LABS: PROTHROMBIN TIME 16.7 SEC (11.4-15.4)
[2016-10-16 15:16] LABS: PARTIAL THROMBOPLASTIN TIME 42.4 SEC (23.5-35.8)
[2016-10-16 15:19] LABS: HEMOGLOBIN 10.6 g/dL (12.0-15.5)
--- NOTE | 2016-10-16 16:40 | Operative Report ---
Operative Report DATE OF SURGERY: 10/16/16 Operative Report: The risks, benefits and alternatives of the procedure including risks of bleeding, perforation requiring surgery are explained to the patient in detail and informed consent is obtained. Procedures performed in the ICU setting. Patient is placed in a left lateral decubital position. Timeout is called. Conscious sedation medications are provided. A rectal examination was done which did not reveal any masses, tears or fissures. An Olympus video scope was inserted the patient's rectum. The scope was inserted and gradually advanced all the way to the anastomosis. Patient appears to have had a right hemicolectomy. I did see some small diverticula orifices in the sigmoid area. There is some old blood that's throughout the colon. Irrigation was used to clean out the entire colon starting at the anastomotic site. No active bleeding is noted. Patient does have some hemorrhoids. Around the area of the anastomosis did does appear to be small several punctate areas of small ulceration Apsey is obtained. The scope was then sequentially pulled back via the various segments of the colon including the transverse colon, splenic flexure, descending colon and finally into the rectosigmoid colon. Retroflexion maneuvers performed. Following this the patient's stretcher was turned around and EGD performed.The risks benefits and alternatives of the procedure explained to the patient in detail and informed consent is obtained that GIF Olympus video scope was inserted into the patient's mouth and hypopharynx the esophagus is identified intubated and insufflated the scope was then advanced through the esophagus stomach and duodenum retroflexion maneuver is done the esophagus stomach and first and second portions of the duodenum examined PREOPERATIVE DIAGNOSIS: GI bleeding POSTOPERATIVE DIAGNOSIS: No further active bleed noted. Diverticulosis noted. Negative upper endoscopy OPERATION: Colonoscopy with biopsy. EGD with biopsy SURGEON: LITZY TAVERAS ANESTHESIA: Moderate Sedation - 2 mg of Versed given for the entire procedure. Conscious sedation monitoring time 30 minutes TISSUE REMOVED OR ALTERED: Specimens obtained rule out ischemic colitis, pseudomembranous colitis. COMPLICATIONS: None. ESTIMATED BLOOD LOSS: 50 INTRAOPERATIVE FINDINGS: As described above. PROCEDURE: Patient tolerated the procedures well. Family updated. Spoke to the attending physician. If further rebleed consider bleeding scan. Continue transfusion as needed Transferred out of the ICU if all else is stable
[2016-10-16] MEDS ORDERED: DEXTROSE 50%-WATER 25 GM/50 ML DISP.SYRIN IV PRN (19:09)
[2016-10-16] MEDS ORDERED: GLUCAGON,HUMAN RECOMB 1 MG INJ IM PRN (19:09)
[2016-10-16] MEDS ORDERED: DEXTROSE 40% GEL 15 GM TUBE PO PRN ×2 (19:09)
[2016-10-16] MEDS ORDERED: POTASSI CL 20 MEQ/50 ML RIDER 20 MEQ/50 ML RTUPB IV ONE (20:00)
[2016-10-16] MEDS: MAGNESIUM SULFATE/D5W 1 GM/100 ML RTUPB IV SCH ×3 (20:37→22:28)
[2016-10-16] MEDS: ATORVASTATIN CALCIUM 80 MG TABLET PO SCH (22:29)
[2016-10-16 22:30] LABS: HGB HCT DIFFERENCE -0.4; MEAN CORPUSCULAR HEMOGLOBIN 26.6 pg (27.0-33.4); MEAN CORPUSCULAR HGB CONC 32.8 g/dL (32.0-36.0); MEAN CORPUSCULAR VOLUME 81 fl (80-97); RED BLOOD COUNT 3.09 10^6/uL (3.72-5.28); RED CELL DISTRIBUTION WIDTH 15.6 % (11.5-14.0); WHITE BLOOD COUNT 15.2 10^3/uL (4.0-10.5)
[2016-10-16 22:56] LABS: HEMOGLOBIN 8.2 g/dL (12.0-15.5)
[2016-10-17] MEDS: ACETAMINOPHEN 325 MG TABLET PO SCH ×4 (00:12→15:48)
[2016-10-17] MEDS ORDERED: NORMAL SALINE 250 ML IV PRN ×4 (01:25→08:29)
[2016-10-17] MEDS ORDERED: NORMAL SALINE 1000 ML 1,000 ML IV SCH (01:30)
[2016-10-17 01:31] LABS: BLOOD UREA NITROGEN 13 mg/dL (7-20); CARBON DIOXIDE 14 mmol/L (22-30); GLUCOSE 143 mg/dL (75-110); POTASSIUM 3.9 mmol/L (3.6-5.0)
[2016-10-17 01:42] LABS: ANION GAP 5 (5-19); CHLORIDE 119 mmol/L (98-107); SODIUM 138.1 mmol/L (137-145)
[2016-10-17 01:48] LABS: CALCIUM 6.4 mg/dL (8.4-10.2)
[2016-10-17] MEDS ORDERED: CALCIUM GLUCONATE 1000 MG/10 ML INJ IV ONE ×2 (02:09→07:30)
[2016-10-17] MEDS ORDERED: CALCIUM GLUCONATE 1,000 MG in DEXTROSE 5%-WATER 50 ML IV ONE (02:15)
[2016-10-17] MEDS: DEXTROSE 5%-1/2 NORMAL SALINE 1,000 ML IV PRN (03:09)
[2016-10-17 08:19] LABS: ABSOLUTE EOSINOPHILS # (AUTO) 0.1 10^3/uL (0.0-0.6); ABSOLUTE LYMPHOCYTES (AUTO) 0.7 10^3/uL (0.5-4.7); ABSOLUTE MONOCYTES (AUTO) 1.1 10^3/uL (0.1-1.4); ABSOLUTE NEUT (AUTO) 7.7 10^3/uL (1.7-8.2); BASOPHILS % (AUTO) 0.4 % (0-2); EOSINOPHILS % (AUTO) 0.8 % (0-6); HGB HCT DIFFERENCE 0.1; LYMPHOCYTES % (AUTO) 7.7 % (13-45); MEAN CORPUSCULAR HEMOGLOBIN 27.6 pg (27.0-33.4); MEAN CORPUSCULAR HGB CONC 33.3 g/dL (32.0-36.0); MEAN CORPUSCULAR VOLUME 83 fl (80-97); RED BLOOD COUNT 2.41 10^6/uL (3.72-5.28); RED CELL DISTRIBUTION WIDTH 15.1 % (11.5-14.0); SEGMENTED NEUTROPHILS % (AUTO) 80.1 % (42-78); WHITE BLOOD COUNT 9.6 10^3/uL (4.0-10.5)
[2016-10-17 08:22] LABS: HEMOGLOBIN 6.7 g/dL (12.0-15.5)
[2016-10-17] MEDS: DOCUSATE SODIUM 100 MG CAPSULE PO SCH ×2 (10:14→17:47)
[2016-10-17] MEDS: LACTOBACILLUS ACIDOPHILUS 250 MG TAB PO SCH ×2 (10:20→15:47)
[2016-10-17] MEDS: FERROUS SULFATE LIQUID 300 MG/5 ML UDC PO SCH ×2 (10:20→15:49)
[2016-10-17] MEDS: PANTOPRAZOLE SODIUM 40 MG VIAL IV SCH ×2 (10:21→22:47)
[2016-10-17] MEDS: METOPROLOL SUCCINATE 50 MG TAB.SR.24H PO SCH (10:22)
[2016-10-17] MEDS: NORMAL SALINE 10 ML SDV (SCHEDULED) IV SCH ×2 (10:23→22:48)
[2016-10-17] MEDS: SUCRALFATE SUSP 1 GM/10 ML UDCUP PO SCH ×3 (11:58→22:47)
--- NOTE | 2016-10-17 13:18 | PDOC CONSULTATION ---
History of Present Illness Admission Date/PCP: 10/06/16 01:03 JOSEPHINE LING PA-C History of Present Illness: Late entry. Consult was done on the evening of 10/16/2016. 89-year-old -Martiniquais female admitted on 10/05/2016 with poor by mouth intake, slurred speech and facial drooping on the left side. Also brief moments of unresponsiveness. She lives with one of her daughters in their family. In early July she fell and had a right ankle bimalleolar fracture. An ORIF was performed. The family also has concerns for possible infection of that surgical wound. During this admission, on 10/08/2016 she had an I&D and hardware removal of the right ankle due to infection. She then began having rectal bleeding. She's been transfused 7 units. She was on pressors, but hasn't been further nearly 24 hours. She had a scope done which did not reveal active bleeding. She has a history of right hemicolectomy for colon cancer. Potential sources of bleeding include the old anastomosis and diverticular bleed. She then re-bled and a bleeding scan was done which showed bleeding from the right side of the abdomen. This is interesting since she's had previous right hemicolectomy. It's unclear as to whether this is the site of the new anastomosis. Past medical history: Dementia manifest as memory deficits and occasional confusion, history of colon cancer, history of kidney cancer, multiple TIAs, hypertension, hyperlipidemia, GERD, osteoarthritis, depression, osteoporosis, chronic sinus congestion. Past surgical history: Right hemicolectomy, left nephrectomy, 2, right ankle ORIF. Subsequent I&D and removal of hardware from right ankle. Medications: See below. Allergies: No known drug allergies. Social history: No alcohol, no tobacco, no drugs. Family history: Hypertension. No family history of cancer or strokes or heart attacks. Review of systems: Somewhat limited by the patient's memory deficits, but reports leg pain. Daughter believes probable weight loss. Past Medical History Cardiac Medical History: Reports: Hyperlipidema, Hypertension Denies: Coronary Artery Disease, Myocardial Infarction Pulmonary Medical History: Denies: Asthma, Bronchitis, Chronic Obstructive Pulmonary Disease (COPD), Pneumonia Neurological Medical History: Reports: Other - Multiple TIAs Denies: Seizures Renal/ Medical History: Reports: Chronic Kidney Disease Malignancy Medical History: Reports: Colorectal Cancer, Renal (Kidney) Cancer GI Medical History: Reports: Gastroesophageal Reflux Disease Musculoskeltal Medical History: Reports: Arthritis - OA Psychiatric Medical History: Reports: Depression Past Surgical History Past Surgical History: Reports: Section - x 2, Orthopedic Surgery - Right ankle ORIF. Subsequent hardware removal/I&D., Other - Right colectomy. Left nephrectomy. Social History Information Source: Patient Lives with: Family Smoking Status: Never Smoker Frequency of Alcohol Use: None Hx Recreational Drug Use: No Hx Prescription Drug Abuse: No - Advance Directive Resuscitation Status: Full Code Family History Family History: Hypertension. denies: CVA, Malignancy Parental Family History Reviewed: Yes Children Family History Reviewed: Yes Sibling(s) Family History Reviewed.: Yes Medication/Allergy Home Medications: Alendronate Sodium [Fosamax] 70 mg PO WE@1000 10/05/16 Aspirin [Adult Low Dose Aspirin EC] 81 mg PO DAILY 10/05/16 Calcium Carbonate [Calcium] 600 mg PO DAILY 10/05/16 Fluticasone Propionate [Flonase Nasal [place] 50 Mcg/[place] 16 gm] 2 sprays NAREB DAILYP PRN 10/05/16 Hydrochlorothiazide [Hydrodiuril 25 mg Tablet] 25 mg PO DAILY 10/05/16 Meloxicam [Mobic 7.5 Mg Tablet] 7.5 mg PO DAILY 10/05/16 Metoprolol Succinate 50 mg PO DAILY 10/05/16 Tramadol HCl [Ultram 50 mg Tablet] 50 mg PO TIDP PRN 10/05/16 Allergies/Adverse Reactions: No Known Allergies Allergy (Verified 09/25/16 22:04) Review of Systems All systems: reviewed and no additional remarkable complaints except as stated Physical Exam Vital Signs: Temp Pulse Resp BP Pulse Ox 98.2 F 51 L 20 149/91 H 91 L 10/17/16 12:00 10/17/16 12:00 10/17/16 12:00 10/17/16 12:00 10/17/16 12:00 Intake & Output 10/16/16 10/17/16 10/18/16 06:59 06:59 06:59 Intake Total 5394 6091 586 Output Total 245 400 53 Balance 5149 5691 533 Weight 53.9 kg 57.5 kg General appearance: PRESENT: no acute distress, thin - Borderline cachectic Head exam: PRESENT: other - Slightly difficult to differentiate between left facial droop versus has only 4-5 teeth remaining in her mouth, all of which are on the upper left. Eye exam: PRESENT: EOMI Mouth exam: PRESENT: moist, tongue midline Teeth exam: PRESENT: poor dentation Neck exam: ABSENT: JVD, lymphadenopathy, tenderness, thyromegaly Respiratory exam: PRESENT: clear to auscultation arely Cardiovascular exam: PRESENT: other - Difficult to auscultate GI/Abdominal exam: PRESENT: soft. ABSENT: distended, tenderness Extremities exam: PRESENT: other - Bilateral hand swelling. Minimal bilateral foot swelling. Neurological exam: PRESENT: alert, oriented to person, oriented to place, oriented to situation - Although the patient has some memory deficits, she is aware of the situation and seems to mentate clearly and make appropriate questions and responded properly to questions as well. Psychiatric exam: PRESENT: appropriate affect, normal mood Skin exam: PRESENT: normal color. ABSENT: jaundice Results Laboratory Results: 10/17/16 07:50 10/17/16 00:50 10/15/16 10/16/16 10/16/16 04:40 14:42 22:15 WBC 8.7 15.2 H RBC 3.87 3.09 L Hgb 10.6 L D 8.2 L D Hct 31.5 L 25.0 L MCV 81 81 MCH 27.3 26.6 L MCHC 33.5 32.8 RDW 15.7 H 15.6 H Plt Count 217 210 Seg Neutrophils % 79.8 H Lymphocytes % 10.3 L Monocytes % 7.0 Eosinophils % 2.6 Basophils % 0.3 Absolute Neutrophils 6.9 Absolute Lymphocytes 0.9 Absolute Monocytes 0.6 Absolute Eosinophils 0.2 Absolute Basophils 0.0 Sodium Potassium Chloride Carbon Dioxide Anion Gap BUN Creatinine Est GFR ( Amer) Est GFR (Non-Af Amer) Glucose Lactic Acid Calcium Blood Type O POSITIVE Antibody Screen NEGATIVE 10/16/16 10/17/16 10/17/16 22:15 00:50 07:50 WBC 9.6 RBC 2.41 L Hgb 6.7 L Hct 20.0 L MCV 83 MCH 27.6 MCHC 33.3 RDW 15.1 H Plt Count 139 L Seg Neutrophils % 80.1 H Lymphocytes % 7.7 L Monocytes % 11.0 Eosinophils % 0.8 Basophils % 0.4 Absolute Neutrophils 7.7 Absolute Lymphocytes 0.7 Absolute Monocytes 1.1 Absolute Eosinophils 0.1 Absolute Basophils 0.0 Sodium 138.1 Potassium 3.9 Chloride 119 H Carbon Dioxide 14 L Anion Gap 5 BUN 13 Creatinine 0.70 Est GFR ( Amer) > 60 Est GFR (Non-Af Amer) > 60 Glucose 143 H Lactic Acid 0.8 Calcium 6.4 L* Blood Type Antibody Screen Impressions: GI Bleed Scan Nuclear Medicine 10/16/16 14:23 IMPRESSION: Positive for active GI bleeding in the proximal colon. Status: Image reviewed by me Assessment & Plan - Diagnosis (1) Acute blood loss anemia Is this a current diagnosis for this admission?: Yes (2) Bimalleolar fracture of right ankle Qualifiers: Encounter type: subsequent encounter Fracture type: closed Fracture healing: with delayed healing Qualified Code(s): S82.841G - Displaced bimalleolar fracture of right lower leg, subsequent encounter for closed fracture with delayed healing Is this a current diagnosis for this admission?: Yes (3) Generalized weakness Is this a current diagnosis for this admission?: Yes (4) TIA (transient ischemic attack) Qualifiers: Transient cerebral ischemia type: unspecified Qualified Code(s): G45.9 - Transient cerebral ischemic attack, unspecified Is this a current diagnosis for this admission?: Yes (5) Diastolic CHF Qualifiers: Congestive heart failure chronicity: chronic Qualified Code(s): I50.32 - Chronic diastolic (congestive) heart failure Is this a current diagnosis for this admission?: Yes (6) GI bleed Is this a current diagnosis for this admission?: YesPlan: GI bleed. No active bleeding seen on colonoscopy, however bleeding scan indicated bleeding in the right side of the abdomen. The exact location is not clear, partially due to the nonspecificity of bleeding scans in general, but more so because she's had a previous right colectomy for cancer. I discussed the situation in detail with the patient and her daughter Angela. I explained that operative management would involve exploration with likely total colectomy , but this would depend on what was found. Given her previous right colectomy its difficult to know her anatomy. It does appear as if the bleeding is from the right side/right lower abdominal cavity. She would have an ileostomy. She may continue to have bleeding and require further procedures or surgeries. I believe she would do poorly with any surgical approach given her general decline over the last 2 years, her age, her series of TIAs, her untreated left carotid stenosis, chronic kidney disease as well as her other comorbidities. Although her dementia seems minimal now and she is making appropriate statements , is very common for people with seemingly minimal dementia to have extended periods of delirium and worsened dementia after major surgery and prolonged recovery. On the other hand, this is certainly a robust GI bleed requiring significant intervention including pressors and multiple blood transfusions. Has not responded those far to nonoperative intervention. It may stop spontaneously as GI bleeds often do, but it may not resulting in her rapid demise. I discussed this with her and she indicates she does not want to undergo surgery. I then discussed again with her and her daughter in the room at the same time and both of them agree that she prefers to take her chances with nonoperative management. Encourage them to talk to the rest the family and make sure that the family is supportive, but at this point she seems to be making good decisions and we should honor her wishes. I told the family that while I think she would likely make it through the initial surgery, the subsequent days to weeks would likely have a very poor outcome with surgery and would very likely end up and extended ICU/organ failure situation.
--- NOTE | 2016-10-17 14:18 | PDOC PROGRESS REPORT ---
Subjective Progress Note for:: 10/17/16 Subjective:: Patient seen on morning rounds. She is resting in comfortably in bed. She denies any nausea, vomiting, abdominal pain or diarrhea. She did have 2 bloody stools during the night. She denies any shortness of breath, cough or dyspnea. She denies any chest pain or dizziness. She is going to undergo an EGD and colonoscopy later this morning. Dr. Hinojosa saw the patient last evening due to positive bleeding scan. He discuessed results with the patient and her daughter Stephani. The patient stated she did not want to have surgery. She did become hypotensive overnight requiring fluid bolus Physical Exam Vital Signs: Temp Pulse Resp BP Pulse Ox 98.2 F 51 L 20 149/91 H 91 L 10/17/16 12:00 10/17/16 12:00 10/17/16 12:00 10/17/16 12:00 10/17/16 12:00 Intake & Output 10/16/16 10/17/16 10/18/16 06:59 06:59 06:59 Intake Total 5394 6091 586 Output Total 245 400 53 Balance 5149 5691 533 Weight 53.9 kg 57.5 kg General appearance: PRESENT: no acute distress, cooperative, hard of hearing, thin, well-developed Head exam: PRESENT: atraumatic, normocephalic Eye exam: PRESENT: conjunctiva pink, EOMI, PERRLA. ABSENT: scleral icterus Ear exam: PRESENT: normal external ear exam Mouth exam: PRESENT: moist, tongue midline Teeth exam: PRESENT: edentulous Neck exam: ABSENT: carotid bruit, JVD, lymphadenopathy, thyromegaly Respiratory exam: PRESENT: clear to auscultation arely. ABSENT: rales, rhonchi, wheezes Cardiovascular exam: PRESENT: RRR. ABSENT: diastolic murmur, rubs, systolic murmur Pulses: PRESENT: normal dorsalis pedis pul Vascular exam: PRESENT: normal capillary refill GI/Abdominal exam: PRESENT: hypoactive bowel sounds, soft Rectal exam: PRESENT: bloody stool Extremities exam: PRESENT: full ROM. ABSENT: calf tenderness, clubbing, pedal edema Neurological exam: PRESENT: alert, awake, oriented to person, oriented to place , oriented to situation, CN II-XII grossly intact, other. ABSENT: motor sensory deficit Psychiatric exam: PRESENT: appropriate affect, normal mood. ABSENT: homicidal ideation, suicidal ideation Skin exam: PRESENT: dry, intact, warm. ABSENT: cyanosis, rash Results Laboratory Results: 10/17/16 07:50 10/17/16 00:50 10/15/16 10/16/16 10/16/16 04:40 14:42 22:15 WBC 8.7 15.2 H RBC 3.87 3.09 L Hgb 10.6 L D 8.2 L D Hct 31.5 L 25.0 L MCV 81 81 MCH 27.3 26.6 L MCHC 33.5 32.8 RDW 15.7 H 15.6 H Plt Count 217 210 Seg Neutrophils % 79.8 H Lymphocytes % 10.3 L Monocytes % 7.0 Eosinophils % 2.6 Basophils % 0.3 Absolute Neutrophils 6.9 Absolute Lymphocytes 0.9 Absolute Monocytes 0.6 Absolute Eosinophils 0.2 Absolute Basophils 0.0 Sodium Potassium Chloride Carbon Dioxide Anion Gap BUN Creatinine Est GFR ( Amer) Est GFR (Non-Af Amer) Glucose Lactic Acid Calcium Blood Type O POSITIVE Antibody Screen NEGATIVE 10/16/16 10/17/16 10/17/16 22:15 00:50 07:50 WBC 9.6 RBC 2.41 L Hgb 6.7 L Hct 20.0 L MCV 83 MCH 27.6 MCHC 33.3 RDW 15.1 H Plt Count 139 L Seg Neutrophils % 80.1 H Lymphocytes % 7.7 L Monocytes % 11.0 Eosinophils % 0.8 Basophils % 0.4 Absolute Neutrophils 7.7 Absolute Lymphocytes 0.7 Absolute Monocytes 1.1 Absolute Eosinophils 0.1 Absolute Basophils 0.0 Sodium 138.1 Potassium 3.9 Chloride 119 H Carbon Dioxide 14 L Anion Gap 5 BUN 13 Creatinine 0.70 Est GFR ( Amer) > 60 Est GFR (Non-Af Amer) > 60 Glucose 143 H Lactic Acid 0.8 Calcium 6.4 L* Blood Type Antibody Screen Impressions: Chest X-Ray 10/05/16 15:14 IMPRESSION: No acute abnormality in the chest. Head CT 10/05/16 15:14 IMPRESSION: CHRONIC CHANGES OF ATROPHY AND MICROVASCULAR ISCHEMIA. NO ACUTE PROCESS. Ankle X-Ray 10/05/16 15:29 IMPRESSION: Interval ORIF ankle fracture dislocation. No evidence of postoperative complication. Head CTA 10/06/16 00:00 IMPRESSION: NO CTA EVIDENCE OF STENOSIS OR ANEURYSM OF THE [place]. Carotid Doppler Study 10/06/16 11:41 IMPRESSION: No flow significant stenosis at the right carotid bifurcation. 50 to 69% diameter stenosis left proximal ICA at the carotid bifurcation based on velocity criteria Fluoroscopy 10/08/16 00:00 IMPRESSION: IMAGE(S) OBTAINED DURING PROCEDURE. Foot X-Ray 10/08/16 00:00 IMPRESSION: IMAGE(S) OBTAINED DURING PROCEDURE. Guidance Fluoroscopy 10/14/16 00:00 IMPRESSION: SUCCESSFUL PLACEMENT OF A 5 FR DUAL LUMEN 37 CM PICC IN THE LEFT BRACHIAL VEIN. Interventional Vascular Procedure 10/14/16 00:00 IMPRESSION: SUCCESSFUL PLACEMENT OF A 5 FR DUAL LUMEN 37 CM PICC IN THE LEFT BRACHIAL VEIN. PICC Line Insertion 10/14/16 00:00 IMPRESSION: SUCCESSFUL PLACEMENT OF A 5 FR DUAL LUMEN 37 CM PICC IN THE LEFT BRACHIAL VEIN. GI Bleed Scan Nuclear Medicine 10/16/16 14:23 IMPRESSION: Positive for active GI bleeding in the proximal colon. Assessment & Plan - Diagnosis (1) Bimalleolar fracture of right ankle Qualifiers: Encounter type: subsequent encounter Fracture type: closed Fracture healing: with delayed healing Qualified Code(s): S82.841G - Displaced bimalleolar fracture of right lower leg, subsequent encounter for closed fracture with delayed healing Is this a current diagnosis for this admission?: Yes (2) Acute blood loss anemia Is this a current diagnosis for this admission?: YesPlan: Hgb 6.7 this am. She is in the process of receiving 2 more units of PRBCs. Patient has declined surgical exploration and family are in agreement to her decision. They understand if bleeding continues it could very well precipitate her in her already frail condition (3) Generalized weakness Is this a current diagnosis for this admission?: YesPlan: Patient has had multiple falls at home prior to admission. Lives with family and has a walker. She is deconditioned and anemic with borderline left internal carotid artery stenosis. CTA of the head was negative. PT was treating up until GI bleed (4) Hypertension Qualifiers: Hypertension type: essential hypertension Qualified Code(s): I10 - Essential (primary) hypertension Is this a current diagnosis for this admission?: YesPlan: Presently normotensive (5) TIA (transient ischemic attack) Qualifiers: Transient cerebral ischemia type: unspecified Qualified Code(s): G45.9 - Transient cerebral ischemic attack, unspecified Is this a current diagnosis for this admission?: YesPlan: Left sided facial droop improved according to daughter. Moderate left internal carotid artery stenosis. CTA of the head no significant findings (6) Staphylococcus aureus bacteremia Is this a current diagnosis for this admission?: YesPlan: Patient with blood cultures x 2 initially growing staph aureus. She is on ancef at the present time Discussed the case with Dr Felicita Patel Infectious Disease. She feels patient will need a minimum of 6 weeks of IV antibiotics. Discussed the plan and need for PICC line with patient's daughter Britt and are in agreement to proceed. Family is now considering possibility of rehab placement (7) Hypovolemic shock Is this a current diagnosis for this admission?: YesPlan: Secondary to lower GI bleeding. She is now normotensive off pressors after transfusion of total of 4 units PRBCs. She had 2 bloody stools overnight (8) Diastolic CHF Qualifiers: Congestive heart failure chronicity: chronic Qualified Code(s): I50.32 - Chronic diastolic (congestive) heart failure Is this a current diagnosis for this admission?: YesPlan: Patient is presently euvolemic (9) Goals of care, counseling/discussion Is this a current diagnosis for this admission?: YesPlan: Discussed with daughters and son in the presence of the patient goals of care for their mother and her wishes. Patient has stated she doesn't want surgery for any reason. She also has stated that she wants to be allowed a natural when it is her time. Explained to children the options of full code versus do not rescucitate but continue active care. They are in agreement with no CPR or intubation . They would like to continue to support her with medications unless she further declines. DNR order placed - Time Time Spent with patient: 25-34 minutes Critical Time spent with patient: 25-34 minutes Medications reviewed and adjusted accordingly: Yes
[2016-10-17] MEDS ORDERED: MORPHINE SULFATE 10 MG/ML INJ IV PRN (18:42)
--- NOTE | 2016-10-17 18:44 | Progress Note ---
Provider Note Provider Note: Called the patient room for massive hematochezia. Discussed case with daughter who is at bedside and she reiterates mother's DO NOT RESUSCITATE status. Discussed with patient and she denies any pain. Will give last transfused units. Have discussed with daughter not continuing blood transfusions due to risk for coagulopathy and for patient's inability to have definitive medical treatment. Daughter in agreement with current plan. Will place morphine for when necessary pain.
[2016-10-17] MEDS: ATORVASTATIN CALCIUM 80 MG TABLET PO SCH (22:47)
[2016-10-18] MEDS: ACETAMINOPHEN 325 MG TABLET PO SCH ×5 (00:42→23:49)
[2016-10-18] MEDS: DEXTROSE 5%-1/2 NORMAL SALINE 1,000 ML IV PRN ×2 (02:12→18:26)
[2016-10-18 07:16] LABS: PROTHROMBIN TIME 17.8 SEC (11.4-15.4)
[2016-10-18 07:34] LABS: ALANINE AMINOTRANSFERASE 19 U/L (9-52); ALBUMIN 1.2 g/dL (3.5-5.0); ALKALINE PHOSPHATASE 72 U/L (38-126); ANION GAP 5 (5-19); ASPARTATE AMINO TRANSFERASE 23 U/L (14-36); BILIRUBIN,TOTAL 0.3 mg/dL (0.2-1.3); BLOOD UREA NITROGEN 13 mg/dL (7-20); CARBON DIOXIDE 14 mmol/L (22-30); CHLORIDE 119 mmol/L (98-107); CREATININE RESULT 0.81 mg/dL (0.52-1.25); GLUCOSE 64 mg/dL (75-110); POTASSIUM 3.8 mmol/L (3.6-5.0); SODIUM 138.3 mmol/L (137-145); TOTAL PROTEIN 3.1 g/dL (6.3-8.2)
[2016-10-18 07:44] LABS: CALCIUM 6.9 mg/dL (8.4-10.2)
[2016-10-18 07:50] LABS: HEMATOCRIT 25.6 % (36.0-47.0); HGB HCT DIFFERENCE 0.8; MEAN CORPUSCULAR HEMOGLOBIN 29.7 pg (27.0-33.4); MEAN CORPUSCULAR HGB CONC 34.4 g/dL (32.0-36.0); MEAN CORPUSCULAR VOLUME 86 fl (80-97); RED BLOOD COUNT 2.97 10^6/uL (3.72-5.28); RED CELL DISTRIBUTION WIDTH 15.3 % (11.5-14.0); WHITE BLOOD COUNT 10.3 10^3/uL (4.0-10.5)
[2016-10-18 08:05] LABS: HEMOGLOBIN 8.8 g/dL (12.0-15.5)
--- NOTE | 2016-10-18 09:00 | PDOC PROGRESS REPORT ---
Subjective Progress Note for:: 10/18/16 Subjective:: Patient seen on morning rounds. She is resting in comfortably in bed. Daughters are at bedside and stated she did not sleep much last night. She denies any nausea, vomiting, or abdominal pain She did have 2 bloody stools during the night. She was transfused one more unit of PRBCs. After discussion with daughters and Dr Carpenter, we will not transfuse any more presently She denies any shortness of breath, cough or dyspnea. She denies any chest pain or dizziness. She is complaining of pain in the right ankle but refused morphine that was ordered. She would like a pain pill. She did become hypotensive overnight requiring fluid bolus Physical Exam Vital Signs: Temp Pulse Resp BP Pulse Ox 98.0 F 56 L 18 105/48 L 100 10/18/16 04:29 10/18/16 04:29 10/18/16 04:29 10/18/16 04:29 10/18/16 04:29 Intake & Output 10/17/16 10/18/16 10/19/16 06:59 06:59 06:59 Intake Total 6091 2136 Output Total 400 53 Balance 5691 2083 Weight 57.5 kg General appearance: PRESENT: no acute distress, thin, well-developed, well- nourished Head exam: PRESENT: atraumatic, normocephalic Eye exam: PRESENT: conjunctiva pink, EOMI, PERRLA. ABSENT: scleral icterus Ear exam: PRESENT: normal external ear exam Mouth exam: PRESENT: moist, tongue midline Neck exam: ABSENT: carotid bruit, JVD, lymphadenopathy, thyromegaly Respiratory exam: PRESENT: clear to auscultation arely, decreased breath sounds - bases. ABSENT: rales, rhonchi, wheezes Cardiovascular exam: PRESENT: RRR. ABSENT: diastolic murmur, rubs, systolic murmur Pulses: PRESENT: normal dorsalis pedis pul Vascular exam: PRESENT: normal capillary refill GI/Abdominal exam: PRESENT: normal bowel sounds, soft. ABSENT: distended, guarding, mass, organolmegaly, rebound, tenderness Rectal exam: PRESENT: deferred, bloody stool Extremities exam: PRESENT: tenderness - right ankle. Wrapped in surgical dressing Musculoskeletal exam: PRESENT: full ROM, normal inspection, tenderness Neurological exam: PRESENT: alert, altered, oriented to person, CN II-XII grossly intact Psychiatric exam: PRESENT: appropriate affect, normal mood, other - intermittent confusion. ABSENT: homicidal ideation, suicidal ideation Skin exam: PRESENT: dry, intact, warm. ABSENT: cyanosis, rash Results Laboratory Results: 10/18/16 07:30 10/18/16 06:35 10/15/16 10/18/16 10/18/16 04:40 06:35 07:30 WBC 10.3 RBC 2.97 L Hgb 8.8 L D Hct 25.6 L MCV 86 MCH 29.7 MCHC 34.4 RDW 15.3 H Plt Count 140 L Sodium 138.3 Potassium 3.8 Chloride 119 H Carbon Dioxide 14 L Anion Gap 5 BUN 13 Creatinine 0.81 Est GFR ( Amer) > 60 Est GFR (Non-Af Amer) > 60 Glucose 64 L Calcium 6.9 L* Total Bilirubin 0.3 AST 23 ALT 19 Alkaline Phosphatase 72 Total Protein 3.1 L Albumin 1.2 L Blood Type O POSITIVE Antibody Screen NEGATIVE Impressions: Chest X-Ray 10/05/16 15:14 IMPRESSION: No acute abnormality in the chest. Head CT 10/05/16 15:14 IMPRESSION: CHRONIC CHANGES OF ATROPHY AND MICROVASCULAR ISCHEMIA. NO ACUTE PROCESS. Ankle X-Ray 10/05/16 15:29 IMPRESSION: Interval ORIF ankle fracture dislocation. No evidence of postoperative complication. Head CTA 10/06/16 00:00 IMPRESSION: NO CTA EVIDENCE OF STENOSIS OR ANEURYSM OF THE [place]. Carotid Doppler Study 10/06/16 11:41 IMPRESSION: No flow significant stenosis at the right carotid bifurcation. 50 to 69% diameter stenosis left proximal ICA at the carotid bifurcation based on velocity criteria Fluoroscopy 10/08/16 00:00 IMPRESSION: IMAGE(S) OBTAINED DURING PROCEDURE. Foot X-Ray 10/08/16 00:00 IMPRESSION: IMAGE(S) OBTAINED DURING PROCEDURE. Guidance Fluoroscopy 10/14/16 00:00 IMPRESSION: SUCCESSFUL PLACEMENT OF A 5 FR DUAL LUMEN 37 CM PICC IN THE LEFT BRACHIAL VEIN. Interventional Vascular Procedure 10/14/16 00:00 IMPRESSION: SUCCESSFUL PLACEMENT OF A 5 FR DUAL LUMEN 37 CM PICC IN THE LEFT BRACHIAL VEIN. PICC Line Insertion 10/14/16 00:00 IMPRESSION: SUCCESSFUL PLACEMENT OF A 5 FR DUAL LUMEN 37 CM PICC IN THE LEFT BRACHIAL VEIN. GI Bleed Scan Nuclear Medicine 10/16/16 14:23 IMPRESSION: Positive for active GI bleeding in the proximal colon. Assessment & Plan - Diagnosis (1) Bimalleolar fracture of right ankle Qualifiers: Encounter type: subsequent encounter Fracture type: closed Fracture healing: with delayed healing Qualified Code(s): S82.841G - Displaced bimalleolar fracture of right lower leg, subsequent encounter for closed fracture with delayed healing Is this a current diagnosis for this admission?: YesPlan: Patient underwent debridement and hardware removal of right ankle wound with wash out by Dr Easley on 10/09. Blood cultures now negative x 72 hrs. [address] line in place will need 6 weeks of antibiotic therapy (2) Acute blood loss anemia Is this a current diagnosis for this admission?: YesPlan: Hgb 8.8 this am, She had a large amount of rectal bleeding in the evening and was transfused one unit. Dr Carpenter spoke with daughter about not transfusing any more blood. She is in agreement (3) Generalized weakness Is this a current diagnosis for this admission?: YesPlan: Patient has had multiple falls at home prior to admission. Lives with family and has a walker. She is deconditioned and anemic with borderline left internal carotid artery stenosis. CTA of the head was negative. PT was treating up until GI bleed (4) Hypertension Qualifiers: Hypertension type: essential hypertension Qualified Code(s): I10 - Essential (primary) hypertension Is this a current diagnosis for this admission?: YesPlan: Presently normotensive (5) TIA (transient ischemic attack) Qualifiers: Transient cerebral ischemia type: unspecified Qualified Code(s): G45.9 - Transient cerebral ischemic attack, unspecified Is this a current diagnosis for this admission?: YesPlan: Left sided facial droop improved according to daughter. Moderate left internal carotid artery stenosis. CTA of the head no significant findings (6) Staphylococcus aureus bacteremia Is this a current diagnosis for this admission?: YesPlan: Patient with blood cultures x 2 initially growing staph aureus. She is on ancef at the present time Discussed the case with Dr Felicita Patel Infectious Disease. She feels patient will need a minimum of 6 weeks of IV antibiotics. Discussed the plan and need for PICC line with patient's daughter Britt and are in agreement to proceed. Family is now considering possibility of rehab placement (7) Hypovolemic shock Is this a current diagnosis for this admission?: YesPlan: Secondary to lower GI bleeding. She is now normotensive off pressors after transfusion of total of 4 units PRBCs. She had 2 bloody stools overnight (8) Diastolic CHF Qualifiers: Congestive heart failure chronicity: chronic Qualified Code(s): I50.32 - Chronic diastolic (congestive) heart failure Is this a current diagnosis for this admission?: YesPlan: Patient is presently euvolemic (9) Goals of care, counseling/discussion Is this a current diagnosis for this admission?: Yes - Time Time Spent with patient: 25-34 minutes Critical Time spent with patient: 15-24 minutes Medications reviewed and adjusted accordingly: Yes
--- NOTE | 2016-10-18 09:09 | PDOC PROGRESS REPORT ---
Subjective Subjective:: Late entry. Noticed for rounding on the evening of 10/17/2016. Patient has been transferred from the unit to the floor. The patient and her 3 daughters are present in the room when we discussed their decision to continue with nonoperative management. They are all in agreement and at peace with that. Furthermore, they have spoken with internal medicine and are going to stop blood transfusions. Physical Exam Vital Signs: Temp Pulse Resp BP Pulse Ox 98.0 F 56 L 18 105/48 L 100 10/18/16 04:29 10/18/16 04:29 10/18/16 04:29 10/18/16 04:29 10/18/16 04:29 Intake & Output 10/17/16 10/18/16 10/19/16 06:59 06:59 06:59 Intake Total 6091 2136 Output Total 400 53 Balance 5691 2083 Weight 57.5 kg General appearance: PRESENT: no acute distress, thin - Frail-appearing Respiratory exam: PRESENT: unlabored Neurological exam: PRESENT: alert, oriented to situation Results Laboratory Results: 10/18/16 07:30 10/18/16 06:35 10/15/16 10/18/16 10/18/16 04:40 06:35 07:30 WBC 10.3 RBC 2.97 L Hgb 8.8 L D Hct 25.6 L MCV 86 MCH 29.7 MCHC 34.4 RDW 15.3 H Plt Count 140 L Sodium 138.3 Potassium 3.8 Chloride 119 H Carbon Dioxide 14 L Anion Gap 5 BUN 13 Creatinine 0.81 Est GFR ( Amer) > 60 Est GFR (Non-Af Amer) > 60 Glucose 64 L Calcium 6.9 L* Total Bilirubin 0.3 AST 23 ALT 19 Alkaline Phosphatase 72 Total Protein 3.1 L Albumin 1.2 L Blood Type O POSITIVE Antibody Screen NEGATIVE Impressions: Chest X-Ray 10/05/16 15:14 IMPRESSION: No acute abnormality in the chest. Head CT 10/05/16 15:14 IMPRESSION: CHRONIC CHANGES OF ATROPHY AND MICROVASCULAR ISCHEMIA. NO ACUTE PROCESS. Ankle X-Ray 10/05/16 15:29 IMPRESSION: Interval ORIF ankle fracture dislocation. No evidence of postoperative complication. Head CTA 10/06/16 00:00 IMPRESSION: NO CTA EVIDENCE OF STENOSIS OR ANEURYSM OF THE [place]. Carotid Doppler Study 10/06/16 11:41 IMPRESSION: No flow significant stenosis at the right carotid bifurcation. 50 to 69% diameter stenosis left proximal ICA at the carotid bifurcation based on velocity criteria Fluoroscopy 10/08/16 00:00 IMPRESSION: IMAGE(S) OBTAINED DURING PROCEDURE. Foot X-Ray 10/08/16 00:00 IMPRESSION: IMAGE(S) OBTAINED DURING PROCEDURE. Guidance Fluoroscopy 10/14/16 00:00 IMPRESSION: SUCCESSFUL PLACEMENT OF A 5 FR DUAL LUMEN 37 CM PICC IN THE LEFT BRACHIAL VEIN. Interventional Vascular Procedure 10/14/16 00:00 IMPRESSION: SUCCESSFUL PLACEMENT OF A 5 FR DUAL LUMEN 37 CM PICC IN THE LEFT BRACHIAL VEIN. PICC Line Insertion 10/14/16 00:00 IMPRESSION: SUCCESSFUL PLACEMENT OF A 5 FR DUAL LUMEN 37 CM PICC IN THE LEFT BRACHIAL VEIN. GI Bleed Scan Nuclear Medicine 10/16/16 14:23 IMPRESSION: Positive for active GI bleeding in the proximal colon. Assessment & Plan - Diagnosis (1) Acute blood loss anemia Is this a current diagnosis for this admission?: Yes (2) Bimalleolar fracture of right ankle Qualifiers: Encounter type: subsequent encounter Fracture type: closed Fracture healing: with delayed healing Qualified Code(s): S82.841G - Displaced bimalleolar fracture of right lower leg, subsequent encounter for closed fracture with delayed healing Is this a current diagnosis for this admission?: Yes (3) Generalized weakness Is this a current diagnosis for this admission?: Yes (4) TIA (transient ischemic attack) Qualifiers: Transient cerebral ischemia type: unspecified Qualified Code(s): G45.9 - Transient cerebral ischemic attack, unspecified Is this a current diagnosis for this admission?: Yes (5) Diastolic CHF Qualifiers: Congestive heart failure chronicity: chronic Qualified Code(s): I50.32 - Chronic diastolic (congestive) heart failure Is this a current diagnosis for this admission?: Yes (6) GI bleed Is this a current diagnosis for this admission?: YesPlan: The patient and her family are all in agreement and at peace with not pursuing operative management. Furthermore they have decided against further blood transfusions. They understand that while the bleed may stop spontaneously, it has not thus far, and will likely result in her short-term demise. She is happy with this. The daughter outside the room recounts her significant decline over the last year since her brother and her daughter that she lived with for 69 years did as well. Surgery will sign off. Reconsult as needed.
[2016-10-18] MEDS: SUCRALFATE SUSP 1 GM/10 ML UDCUP PO SCH ×4 (10:51→22:47)
[2016-10-18] MEDS: DOCUSATE SODIUM 100 MG CAPSULE PO SCH ×2 (10:52→18:35)
[2016-10-18] MEDS: FERROUS SULFATE LIQUID 300 MG/5 ML UDC PO SCH ×2 (11:00→18:18)
[2016-10-18] MEDS: LACTOBACILLUS ACIDOPHILUS 250 MG TAB PO SCH ×2 (11:01→18:17)
[2016-10-18] MEDS: OXYCODONE-ACETAMINOPHEN 5-325 MG TABLET PO PRN ×2 (11:01→20:35)
[2016-10-18] MEDS: METOPROLOL SUCCINATE 50 MG TAB.SR.24H PO SCH (11:02)
[2016-10-18] MEDS: PANTOPRAZOLE SODIUM 40 MG VIAL IV SCH ×2 (11:03→22:47)
[2016-10-18] MEDS: NORMAL SALINE 10 ML SDV (SCHEDULED) IV SCH ×2 (11:04→22:47)
[2016-10-18] MEDS: ATORVASTATIN CALCIUM 80 MG TABLET PO SCH (22:47)
[2016-10-19] MEDS: DEXTROSE 5%-1/2 NORMAL SALINE 1,000 ML IV PRN (06:09)
[2016-10-19] MEDS: ACETAMINOPHEN 325 MG TABLET PO SCH ×4 (06:10→23:20)
[2016-10-19] MEDS: DEXTROSE 50%-WATER 25 GM/50 ML DISP.SYRIN IV PRN ×2 (06:54→13:08)
[2016-10-19] MEDS: DOCUSATE SODIUM 100 MG CAPSULE PO SCH ×2 (08:57→17:33)
[2016-10-19] MEDS: LACTOBACILLUS ACIDOPHILUS 250 MG TAB PO SCH ×2 (09:06→17:41)
[2016-10-19] MEDS: SUCRALFATE SUSP 1 GM/10 ML UDCUP PO SCH ×4 (09:06→22:19)
[2016-10-19] MEDS: FERROUS SULFATE LIQUID 300 MG/5 ML UDC PO SCH ×2 (09:06→17:41)
[2016-10-19] MEDS: PANTOPRAZOLE SODIUM 40 MG VIAL IV SCH ×2 (09:06→22:23)
[2016-10-19] MEDS: METOPROLOL SUCCINATE 50 MG TAB.SR.24H PO SCH (09:06)
[2016-10-19] MEDS: NORMAL SALINE 10 ML SDV (SCHEDULED) IV SCH ×2 (09:07→22:24)
[2016-10-19] MEDS: OXYCODONE-ACETAMINOPHEN 5-325 MG TABLET PO PRN (10:44)
--- NOTE | 2016-10-19 11:36 | PDOC PROGRESS REPORT ---
Subjective Progress Note for:: 10/19/16 Subjective:: Patient seen on morning rounds. She is resting in comfortably in bed. Daughter at bedside and states she did sleep better last night. She denies any nausea, vomiting, or abdominal pain She had one small tarry stool last night. She denies any shortness of breath, cough or dyspnea. She denies any chest pain or dizziness. She is complaining of pain in the right ankle but refused morphine that was ordered. She would like a pain pill. She did become hypotensive overnight requiring fluid bolus Physical Exam Vital Signs: Temp Pulse Resp BP Pulse Ox 98.1 F 69 18 130/61 H 100 10/19/16 07:06 10/19/16 07:06 10/19/16 07:06 10/19/16 07:06 10/19/16 07:06 Intake & Output 10/18/16 10/19/16 10/20/16 06:59 06:59 06:59 Intake Total 2136 1645 Output Total 53 400 Balance 2083 1245 Weight 58 kg General appearance: PRESENT: no acute distress, thin, well-developed, well- nourished Head exam: PRESENT: atraumatic, normocephalic Eye exam: PRESENT: conjunctiva pink, EOMI, PERRLA. ABSENT: scleral icterus Ear exam: PRESENT: normal external ear exam Mouth exam: PRESENT: moist, tongue midline Neck exam: ABSENT: carotid bruit, JVD, lymphadenopathy, thyromegaly Respiratory exam: PRESENT: clear to auscultation arely. ABSENT: rales, rhonchi, wheezes Cardiovascular exam: PRESENT: RRR. ABSENT: diastolic murmur, rubs, systolic murmur Pulses: PRESENT: normal dorsalis pedis pul Vascular exam: PRESENT: normal capillary refill GI/Abdominal exam: PRESENT: normal bowel sounds, soft. ABSENT: distended, guarding, mass, organolmegaly, rebound, tenderness Rectal exam: PRESENT: black stool Extremities exam: PRESENT: full ROM - right ankle at incision, tenderness Musculoskeletal exam: PRESENT: tenderness Neurological exam: PRESENT: alert, awake, oriented to person, oriented to place , oriented to situation, CN II-XII grossly intact. ABSENT: motor sensory deficit Psychiatric exam: PRESENT: agitated Skin exam: PRESENT: dry, intact, warm. ABSENT: cyanosis, rash Results Laboratory Results: 10/18/16 07:30 10/18/16 06:35 Impressions: Chest X-Ray 10/05/16 15:14 IMPRESSION: No acute abnormality in the chest. Head CT 10/05/16 15:14 IMPRESSION: CHRONIC CHANGES OF ATROPHY AND MICROVASCULAR ISCHEMIA. NO ACUTE PROCESS. Ankle X-Ray 10/05/16 15:29 IMPRESSION: Interval ORIF ankle fracture dislocation. No evidence of postoperative complication. Head CTA 10/06/16 00:00 IMPRESSION: NO CTA EVIDENCE OF STENOSIS OR ANEURYSM OF THE [place]. Carotid Doppler Study 10/06/16 11:41 IMPRESSION: No flow significant stenosis at the right carotid bifurcation. 50 to 69% diameter stenosis left proximal ICA at the carotid bifurcation based on velocity criteria Fluoroscopy 10/08/16 00:00 IMPRESSION: IMAGE(S) OBTAINED DURING PROCEDURE. Foot X-Ray 10/08/16 00:00 IMPRESSION: IMAGE(S) OBTAINED DURING PROCEDURE. Guidance Fluoroscopy 10/14/16 00:00 IMPRESSION: SUCCESSFUL PLACEMENT OF A 5 FR DUAL LUMEN 37 CM PICC IN THE LEFT BRACHIAL VEIN. Interventional Vascular Procedure 10/14/16 00:00 IMPRESSION: SUCCESSFUL PLACEMENT OF A 5 FR DUAL LUMEN 37 CM PICC IN THE LEFT BRACHIAL VEIN. PICC Line Insertion 10/14/16 00:00 IMPRESSION: SUCCESSFUL PLACEMENT OF A 5 FR DUAL LUMEN 37 CM PICC IN THE LEFT BRACHIAL VEIN. GI Bleed Scan Nuclear Medicine 10/16/16 14:23 IMPRESSION: Positive for active GI bleeding in the proximal colon. Assessment & Plan - Diagnosis (1) Bimalleolar fracture of right ankle Qualifiers: Encounter type: subsequent encounter Fracture type: closed Fracture healing: with delayed healing Qualified Code(s): S82.841G - Displaced bimalleolar fracture of right lower leg, subsequent encounter for closed fracture with delayed healing Is this a current diagnosis for this admission?: YesPlan: Patient underwent debridement and hardware removal of right ankle wound with wash out by Dr Easley on 10/09. Blood cultures now negative x 72 hrs. [address]ICC line in place will need 6 weeks of antibiotic therapy (2) Acute blood loss anemia Is this a current diagnosis for this admission?: YesPlan: She had dark tarry stool last night, no active gretta blood rectally for the last 24 hrs. She refused surgery. Family in agreement to no further transfusions (3) Generalized weakness Is this a current diagnosis for this admission?: YesPlan: Patient has had multiple falls at home prior to admission. Lives with family and has a walker. She is deconditioned and anemic with borderline left internal carotid artery stenosis. CTA of the head was negative. PT was treating up until GI bleed (4) Hypertension Qualifiers: Hypertension type: essential hypertension Qualified Code(s): I10 - Essential (primary) hypertension Is this a current diagnosis for this admission?: YesPlan: Presently normotensive (5) TIA (transient ischemic attack) Qualifiers: Transient cerebral ischemia type: unspecified Qualified Code(s): G45.9 - Transient cerebral ischemic attack, unspecified Is this a current diagnosis for this admission?: YesPlan: Left sided facial droop improved according to daughter. Moderate left internal carotid artery stenosis. CTA of the head no significant findings (6) Staphylococcus aureus bacteremia Is this a current diagnosis for this admission?: YesPlan: Patient with blood cultures x 2 initially growing staph aureus. She is on ancef at the present time Discussed the case with Dr Felicita Patel Infectious Disease. She feels patient will need a minimum of 6 weeks of IV antibiotics. Discussed the plan and need for PICC line with patient's daughter Britt and are in agreement to proceed. Family is now considering possibility of rehab placement (7) Hypovolemic shock Is this a current diagnosis for this admission?: YesPlan: Secondary to lower GI bleeding. She is now normotensive off pressors after transfusion of total of 4 units PRBCs. She had 2 bloody stools overnight (8) Diastolic CHF Qualifiers: Congestive heart failure chronicity: chronic Qualified Code(s): I50.32 - Chronic diastolic (congestive) heart failure Is this a current diagnosis for this admission?: YesPlan: Patient is presently euvolemic (9) Goals of care, counseling/discussion Is this a current diagnosis for this admission?: YesPlan: Discussed with daughters and son in the presence of the patient goals of care for their mother and her wishes. Patient has stated she doesn't want surgery for any reason. She also has stated that she wants to be allowed a natural when it is her time. Explained to children the options of full code versus do not rescucitate but continue active care. They are in agreement with no CPR or intubation . They would like to continue to support her with medications unless she further declines. DNR order placed - Time Time Spent with patient: 25-34 minutes Critical Time spent with patient: 15-24 minutes Anticipated discharge: SNF
--- NOTE | 2016-10-19 13:04 | PDOC PROGRESS REPORT ---
Subjective Progress Note for:: 10/19/16 Subjective:: Patient had EGD and colonoscopy last week. At the point of her procedures bleeding had stopped. She was noted to have a right hemicolectomy with the right-sided anastomosis. She also has diverticulosis on that side. Upper endoscopy is negative. Over the weekend she did have another episode of bleeding that is accompanied by hypotension. A bleeding scan was done was noted that it might be in the ascending colon area. Surgery was called. In the discussion with the family surgery was declined. However given the fact that she sent intermittent bleeding, required a large number of blood transfusions along with the fact that she gets hypotensive suggest that the blood vessel that was bleeding bleeding is fairly large. If she continues ablation may warrant transfer for embolization at a tertiary institution. It could be right-sided diverticular bleeding. Otherwise relatively stable for right now Status post blood transfusion. Physical Exam Vital Signs: Temp Pulse Resp BP Pulse Ox 98.1 F 69 18 130/61 H 100 10/19/16 07:06 10/19/16 07:06 10/19/16 07:06 10/19/16 07:06 10/19/16 07:06 Intake & Output 10/18/16 10/19/16 10/20/16 06:59 06:59 06:59 Intake Total 2136 1645 Output Total 53 400 Balance 2083 1245 Weight 58 kg General appearance: PRESENT: no acute distress, thin Head exam: PRESENT: atraumatic, normocephalic Eye exam: PRESENT: EOMI, PERRLA. ABSENT: nystagmus, periorbital swelling, scleral icterus Throat exam: ABSENT: tonsillar exudate Neck exam: ABSENT: meningismus, tenderness, thyromegaly Respiratory exam: PRESENT: clear to auscultation arely, symmetrical, unlabored Cardiovascular exam: PRESENT: RRR, +S1, +S2 GI/Abdominal exam: PRESENT: hyperactive bowel sounds, soft. ABSENT: Negro's sign, rebound, rigid, tenderness Extremities exam: ABSENT: joint swelling Musculoskeletal exam: PRESENT: normal inspection Neurological exam: PRESENT: alert, awake, oriented to time, CN II-XII grossly intact Psychiatric exam: PRESENT: appropriate affect Skin exam: PRESENT: normal color. ABSENT: mottled, pallor, petechiae, urticaria , vesicles Results Laboratory Results: 10/18/16 07:30 10/18/16 06:35 Impressions: Chest X-Ray 10/05/16 15:14 IMPRESSION: No acute abnormality in the chest. Head CT 10/05/16 15:14 IMPRESSION: CHRONIC CHANGES OF ATROPHY AND MICROVASCULAR ISCHEMIA. NO ACUTE PROCESS. Ankle X-Ray 10/05/16 15:29 IMPRESSION: Interval ORIF ankle fracture dislocation. No evidence of postoperative complication. Head CTA 10/06/16 00:00 IMPRESSION: NO CTA EVIDENCE OF STENOSIS OR ANEURYSM OF THE [place]. Carotid Doppler Study 10/06/16 11:41 IMPRESSION: No flow significant stenosis at the right carotid bifurcation. 50 to 69% diameter stenosis left proximal ICA at the carotid bifurcation based on velocity criteria Fluoroscopy 10/08/16 00:00 IMPRESSION: IMAGE(S) OBTAINED DURING PROCEDURE. Foot X-Ray 10/08/16 00:00 IMPRESSION: IMAGE(S) OBTAINED DURING PROCEDURE. Guidance Fluoroscopy 10/14/16 00:00 IMPRESSION: SUCCESSFUL PLACEMENT OF A 5 FR DUAL LUMEN 37 CM PICC IN THE LEFT BRACHIAL VEIN. Interventional Vascular Procedure 10/14/16 00:00 IMPRESSION: SUCCESSFUL PLACEMENT OF A 5 FR DUAL LUMEN 37 CM PICC IN THE LEFT BRACHIAL VEIN. PICC Line Insertion 10/14/16 00:00 IMPRESSION: SUCCESSFUL PLACEMENT OF A 5 FR DUAL LUMEN 37 CM PICC IN THE LEFT BRACHIAL VEIN. GI Bleed Scan Nuclear Medicine 10/16/16 14:23 IMPRESSION: Positive for active GI bleeding in the proximal colon. Assessment & Plan - Diagnosis (1) Acute blood loss anemia Is this a current diagnosis for this admission?: YesPlan: Patient does have a right hemicolectomy for previous history of colorectal cancer. However she also has right-sided diverticulosis. Bleeding scan seems to locate the lesion and possibly in the ascending colon Could be a large- volume diverticular bleed. Surgery has been consulted. However family and the patient has declined possible surgery. At this point if she were to continue to bleed and required blood transfusions it may be best to send her to a tertiary institution where embolization may be the procedure of choice in this situation. Continue to follow H&H, follow clinically transfuse as necessary. - Time Time Spent with patient: 25-34 minutes
[2016-10-19] MEDS: ATORVASTATIN CALCIUM 80 MG TABLET PO SCH (22:19)
[2016-10-20] MEDS: OXYCODONE-ACETAMINOPHEN 5-325 MG TABLET PO PRN (03:42)
[2016-10-20] MEDS: ACETAMINOPHEN 325 MG TABLET PO SCH ×3 (05:25→18:57)
[2016-10-20 05:53] LABS: ABSOLUTE EOSINOPHILS # (AUTO) 0.2 10^3/uL (0.0-0.6); ABSOLUTE MONOCYTES (AUTO) 1.3 10^3/uL (0.1-1.4); ABSOLUTE NEUT (AUTO) 6.2 10^3/uL (1.7-8.2); BASOPHILS % (AUTO) 0.4 % (0-2); EOSINOPHILS % (AUTO) 2.6 % (0-6); HEMATOCRIT 21.8 % (36.0-47.0); HGB HCT DIFFERENCE 0.4; LYMPHOCYTES % (AUTO) 11.1 % (13-45); MEAN CORPUSCULAR HEMOGLOBIN 29.4 pg (27.0-33.4); MEAN CORPUSCULAR HGB CONC 33.8 g/dL (32.0-36.0); MEAN CORPUSCULAR VOLUME 87 fl (80-97); MONOCYTES % (AUTO) 15.3 % (3-13); RED CELL DISTRIBUTION WIDTH 16.1 % (11.5-14.0); SEGMENTED NEUTROPHILS % (AUTO) 70.6 % (42-78); WHITE BLOOD COUNT 8.8 10^3/uL (4.0-10.5)
[2016-10-20 06:04] LABS: HEMOGLOBIN 7.4 g/dL (12.0-15.5)
--- NOTE | 2016-10-20 06:50 | PDOC PROGRESS REPORT ---
Subjective Progress Note for:: 10/20/16 Subjective:: Patient with minor complaints Physical Exam Vital Signs: Temp Pulse Resp BP Pulse Ox 36.6 C 63 18 113/58 L 100 10/20/16 04:46 10/20/16 04:46 10/20/16 04:46 10/20/16 04:46 10/20/16 04:46 Intake & Output 10/18/16 10/19/16 10/20/16 06:59 06:59 06:59 Intake Total 2136 1645 655 Output Total 53 400 600 Balance 2083 1245 55 Weight 58 kg General appearance: PRESENT: no acute distress Pulses: PRESENT: +1 pedal pulses bilateral Vascular exam: PRESENT: normal capillary refill Extremities exam: PRESENT: pedal edema, other - Right lower extremity dressing change. Wound is well approximated, sutures intact. No drainage, erythema, induration, minimal tenderness Results Laboratory Results: 10/20/16 05:03 10/18/16 06:35 10/20/16 05:03 WBC 8.8 RBC 2.50 L Hgb 7.4 L Hct 21.8 L MCV 87 MCH 29.4 MCHC 33.8 RDW 16.1 H Plt Count 203 Seg Neutrophils % 70.6 Lymphocytes % 11.1 L Monocytes % 15.3 H Eosinophils % 2.6 Basophils % 0.4 Absolute Neutrophils 6.2 Absolute Lymphocytes 1.0 Absolute Monocytes 1.3 Absolute Eosinophils 0.2 Absolute Basophils 0.0 Impressions: Chest X-Ray 10/05/16 15:14 IMPRESSION: No acute abnormality in the chest. Head CT 10/05/16 15:14 IMPRESSION: CHRONIC CHANGES OF ATROPHY AND MICROVASCULAR ISCHEMIA. NO ACUTE PROCESS. Ankle X-Ray 10/05/16 15:29 IMPRESSION: Interval ORIF ankle fracture dislocation. No evidence of postoperative complication. Head CTA 10/06/16 00:00 IMPRESSION: NO CTA EVIDENCE OF STENOSIS OR ANEURYSM OF THE [place]. Carotid Doppler Study 10/06/16 11:41 IMPRESSION: No flow significant stenosis at the right carotid bifurcation. 50 to 69% diameter stenosis left proximal ICA at the carotid bifurcation based on velocity criteria Fluoroscopy 10/08/16 00:00 IMPRESSION: IMAGE(S) OBTAINED DURING PROCEDURE. Foot X-Ray 10/08/16 00:00 IMPRESSION: IMAGE(S) OBTAINED DURING PROCEDURE. Guidance Fluoroscopy 10/14/16 00:00 IMPRESSION: SUCCESSFUL PLACEMENT OF A 5 FR DUAL LUMEN 37 CM PICC IN THE LEFT BRACHIAL VEIN. Interventional Vascular Procedure 10/14/16 00:00 IMPRESSION: SUCCESSFUL PLACEMENT OF A 5 FR DUAL LUMEN 37 CM PICC IN THE LEFT BRACHIAL VEIN. PICC Line Insertion 10/14/16 00:00 IMPRESSION: SUCCESSFUL PLACEMENT OF A 5 FR DUAL LUMEN 37 CM PICC IN THE LEFT BRACHIAL VEIN. GI Bleed Scan Nuclear Medicine 10/16/16 14:23 IMPRESSION: Positive for active GI bleeding in the proximal colon. Assessment & Plan - Diagnosis (1) Bimalleolar fracture of right ankle Qualifiers: Encounter type: subsequent encounter Fracture type: closed Fracture healing: with delayed healing Qualified Code(s): S82.841G - Displaced bimalleolar fracture of right lower leg, subsequent encounter for closed fracture with delayed healing Is this a current diagnosis for this admission?: YesPlan: Healing wound, status post I and D and hardware removal, right ankle
[2016-10-20] MEDS: DOCUSATE SODIUM 100 MG CAPSULE PO SCH ×2 (09:17→17:57)
[2016-10-20] MEDS: FERROUS SULFATE LIQUID 300 MG/5 ML UDC PO SCH ×2 (09:24→18:56)
[2016-10-20] MEDS: SUCRALFATE SUSP 1 GM/10 ML UDCUP PO SCH ×4 (09:24→21:51)
[2016-10-20] MEDS: LACTOBACILLUS ACIDOPHILUS 250 MG TAB PO SCH ×2 (09:24→18:58)
[2016-10-20] MEDS: METOPROLOL SUCCINATE 50 MG TAB.SR.24H PO SCH (09:28)
[2016-10-20] MEDS: NORMAL SALINE 10 ML SDV (SCHEDULED) IV SCH ×2 (09:28→21:51)
--- NOTE | 2016-10-20 14:38 | PDOC PROGRESS REPORT ---
Subjective Progress Note for:: 10/20/16 Subjective:: The patient has had a steady state of decline since my last visit. The patient will barely arouse. Facial droop does appear more prominent. The patient has not touched her breakfast. Patient's hemoglobin again trended down overnight however the family is in agreement as to no further blood transfusions. There is a conflict amongst the sisters in the patient's disposition home versus inpatient. Physical Exam Vital Signs: Temp Pulse Resp BP Pulse Ox 98.3 F 58 L 16 106/54 L 100 10/20/16 12:05 10/20/16 12:05 10/20/16 12:05 10/20/16 12:05 10/20/16 12:05 Intake & Output 10/18/16 10/19/16 10/20/16 23:59 23:59 23:59 Intake Total 1500 1650 160 Output Total 250 350 800 Balance 1250 1300 -640 Weight 58 kg General appearance: PRESENT: disheveled, thin Head exam: PRESENT: atraumatic, normocephalic Eye exam: PRESENT: conjunctiva pale. ABSENT: scleral icterus Ear exam: PRESENT: normal external ear exam Mouth exam: PRESENT: moist, tongue midline, other - Facial droop Neck exam: ABSENT: JVD, tracheal deviation, tracheostomy Respiratory exam: PRESENT: decreased breath sounds, symmetrical, unlabored. ABSENT: rales, rhonchi, tachypnea, wheezes Cardiovascular exam: PRESENT: RRR. ABSENT: diastolic murmur, rubs, systolic murmur Pulses: PRESENT: normal dorsalis pedis pul Vascular exam: PRESENT: pallor GI/Abdominal exam: PRESENT: normal bowel sounds, soft. ABSENT: distended, guarding, mass, organolmegaly, rebound, tenderness Rectal exam: PRESENT: deferred Extremities exam: PRESENT: other - Anasarca edema. ABSENT: calf tenderness, clubbing Neurological exam: PRESENT: alert - Delayed, oriented to person, oriented to place Psychiatric exam: PRESENT: flat affect. ABSENT: homicidal ideation, suicidal ideation Skin exam: PRESENT: dry, intact, warm. ABSENT: cyanosis, rash Results Laboratory Results: 10/20/16 05:03 10/18/16 06:35 10/20/16 10/20/16 05:03 07:59 WBC 8.8 RBC 2.50 L Hgb 7.4 L Hct 21.8 L MCV 87 MCH 29.4 MCHC 33.8 RDW 16.1 H Plt Count 203 Seg Neutrophils % 70.6 Lymphocytes % 11.1 L Monocytes % 15.3 H Eosinophils % 2.6 Basophils % 0.4 Absolute Neutrophils 6.2 Absolute Lymphocytes 1.0 Absolute Monocytes 1.3 Absolute Eosinophils 0.2 Absolute Basophils 0.0 Blood Type Cancelled Antibody Screen Cancelled Impressions: Chest X-Ray 10/05/16 15:14 IMPRESSION: No acute abnormality in the chest. Head CT 10/05/16 15:14 IMPRESSION: CHRONIC CHANGES OF ATROPHY AND MICROVASCULAR ISCHEMIA. NO ACUTE PROCESS. Ankle X-Ray 10/05/16 15:29 IMPRESSION: Interval ORIF ankle fracture dislocation. No evidence of postoperative complication. Head CTA 10/06/16 00:00 IMPRESSION: NO CTA EVIDENCE OF STENOSIS OR ANEURYSM OF THE [place]. Carotid Doppler Study 10/06/16 11:41 IMPRESSION: No flow significant stenosis at the right carotid bifurcation. 50 to 69% diameter stenosis left proximal ICA at the carotid bifurcation based on velocity criteria Fluoroscopy 10/08/16 00:00 IMPRESSION: IMAGE(S) OBTAINED DURING PROCEDURE. Foot X-Ray 10/08/16 00:00 IMPRESSION: IMAGE(S) OBTAINED DURING PROCEDURE. Guidance Fluoroscopy 10/14/16 00:00 IMPRESSION: SUCCESSFUL PLACEMENT OF A 5 FR DUAL LUMEN 37 CM PICC IN THE LEFT BRACHIAL VEIN. Interventional Vascular Procedure 10/14/16 00:00 IMPRESSION: SUCCESSFUL PLACEMENT OF A 5 FR DUAL LUMEN 37 CM PICC IN THE LEFT BRACHIAL VEIN. PICC Line Insertion 10/14/16 00:00 IMPRESSION: SUCCESSFUL PLACEMENT OF A 5 FR DUAL LUMEN 37 CM PICC IN THE LEFT BRACHIAL VEIN. GI Bleed Scan Nuclear Medicine 10/16/16 14:23 IMPRESSION: Positive for active GI bleeding in the proximal colon. Assessment & Plan - Diagnosis (1) GI bleed Qualifiers: GI bleed type/associated pathology: unspecified gastrointestinal hemorrhage type Qualified Code(s): K92.2 - Gastrointestinal hemorrhage, unspecified Is this a current diagnosis for this admission?: YesPlan: The patient continues to bleed. The family has agreed to no further blood transfusions. The patient has been seen by surgery and have agreed to conservative management. This is most likely chronic and may spontaneously resolve or ultimately lead to mortality. The family is aware of this. Will consult palliative management. (2) Acute blood loss anemia Is this a current diagnosis for this admission?: YesPlan: Status post transfusion secondary to surgical losses. Do feel the patient most likely has underlying iron deficiency anemia from poor by mouth intake. The patient will continue with oral iron supplements. Will discontinue NSAIDS. (3) Hemorrhagic shock Is this a current diagnosis for this admission?: YesPlan: The patient is no longer on pressors and has been transfused 10 units of packed red blood cells. Currently awaiting palliative care input. (4) Bimalleolar fracture of right ankle Qualifiers: Encounter type: subsequent encounter Fracture type: closed Fracture healing: with delayed healing Qualified Code(s): S82.841G - Displaced bimalleolar fracture of right lower leg, subsequent encounter for closed fracture with delayed healing Is this a current diagnosis for this admission?: YesPlan: Status post repair. The patient went to the OR with Dr. Easley for debridement. (5) Staphylococcus aureus bacteremia Is this a current diagnosis for this admission?: YesPlan: Transitioned antibiotic coverage to Ancef. Repeat cultures are negative. Is to have long-term abx as per ID recommendation. (6) Sepsis Qualifiers: Sepsis type: sepsis due to unspecified organism Qualified Code(s): A41.9 - Sepsis, unspecified organism Is this a current diagnosis for this admission?: YesPlan: Resolved (7) Generalized weakness Is this a current diagnosis for this admission?: YesPlan: This continued to progress (8) TIA (transient ischemic attack) Qualifiers: Transient cerebral ischemia type: unspecified Qualified Code(s): G45.9 - Transient cerebral ischemic attack, unspecified Is this a current diagnosis for this admission?: YesPlan: CTA is negative (9) Hypertension Qualifiers: Hypertension type: essential hypertension Qualified Code(s): I10 - Essential (primary) hypertension Is this a current diagnosis for this admission?: YesPlan: Will continue home medications. (10) Diastolic CHF Qualifiers: Congestive heart failure chronicity: chronic Qualified Code(s): I50.32 - Chronic diastolic (congestive) heart failure Is this a current diagnosis for this admission?: YesPlan: The patient appears optivolemic - Time Time Spent with patient: 25-34 minutes Medications reviewed and adjusted accordingly: Yes Disposition: The patient is a DNR/DNI
--- NOTE | 2016-10-20 16:49 | Palliative Consultation Report ---
Consultation From:: MOOKIE JOHNSTON Consult Reason: Palliative care consult - HPI HPI: Appreciate consult request with this 89 year old woman who was admitted on 10/05 for infection and deconditioning. She had suffered a fall in July with fracture of her ankle. She was at home with her daughter living with her. They family noticed a general decline in strength, eating , drinking and even some facial drooping at home and brought her to ER. She was admitted and was noted to have low hemoglobin on admission. During her hospital course, she has had surgery on her ankle to remove hardware and has had IV antibiotics. Soon after surgery, however, she did start having some lower GI bleeding and had required multiple transfusions. Mrs. Patterson has history of colon cancer ( family says in the ), but it is not known that the current bleeding has any relation to the cancer or surgery performed at that time. Given her frail state, severely decreased appetite and generalized weakness, further work-up has been declined by the family. Patient is alert and oriented and says she wants to go home. She has five daughters and a son in the area and the family is trying to decide if they can take care of her at home. They already have DME in the home ( hospital bed , BSC, etc). However, each child has limitations due to physical problems and there is some concern that the manual care required in turning and bathing may be difficult for them. They are not interested in the hospice care center in [place] at this time due to distance. Patient denies pain at present. She says she feels pretty good. She has been taking oxycodone which is crushed and she swallows easily, reporting that this controls her pain and she has no nausea. We did discuss that hospice can help them with caring for her at home and supporting them emotionally. They have had one other family member who had hospice at home and were pleased. The other option of SNF placement was also discussed and at least one daughter is in favor of placement. Onset: Other Onset/Duration: Gradual Quality of Pain: Dull Severity: Mild Pain Level: 1 Associated Symptoms: Weakness Exacerbated by: Movement Relieved by: Remaining still Past Medical History(Consults) - General Information Source: Patient, Relative, [facility] Records Home Medications: Alendronate Sodium [Fosamax] 70 mg PO WE@1000 10/05/16 Aspirin [Adult Low Dose Aspirin EC] 81 mg PO DAILY 10/05/16 Calcium Carbonate [Calcium] 600 mg PO DAILY 10/05/16 Fluticasone Propionate [Flonase Nasal [place] 50 Mcg/[place] 16 gm] 2 sprays NAREB DAILYP PRN 10/05/16 Hydrochlorothiazide [Hydrodiuril 25 mg Tablet] 25 mg PO DAILY 10/05/16 Meloxicam [Mobic 7.5 Mg Tablet] 7.5 mg PO DAILY 10/05/16 Metoprolol Succinate 50 mg PO DAILY 10/05/16 Tramadol HCl [Ultram 50 mg Tablet] 50 mg PO TIDP PRN 10/05/16 Allergies/Adverse Reactions: No Known Allergies Allergy (Verified 09/25/16 22:04) - Social History Lives with: Family Family History: Reviewed & Not Pertinent, Hypertension Parental Family History Reviewed: No Children Family History Reviewed: No Sibling(s) Family History Reviewed.: No Smoking Status: Never Smoker Frequency of Alcohol Use: None Hx Recreational Drug Use: No Hx Prescription Drug Abuse: No - Past Medical History Cardiac Medical History: Reports: Hx Hypercholesterolemia, Hx Hypertension Denies: Hx Coronary Artery Disease, Hx Heart Attack Pulmonary Medical History: Denies: Hx Asthma, Hx Bronchitis, Hx COPD, Hx Pneumonia Neurological Medical History: Reports: Other - Multiple TIAs. Denies: Hx Cerebrovascular Accident, Hx Seizures Endocrine Medical History: Reports: None Renal/ History Note: Left nephrectomy for cancer Malignancy Medical History: Reports: Hx Colorectal Cancer, Hx Renal (Kidney) Cancer GI Medical History: Reports: Hx Gastroesophageal Reflux Disease Musculoskeltal Medical History: Reports Hx Arthritis - OA Musculoskeltal History Note: Fracture right ankle Aug 07, 2016 Psychiatric Medical History: Reports: Hx Depression Hematology: Denies: Anemia - Surgical History Past Surgical History: Reports: Hx Bowel Surgery - Colon resection for colon cancer, Hx Section - x 2, Hx Kidney (Renal Surgery) - Left nephrectomy for cancer, Hx Orthopedic Surgery - Right ankle ORIF. Subsequent hardware removal/I&D., Other - Right colectomy. Left nephrectomy.. Denies: Hx Hysterectomy Review of systems Constitutional: Malaise, Weakness, Weight loss Cardiovascular: Dyspnea Gastrointestinal: Rectal bleeding Geniturinary: No symptoms reported Musculoskeltal: Joint pain Hematologic/Lymphatic: Anemia Ojective:Exam Vital Signs: Temp Pulse Resp BP Pulse Ox 98.3 F 61 16 106/54 L 100 10/20/16 12:05 10/20/16 14:00 10/20/16 12:05 10/20/16 12:05 10/20/16 12:05 Intake & Output 10/19/16 10/20/16 10/21/16 06:59 06:59 06:59 Intake Total 1645 715 50 Output Total 400 600 400 Balance 1245 115 -350 Weight 58 kg - General General Appearance: Alert In distress: None Note:: Awake, alert, answers questions appropriately. Denies pain. Aware of discussion regarding her care and her medical problems. - HEENT Head: Normocephalic Eyes: Normal, Pale conjunctiva Pupils: PERRLA - Respiratory Respiratory Status: No respiratory distress Breath sounds: Clear - Cardiovascular Rhythm: Regular - Skin Skin Temperature: Warm Skin Moisture: Dry Objective-Diagnostic Laboratory: 10/20/16 05:03 10/18/16 06:35 10/20/16 10/20/16 05:03 07:59 WBC 8.8 RBC 2.50 L Hgb 7.4 L Hct 21.8 L MCV 87 MCH 29.4 MCHC 33.8 RDW 16.1 H Plt Count 203 Seg Neutrophils % 70.6 Lymphocytes % 11.1 L Monocytes % 15.3 H Eosinophils % 2.6 Basophils % 0.4 Absolute Neutrophils 6.2 Absolute Lymphocytes 1.0 Absolute Monocytes 1.3 Absolute Eosinophils 0.2 Absolute Basophils 0.0 Blood Type Cancelled Antibody Screen Cancelled 10/16/16 11:50 Stool - Colonic Wash (Surgical) Ova and Parasite Concentrate Exam - Final 10/16/16 11:50 Stool - Colonic Wash (Surgical) Ova and Parasites - Final 10/16/16 11:50 Stool - Colonic Wash (Surgical) Ova and Parasites - Final Plan and Recommendation Plan and Recommendation: Patient does want to go home, of course. However, I talked with four of her daughters in the presence of the patient and there seems to be some hesitation that they can provide comfort care for her at home with their various physical problems and other responsibilities. We discussed hospice care center, but they feel that it is too far away. They may consider home with hospice and I told them I will ask [facility] RN liason to come talk with them about services, but I described hospice services and told them they have choices of hospice agencies in this area. The option of care center would still be open if they chose home hospice. Also discussed placement in SNF and Medicare coverage if skilled for rehab. However, we had discussion that rehab at this point is not likely given the severity of her condition and her likely continued decline. They are aware of this and seem to realize that care may not be needed for an extended period given her frequency of need for blood recently and her inability to eat/drink. No symptoms are present to address at this time. Patient is comfortable. Appreciate opportunity to assist with care and discuss with this family. Hopefully they will feel comfortable to take patient home for her end of life care. Will follow along with hospice liason. - Time Spent with Patient Time spent with patient: 30 to 40 Minutes Greater then 50% spent on Counseling & Coordination of Care: Total 80 min, 45 min with family and patient.
[2016-10-20] MEDS: ATORVASTATIN CALCIUM 80 MG TABLET PO SCH (21:50)
[2016-10-21] MEDS: ACETAMINOPHEN 325 MG TABLET PO SCH ×5 (00:22→23:53)
[2016-10-21] MEDS: SUCRALFATE SUSP 1 GM/10 ML UDCUP PO SCH ×4 (08:41→21:35)
[2016-10-21] MEDS: FERROUS SULFATE LIQUID 300 MG/5 ML UDC PO SCH ×2 (10:23→18:41)
[2016-10-21] MEDS: METOPROLOL SUCCINATE 50 MG TAB.SR.24H PO SCH (10:23)
[2016-10-21] MEDS: LACTOBACILLUS ACIDOPHILUS 250 MG TAB PO SCH ×2 (10:23→18:41)
[2016-10-21] MEDS: DOCUSATE SODIUM 100 MG CAPSULE PO SCH ×2 (10:23→18:41)
[2016-10-21] MEDS: OXYCODONE-ACETAMINOPHEN 5-325 MG TABLET PO PRN ×2 (11:15→23:53)
[2016-10-21] MEDS ORDERED: ONDANSETRON 4 MG TAB.RAPDIS PO PRN (12:54)
[2016-10-21] MEDS: NORMAL SALINE 10 ML SDV (SCHEDULED) IV SCH ×2 (14:00→21:36)
[2016-10-21] MEDS: ONDANSETRON HCL INJ/PF 4 MG/2 ML SDV IV PRN (14:00)
--- NOTE | 2016-10-21 15:11 | PDOC PROGRESS REPORT ---
Subjective Progress Note for:: 10/21/16 Subjective:: The patient has had a steady state of decline since my last visit. The patient will barely arouse. The patient has had nausea with vomiting. Facial droop does appear more prominent. The patient has not eaten at all today. Labs have been stopped. I was notified by the access liaison that the family has agreed to hospice. If she makes it, The patient can be admitted to the facility Wednesday morning. Physical Exam Vital Signs: Temp Pulse Resp BP Pulse Ox 99.0 F 72 16 116/62 100 10/21/16 07:12 10/21/16 07:12 10/21/16 07:12 10/21/16 07:12 10/21/16 07:12 Intake & Output 10/19/16 10/20/16 10/21/16 23:59 23:59 23:59 Intake Total 1650 270 140 Output Total 400 074 8618 Balance 1300 -530 -860 Weight 58 kg 65.9 kg General appearance: PRESENT: disheveled, thin Head exam: PRESENT: atraumatic, normocephalic Eye exam: PRESENT: conjunctiva pale. ABSENT: scleral icterus Ear exam: PRESENT: normal external ear exam Mouth exam: PRESENT: moist, tongue midline, other - Facial droop Neck exam: ABSENT: JVD, tracheal deviation, tracheostomy Respiratory exam: PRESENT: decreased breath sounds, symmetrical, unlabored. ABSENT: rales, rhonchi, tachypnea, wheezes Cardiovascular exam: PRESENT: RRR. ABSENT: diastolic murmur, rubs, systolic murmur Pulses: PRESENT: normal dorsalis pedis pul Vascular exam: PRESENT: pallor GI/Abdominal exam: PRESENT: normal bowel sounds, soft. ABSENT: distended, guarding, mass, organolmegaly, rebound, tenderness Rectal exam: PRESENT: deferred Extremities exam: PRESENT: other - Anasarca edema. ABSENT: calf tenderness, clubbing Neurological exam: PRESENT: alert - Delayed, oriented to person, oriented to place Psychiatric exam: PRESENT: flat affect. ABSENT: homicidal ideation, suicidal ideation Skin exam: PRESENT: dry, intact, warm. ABSENT: cyanosis, rash Results Laboratory Results: 10/20/16 05:03 10/18/16 06:35 10/16/16 11:50 Stool - Colonic Wash (Surgical) Ova and Parasite Concentrate Exam - Final 10/16/16 11:50 Stool - Colonic Wash (Surgical) Ova and Parasites - Final 10/16/16 11:50 Stool - Colonic Wash (Surgical) Ova and Parasites - Final Impressions: Chest X-Ray 10/05/16 15:14 IMPRESSION: No acute abnormality in the chest. Head CT 10/05/16 15:14 IMPRESSION: CHRONIC CHANGES OF ATROPHY AND MICROVASCULAR ISCHEMIA. NO ACUTE PROCESS. Ankle X-Ray 10/05/16 15:29 IMPRESSION: Interval ORIF ankle fracture dislocation. No evidence of postoperative complication. Head CTA 10/06/16 00:00 IMPRESSION: NO CTA EVIDENCE OF STENOSIS OR ANEURYSM OF THE [place]. Carotid Doppler Study 10/06/16 11:41 IMPRESSION: No flow significant stenosis at the right carotid bifurcation. 50 to 69% diameter stenosis left proximal ICA at the carotid bifurcation based on velocity criteria Fluoroscopy 10/08/16 00:00 IMPRESSION: IMAGE(S) OBTAINED DURING PROCEDURE. Foot X-Ray 10/08/16 00:00 IMPRESSION: IMAGE(S) OBTAINED DURING PROCEDURE. Guidance Fluoroscopy 10/14/16 00:00 IMPRESSION: SUCCESSFUL PLACEMENT OF A 5 FR DUAL LUMEN 37 CM PICC IN THE LEFT BRACHIAL VEIN. Interventional Vascular Procedure 10/14/16 00:00 IMPRESSION: SUCCESSFUL PLACEMENT OF A 5 FR DUAL LUMEN 37 CM PICC IN THE LEFT BRACHIAL VEIN. PICC Line Insertion 10/14/16 00:00 IMPRESSION: SUCCESSFUL PLACEMENT OF A 5 FR DUAL LUMEN 37 CM PICC IN THE LEFT BRACHIAL VEIN. GI Bleed Scan Nuclear Medicine 10/16/16 14:23 IMPRESSION: Positive for active GI bleeding in the proximal colon. Assessment & Plan - Diagnosis (1) GI bleed Qualifiers: GI bleed type/associated pathology: unspecified gastrointestinal hemorrhage type Qualified Code(s): K92.2 - Gastrointestinal hemorrhage, unspecified Is this a current diagnosis for this admission?: YesPlan: The patient continues to bleed. The family has agreed to no further blood transfusions. The patient has been seen by surgery and have agreed to palliative management. This is most likely chronic and may spontaneously resolve or ultimately lead to mortality. The patient is to be admitted to hospice on Wednesday. (2) Acute blood loss anemia Is this a current diagnosis for this admission?: YesPlan: Status post transfusion secondary to surgical losses. Do feel the patient most likely has underlying iron deficiency anemia from poor by mouth intake. The patient will continue with oral iron supplements. Have discontinue NSAIDS. (3) Hemorrhagic shock Is this a current diagnosis for this admission?: YesPlan: The patient has been transitioned to comfort care. (4) Bimalleolar fracture of right ankle Qualifiers: Encounter type: subsequent encounter Fracture type: closed Fracture healing: with delayed healing Qualified Code(s): S82.841G - Displaced bimalleolar fracture of right lower leg, subsequent encounter for closed fracture with delayed healing Is this a current diagnosis for this admission?: YesPlan: Status post repair. The patient went to the OR with Dr. Easley for debridement. (5) Staphylococcus aureus bacteremia Is this a current diagnosis for this admission?: YesPlan: Transitioned antibiotic coverage to Ancef. Repeat cultures are negative. (6) Sepsis Qualifiers: Sepsis type: sepsis due to unspecified organism Qualified Code(s): A41.9 - Sepsis, unspecified organism Is this a current diagnosis for this admission?: YesPlan: Resolved (7) Generalized weakness Is this a current diagnosis for this admission?: YesPlan: This continued to progress (8) TIA (transient ischemic attack) Qualifiers: Transient cerebral ischemia type: unspecified Qualified Code(s): G45.9 - Transient cerebral ischemic attack, unspecified Is this a current diagnosis for this admission?: YesPlan: CTA is negative (9) Hypertension Qualifiers: Hypertension type: essential hypertension Qualified Code(s): I10 - Essential (primary) hypertension Is this a current diagnosis for this admission?: YesPlan: Will continue home medications. (10) Diastolic CHF Qualifiers: Congestive heart failure chronicity: chronic Qualified Code(s): I50.32 - Chronic diastolic (congestive) heart failure Is this a current diagnosis for this admission?: Yes - Time Time Spent with patient: 25-34 minutes Medications reviewed and adjusted accordingly: Yes Anticipated discharge: Hospice Within: within 48 hours Disposition: The patient is a DNR/DNI with palliative management only.
[2016-10-21] MEDS: DEXTROSE 50%-WATER 25 GM/50 ML DISP.SYRIN IV PRN ×2 (16:24→22:15)
[2016-10-21] MEDS: ATORVASTATIN CALCIUM 80 MG TABLET PO SCH (21:35)
[2016-10-22] MEDS: DEXTROSE 50%-WATER 25 GM/50 ML DISP.SYRIN IV PRN (02:27)
[2016-10-22] MEDS: OXYCODONE-ACETAMINOPHEN 5-325 MG TABLET PO PRN (04:03)
[2016-10-22] MEDS: ACETAMINOPHEN 325 MG TABLET PO SCH ×4 (05:55→23:53)
[2016-10-22] MEDS: SUCRALFATE SUSP 1 GM/10 ML UDCUP PO SCH ×4 (10:12→21:41)
[2016-10-22] MEDS: LACTOBACILLUS ACIDOPHILUS 250 MG TAB PO SCH ×2 (10:12→17:21)
[2016-10-22] MEDS: FERROUS SULFATE LIQUID 300 MG/5 ML UDC PO SCH ×2 (10:12→17:21)
[2016-10-22] MEDS: METOPROLOL SUCCINATE 50 MG TAB.SR.24H PO SCH (10:13)
[2016-10-22] MEDS: DOCUSATE SODIUM 100 MG CAPSULE PO SCH ×2 (10:13→17:21)
[2016-10-22] MEDS: ONDANSETRON HCL INJ/PF 4 MG/2 ML SDV IV PRN ×2 (10:18→17:11)
[2016-10-22] MEDS: NORMAL SALINE 10 ML SDV (SCHEDULED) IV SCH ×2 (10:34→21:41)
--- NOTE | 2016-10-22 13:29 | PDOC PROGRESS REPORT ---
Subjective Progress Note for:: 10/22/16 Subjective:: The patient has had a steady state of decline. The patient did not arouse. The patient has had nausea with vomiting. Facial droop persists. The patient has not eaten at all today. Labs have been stopped. I was notified by the machine accountant that the family has agreed to hospice. If she makes it, The patient can be admitted to the facility Tee morning. Physical Exam Vital Signs: Temp Pulse Resp BP Pulse Ox 99.0 F 72 16 113/54 L 100 10/22/16 07:46 10/22/16 07:46 10/22/16 07:46 10/22/16 07:46 10/22/16 07:46 Intake & Output 10/20/16 10/21/16 10/22/16 23:59 23:59 23:59 Intake Total 270 520 180 Output Total 800 1600 1200 Balance -530 -1080 -1020 Weight 65.9 kg General appearance: PRESENT: disheveled, thin Head exam: PRESENT: atraumatic, normocephalic Eye exam: PRESENT: conjunctiva pale. ABSENT: scleral icterus Ear exam: PRESENT: normal external ear exam Mouth exam: PRESENT: moist, tongue midline, other - Facial droop Neck exam: ABSENT: JVD, tracheal deviation, tracheostomy Respiratory exam: PRESENT: decreased breath sounds, symmetrical, unlabored. ABSENT: rales, rhonchi, tachypnea, wheezes Cardiovascular exam: PRESENT: RRR. ABSENT: diastolic murmur, rubs, systolic murmur Pulses: PRESENT: normal dorsalis pedis pul Vascular exam: PRESENT: pallor GI/Abdominal exam: PRESENT: normal bowel sounds, soft. ABSENT: distended, guarding, mass, organolmegaly, rebound, tenderness Rectal exam: PRESENT: deferred Extremities exam: PRESENT: other - Anasarca edema. ABSENT: calf tenderness, clubbing Neurological exam: PRESENT: alert - Delayed, oriented to person, oriented to place Psychiatric exam: PRESENT: flat affect. ABSENT: homicidal ideation, suicidal ideation Skin exam: PRESENT: dry, intact, warm. ABSENT: cyanosis, rash Results Laboratory Results: 10/20/16 05:03 10/18/16 06:35 Impressions: Chest X-Ray 10/05/16 15:14 IMPRESSION: No acute abnormality in the chest. Head CT 10/05/16 15:14 IMPRESSION: CHRONIC CHANGES OF ATROPHY AND MICROVASCULAR ISCHEMIA. NO ACUTE PROCESS. Ankle X-Ray 10/05/16 15:29 IMPRESSION: Interval ORIF ankle fracture dislocation. No evidence of postoperative complication. Head CTA 10/06/16 00:00 IMPRESSION: NO CTA EVIDENCE OF STENOSIS OR ANEURYSM OF THE [place]. Carotid Doppler Study 10/06/16 11:41 IMPRESSION: No flow significant stenosis at the right carotid bifurcation. 50 to 69% diameter stenosis left proximal ICA at the carotid bifurcation based on velocity criteria Fluoroscopy 10/08/16 00:00 IMPRESSION: IMAGE(S) OBTAINED DURING PROCEDURE. Foot X-Ray 10/08/16 00:00 IMPRESSION: IMAGE(S) OBTAINED DURING PROCEDURE. Guidance Fluoroscopy 10/14/16 00:00 IMPRESSION: SUCCESSFUL PLACEMENT OF A 5 FR DUAL LUMEN 37 CM PICC IN THE LEFT BRACHIAL VEIN. Interventional Vascular Procedure 10/14/16 00:00 IMPRESSION: SUCCESSFUL PLACEMENT OF A 5 FR DUAL LUMEN 37 CM PICC IN THE LEFT BRACHIAL VEIN. PICC Line Insertion 10/14/16 00:00 IMPRESSION: SUCCESSFUL PLACEMENT OF A 5 FR DUAL LUMEN 37 CM PICC IN THE LEFT BRACHIAL VEIN. GI Bleed Scan Nuclear Medicine 10/16/16 14:23 IMPRESSION: Positive for active GI bleeding in the proximal colon. Assessment & Plan - Diagnosis (1) GI bleed Qualifiers: GI bleed type/associated pathology: unspecified gastrointestinal hemorrhage type Qualified Code(s): K92.2 - Gastrointestinal hemorrhage, unspecified Is this a current diagnosis for this admission?: YesPlan: The patient continues to bleed. The family has agreed to no further blood transfusions. The patient has been seen by surgery and have agreed to palliative management. This is most likely chronic and may spontaneously resolve or ultimately lead to mortality. The patient is to be admitted to hospice on Wednesday. (2) Acute blood loss anemia Is this a current diagnosis for this admission?: YesPlan: Status post transfusion secondary to surgical losses. Do feel the patient most likely has underlying iron deficiency anemia from poor by mouth intake. The patient will continue with oral iron supplements. Have discontinue NSAIDS. (3) Hemorrhagic shock Is this a current diagnosis for this admission?: YesPlan: The patient has been transitioned to comfort care. (4) Bimalleolar fracture of right ankle Qualifiers: Encounter type: subsequent encounter Fracture type: closed Fracture healing: with delayed healing Qualified Code(s): S82.841G - Displaced bimalleolar fracture of right lower leg, subsequent encounter for closed fracture with delayed healing Is this a current diagnosis for this admission?: YesPlan: Status post repair. The patient went to the OR with Dr. Easley for debridement. (5) Staphylococcus aureus bacteremia Is this a current diagnosis for this admission?: YesPlan: Transitioned antibiotic coverage to Ancef. Repeat cultures are negative. (6) Sepsis Qualifiers: Sepsis type: sepsis due to unspecified organism Qualified Code(s): A41.9 - Sepsis, unspecified organism Is this a current diagnosis for this admission?: YesPlan: Resolved (7) Generalized weakness Is this a current diagnosis for this admission?: YesPlan: This continued to progress (8) TIA (transient ischemic attack) Qualifiers: Transient cerebral ischemia type: unspecified Qualified Code(s): G45.9 - Transient cerebral ischemic attack, unspecified Is this a current diagnosis for this admission?: YesPlan: CTA is negative (9) Hypertension Qualifiers: Hypertension type: essential hypertension Qualified Code(s): I10 - Essential (primary) hypertension Is this a current diagnosis for this admission?: YesPlan: Will continue home medications. (10) Diastolic CHF Qualifiers: Congestive heart failure chronicity: chronic Qualified Code(s): I50.32 - Chronic diastolic (congestive) heart failure Is this a current diagnosis for this admission?: YesPlan: The patient appears optivolemic - Time Time Spent with patient: 25-34 minutes Medications reviewed and adjusted accordingly: Yes Anticipated discharge: Hospice Within: within 24 hours
--- NOTE | 2016-10-22 14:32 | Progress Note ---
Provider Note Provider Note: Brief follow up visit with patient and her daughter. Patient asleep and looks very frail at present. Daughter states that she occasionally awakens and speaks to them. No food intake for few days. Patient does not complain of pain and no evidence pain noted by family. Respirations are shallow but unlabored and not congested. Family is planning to take patient home with hospice in the morning., to honor her wishes to at home. They have all equipment needed. Support offered. No needs at present.
[2016-10-22] MEDS: ATORVASTATIN CALCIUM 80 MG TABLET PO SCH (21:41)
[2016-10-23] MEDS: ACETAMINOPHEN 325 MG TABLET PO SCH (05:38)
[2016-10-23 14:36] VITALS: BP 123/55
--- NOTE | 2016-10-23 15:04 | PDOC DISCHARGE SUMMARY ---
General - Admit/Disc Date/PCP Admission Date/Primary Care Provider: 10/06/16 01:03 JOSEPHINE LIGN PA-C Discharged to [facility] Discharge Date: 10/23/16 - Discharge Diagnosis (1) GI bleed Is this a current diagnosis for this admission?: Yes (2) Acute blood loss anemia Is this a current diagnosis for this admission?: Yes (3) Hemorrhagic shock Is this a current diagnosis for this admission?: Yes (4) Bimalleolar fracture of right ankle Is this a current diagnosis for this admission?: Yes (5) Staphylococcus aureus bacteremia Is this a current diagnosis for this admission?: Yes (6) Sepsis Is this a current diagnosis for this admission?: Yes (7) Generalized weakness Is this a current diagnosis for this admission?: Yes (8) TIA (transient ischemic attack) Is this a current diagnosis for this admission?: Yes (9) Hypertension Is this a current diagnosis for this admission?: Yes (10) Diastolic CHF Is this a current diagnosis for this admission?: Yes - Additional Information Resuscitation Status: Full Code Discharge Diet: As Tolerated Discharge Activity: Activity As Tolerated Home Medications: Alendronate Sodium [Fosamax] 70 mg PO WE@1000 10/05/16 Aspirin [Adult Low Dose Aspirin EC] 81 mg PO DAILY 10/05/16 Calcium Carbonate [Calcium] 600 mg PO DAILY 10/05/16 Fluticasone Propionate [Flonase Nasal Gramp[place] 50 Mcg/Grampian 16 gm] 2 sprays NAREB DAILYP PRN 10/05/16 Hydrochlorothiazide [Hydrodiuril 25 mg Tablet] 25 mg PO DAILY 10/05/16 Meloxicam [Mobic 7.5 Mg Tablet] 7.5 mg PO DAILY 10/05/16 Metoprolol Succinate 50 mg PO DAILY 10/05/16 Tramadol HCl [Ultram 50 mg Tablet] 50 mg PO TIDP PRN 10/05/16 History of Present Illness Patient complains of: Right ankle pain and fatigue History of Present Illness: ERIC BRANHAM is a 89 year old female with a past medical history of cerebral vascular disease, hypertension, osteoporosis and recent right ankle fracture, who'd been her usual state of health until approximately 3 weeks ago having persistent pain to her right ankle following fixation, unable to bear weight subjective fever and chills, poor appetite and fatigue. In the emergency room she has a unremarkable physical exam with exception to the right ankle mild leukocytosis of 13, platelets of 700,000 and an ESR 117. She receives IV fluids and vancomycin referred to the hospitalist for admission. Hospital Course Hospital Course: The patient was admitted to [facility]. The patient was seen and evaluated by Dr. Easley the patient was found to have findings consistent with infected hardware including oozing from the site as well as elevated sedimentation rate and white count. Patient was taken to the OR for hardware removal and repair. The patient was noted to have a MSSA bacteremia. Recommendations were made by infectious disease to complete 6 weeks of IV antibiotics and therefore PICC line was placed. Postoperatively the patient developed anemia and was typed and crossed. The patient's hemoglobin continued to trend down slowly and then the patient developed right GI bleeding in her stool. The patient was transfuse a total of 10 units of packed red blood cells. The patient was seen and evaluated by Dr. English and the patient underwent workup which was nonconclusive. The patient had a bleeding scan was suggestive of a small bowel bleed. During the patient's stay she was noted to have a prominent left-sided facial droop for which the patient stated have been consistent for over 2 weeks. The patient's carotid Dopplers were suggestive of stenosis. The patient's brain imaging did not reveal an acute infarction but did have elevated of older infarcts. The patient continued to exhibit symptoms of failure to thrive including limited to no by mouth intake, weakness, and minimal responsiveness. The patient and family were seen and evaluated by palliative care. And after much consideration the family has elected to proceed with comfort measures on hospice. Physical Exam Vital Signs: Temp Pulse Resp BP Pulse Ox 99 F 87 16 123/55 L 97 10/23/16 09:00 10/23/16 09:00 10/23/16 09:00 10/23/16 09:00 10/23/16 09:00 Intake & Output 10/21/16 10/22/16 10/23/16 23:59 23:59 23:59 Intake Total 520 285 20 Output Total 1600 1400 500 Balance -3863 -1115 -480 Weight 65.9 kg General appearance: PRESENT: disheveled, thin Head exam: PRESENT: atraumatic, normocephalic Eye exam: PRESENT: conjunctiva pale. ABSENT: scleral icterus Ear exam: PRESENT: normal external ear exam Mouth exam: PRESENT: moist, tongue midline, other - Facial droop Neck exam: ABSENT: JVD, tracheal deviation, tracheostomy Respiratory exam: PRESENT: decreased breath sounds, symmetrical, unlabored. ABSENT: rales, rhonchi, tachypnea, wheezes Cardiovascular exam: PRESENT: RRR. ABSENT: diastolic murmur, rubs, systolic murmur Pulses: PRESENT: normal dorsalis pedis pul Vascular exam: PRESENT: pallor GI/Abdominal exam: PRESENT: normal bowel sounds, soft. ABSENT: distended, guarding, mass, organolmegaly, rebound, tenderness Rectal exam: PRESENT: deferred Extremities exam: PRESENT: other - Anasarca edema. ABSENT: calf tenderness, clubbing Neurological exam: PRESENT: alert - Delayed, oriented to person, oriented to place Psychiatric exam: PRESENT: flat affect. ABSENT: homicidal ideation, suicidal ideation Skin exam: PRESENT: dry, intact, warm. ABSENT: cyanosis, rash Results Laboratory Results: Labs- Last Values WBC 8.8 10^3/uL (4.0-10.5) 10/20/16 05:03 RBC 2.50 10^6/uL (3.72-5.28) L 10/20/16 05:03 Hgb 7.4 g/dL (12.0-15.5) L 10/20/16 05:03 Hct 21.8 % (36.0-47.0) L 10/20/16 05:03 MCV 87 fl (80-97) 10/20/16 05:03 MCH 29.4 pg (27.0-33.4) 10/20/16 05:03 MCHC 33.8 g/dL (32.0-36.0) 10/20/16 05:03 RDW 16.1 % (11.5-14.0) H 10/20/16 05:03 Plt Count 203 10^3/uL (150-450) 10/20/16 05:03 Total Counted 100 10/08/16 05:41 Seg Neutrophils % 70.6 % (42-78) 10/20/16 05:03 Seg Neuts % (Manual) 74 % (42-78) 10/08/16 05:41 Band Neutrophils % 7 % (3-5) H 10/08/16 05:41 Lymphocytes % 11.1 % (13-45) L 10/20/16 05:03 Lymphocytes % (Manual) 11 % (13-45) L 10/08/16 05:41 Monocytes % 15.3 % (3-13) H 10/20/16 05:03 Monocytes % (Manual) 6 % (3-13) 10/08/16 05:41 Eosinophils % 2.6 % (0-6) 10/20/16 05:03 Eosinophils % (Manual) 2 % (0-6) 10/08/16 05:41 Basophils % 0.4 % (0-2) 10/20/16 05:03 Basophils % (Manual) 0 % (0-2) 10/08/16 05:41 Absolute Neutrophils 6.2 10^3/uL (1.7-8.2) 10/20/16 05:03 Abs Neuts (Manual) 12.8 10^3/uL (1.7-8.2) H 10/08/16 05:41 Absolute Lymphocytes 1.0 10^3/uL (0.5-4.7) 10/20/16 05:03 Abs Lymphs (Manual) 1.7 10^3/uL (0.5-4.7) 10/08/16 05:41 Absolute Monocytes 1.3 10^3/uL (0.1-1.4) 10/20/16 05:03 Abs Monocytes (Manual) 0.9 10^3/uL (0.1-1.4) 10/08/16 05:41 Absolute Eosinophils 0.2 10^3/uL (0.0-0.6) 10/20/16 05:03 Absolute Eos (Manual) 0.3 10^3/uL (0.0-0.6) 10/08/16 05:41 Absolute Basophils 0.0 10^3/uL (0.0-0.2) 10/20/16 05:03 Abs Basophils (Manual) 0.0 10^3/uL (0.0-0.2) 10/08/16 05:41 Toxic Granulation SLIGHT 10/07/16 19:30 Toxic Vacuolation PRESENT 10/07/16 05:42 Platelet Comment ADEQUATE 10/08/16 05:41 Polychromasia SLIGHT 10/08/16 05:41 Hypochromasia 1+ 10/08/16 05:41 Poikilocytosis 1+ 10/08/16 05:41 Anisocytosis 2+ 10/07/16 19:30 Microcytosis SLIGHT 10/07/16 19:30 Target Cells SLIGHT 10/07/16 05:42 Tear Drop Cells SLIGHT 10/07/16 05:42 Ovalocytes 1+ 10/08/16 05:41 ESR 117 mm/hr (0-30) H 10/05/16 15:36 Retic Count (auto) 0.82 % (0.66-2.85) 10/08/16 05:41 Absolute Retic 0.029 10^6/uL (0.028-0.122) 10/08/16 05:41 PT 17.8 SEC (11.4-15.4) H 10/18/16 06:35 INR 1.41 10/18/16 06:35 APTT 42.4 SEC (23.5-35.8) H 10/16/16 14:42 Sodium 138.3 mmol/L (137-145) 10/18/16 06:35 Potassium 3.8 mmol/L (3.6-5.0) 10/18/16 06:35 Chloride 119 mmol/L (98-107) H 10/18/16 06:35 Carbon Dioxide 14 mmol/L (22-30) L 10/18/16 06:35 Anion Gap 5 (5-19) 10/18/16 06:35 BUN 13 mg/dL (7-20) 10/18/16 06:35 Creatinine 0.81 mg/dL (0.52-1.25) 10/18/16 06:35 Est GFR ( Amer) > 60 (>60) 10/18/16 06:35 Est GFR (Non-Af Amer) > 60 (>60) 10/18/16 06:35 Glucose 64 mg/dL (75-110) L 10/18/16 06:35 POC Glucose 76 mg/dL (70-110) 10/22/16 11:12 Lactic Acid 0.8 mmol/L (0.7-2.1) 10/16/16 22:15 Uric Acid 8.4 mg/dL (2.5-7.5) H 10/05/16 15:36 Calcium 6.9 mg/dL (8.4-10.2) L* 10/18/16 06:35 Magnesium 1.3 mg/dL (1.6-2.3) L 10/16/16 05:39 Iron < 10 ug/dL (37-170) L 10/08/16 05:41 TIBC 124 ug/dL (250-450) L 10/08/16 05:41 % Saturation UNABLE TO CALCULATE % (15% - 50%) 10/08/16 05:41 Transferrin 70 mg/dL (200-370) L 10/08/16 05:41 Ferritin 563.00 ng/mL (11.1-264.0) H 10/08/16 05:41 Total Bilirubin 0.3 mg/dL (0.2-1.3) 10/18/16 06:35 Direct Bilirubin 0.0 mg/dL (0.0-0.3) 10/18/16 06:35 AST 23 U/L (14-36) 10/18/16 06:35 ALT 19 U/L (9-52) 10/18/16 06:35 Alkaline Phosphatase 72 U/L (38-126) 10/18/16 06:35 Creatine Kinase 67 U/L (30-135) 10/05/16 15:36 CK-MB (CK-2) 0.66 ng/mL (<4.55) 10/05/16 15:36 Troponin I < 0.012 ng/mL 10/05/16 15:36 C-Reactive Protein 539.0 mg/L (<10.0) H 10/05/16 15:36 Total Protein 3.1 g/dL (6.3-8.2) L 10/18/16 06:35 Albumin 1.2 g/dL (3.5-5.0) L 10/18/16 06:35 Vitamin B12 378.0 pg/mL (239-931) 10/08/16 05:41 Folate 7.86 ng/mL (>2.76) 10/08/16 05:41 Urine Color YELLOW 10/05/16 16:12 Urine Appearance CLEAR 10/05/16 16:12 Urine pH 6.0 (5.0-9.0) 10/05/16 16:12 Ur Specific [place] 1.017 10/05/16 16:12 Urine Protein NEGATIVE mg/dL (NEGATIVE) 10/05/16 16:12 Urine Glucose (UA) NEGATIVE mg/dL (NEGATIVE) 10/05/16 16:12 Urine Ketones NEGATIVE mg/dL (NEGATIVE) 10/05/16 16:12 Urine Blood NEGATIVE (NEGATIVE) 10/05/16 16:12 Urine Nitrite NEGATIVE (NEGATIVE) 10/05/16 16:12 Urine Bilirubin NEGATIVE (NEGATIVE) 10/05/16 16:12 Urine Urobilinogen 4.0 mg/dL (<2.0) H 10/05/16 16:12 Ur Leukocyte Esterase NEGATIVE (NEGATIVE) 10/05/16 16:12 Urine WBC (Auto) 1 /HPF 10/05/16 16:12 Urine RBC (Auto) 2 /HPF 10/05/16 16:12 Amorphous Sediment Auto TRACE /HPF 10/05/16 16:12 Urine Ascorbic Acid 40 (NEGATIVE) H 10/05/16 16:12 Stool Occult Blood POSITIVE (NEGATIVE) 10/13/16 23:15 C. difficile Tox (PCR) NEGATIVE (NEGATIVE) 10/16/16 11:50 Blood Type O POSITIVE 10/15/16 04:40 Blood Type Confirm O POSITIVE 10/15/16 04:40 Antibody Screen NEGATIVE 10/15/16 04:40 Crossmatch See Detail 10/20/16 07:59 10/16/16 11:50 Ova and Parasite Concentrate Exam - Final Stool - Colonic Wash (Surgical) Ova and Parasites - Final 10/09/16 13:40 Blood Culture - Final Blood NO GROWTH IN 5 DAYS 10/09/16 11:30 Blood Culture - Final Blood NO GROWTH IN 5 DAYS 10/08/16 16:57 Gram Stain - Final Ankle - Abscess Wound Culture - Final Staphylococcus Aureus No Anaerobic Organisms 10/08/16 06:45 Gram Stain - Final Ankle - Right Side Abscess Wound Culture - Final Staphylococcus Aureus 10/05/16 17:25 Blood Culture - Final Blood Staphylococcus Aureus 10/05/16 15:36 Blood Culture - Final Blood Staphylococcus Aureus Impressions: Chest X-Ray 10/05/16 15:14 IMPRESSION: No acute abnormality in the chest. Head CT 10/05/16 15:14 IMPRESSION: CHRONIC CHANGES OF ATROPHY AND MICROVASCULAR ISCHEMIA. NO ACUTE PROCESS. Ankle X-Ray 10/05/16 15:29 IMPRESSION: Interval ORIF ankle fracture dislocation. No evidence of postoperative complication. Head CTA 10/06/16 00:00 IMPRESSION: NO CTA EVIDENCE OF STENOSIS OR ANEURYSM OF THE [place] OF [place]. Carotid Doppler Study 10/06/16 11:41 IMPRESSION: No flow significant stenosis at the right carotid bifurcation. 50 to 69% diameter stenosis left proximal ICA at the carotid bifurcation based on velocity criteria Fluoroscopy 10/08/16 00:00 IMPRESSION: IMAGE(S) OBTAINED DURING PROCEDURE. Foot X-Ray 10/08/16 00:00 IMPRESSION: IMAGE(S) OBTAINED DURING PROCEDURE. Guidance Fluoroscopy 10/14/16 00:00 IMPRESSION: SUCCESSFUL PLACEMENT OF A 5 FR DUAL LUMEN 37 CM PICC IN THE LEFT BRACHIAL VEIN. Interventional Vascular Procedure 10/14/16 00:00 IMPRESSION: SUCCESSFUL PLACEMENT OF A 5 FR DUAL LUMEN 37 CM PICC IN THE LEFT BRACHIAL VEIN. PICC Line Insertion 10/14/16 00:00 IMPRESSION: SUCCESSFUL PLACEMENT OF A 5 FR DUAL LUMEN 37 CM PICC IN THE LEFT BRACHIAL VEIN. GI Bleed Scan Nuclear Medicine 10/16/16 14:23 IMPRESSION: Positive for active GI bleeding in the proximal colon. Qualifiers PATEINT BEING DISCHARGED WITH ANY OF THE FOLLOWING DIAGNOSIS?: No Plan Discharge Plan: Patient was discharged to hospice.
== END 2016-10-23 09:40 | disposition hospice, home (50) | DRG 853 ==
LOC: ER 14:32 → UNDOADMIN 18:33 → EH 18:33 → 3S 10-06 01:54 → ICU 10-15 05:16 → 3S 10-17 12:16
PROVIDERS: ADMIT Internal Medicine; ATTEND Internal Medicine
PROC: 30233N1 Transfusion of Nonautologous Red Blood Cells into Peripheral Vein, Percutaneous Approach (ICD-10-PCS; principal; 2016-10-07)
PROC: 0SPF04Z Removal of Internal Fixation Device from Right Ankle Joint, Open Approach (ICD-10-PCS; 2016-10-08)
PROC: 02HV33Z Insertion of Infusion Device into Superior Vena Cava, Percutaneous Approach (ICD-10-PCS; 2016-10-14)
PROC: B5181ZA Fluoroscopy of Superior Vena Cava using Low Osmolar Contrast, Guidance (ICD-10-PCS; 2016-10-14)
PROC: B548ZZA Ultrasonography of Superior Vena Cava, Guidance (ICD-10-PCS; 2016-10-14)
PROC: 0DBF8ZX Excision of Right Large Intestine, Via Natural or Artificial Opening Endoscopic, Diagnostic (ICD-10-PCS; 2016-10-16)
PROC: 0DJ08ZZ Inspection of Upper Intestinal Tract, Via Natural or Artificial Opening Endoscopic (ICD-10-PCS; 2016-10-16)
DX: A41.9 Sepsis, unspecified organism (principal); R57.1 Hypovolemic shock; I50.32 Chronic diastolic (congestive) heart failure; Z66 Do not resuscitate; Z51.5 Encounter for palliative care; K92.2 Gastrointestinal hemorrhage, unspecified; G45.9 Transient cerebral ischemic attack, unspecified; D62 Acute posthemorrhagic anemia; M00.9 Pyogenic arthritis, unspecified; K92.1 Melena; S82.841D Displaced bimalleolar fracture of right lower leg, subsequent encounter for closed fracture with routine healing; E78.5 Hyperlipidemia, unspecified; I10 Essential (primary) hypertension; K21.9 Gastro-esophageal reflux disease without esophagitis; J44.9 Chronic obstructive pulmonary disease, unspecified; R29.810 Facial weakness; Z90.49 Acquired absence of other specified parts of digestive tract; Z22.321 Carrier or suspected carrier of Methicillin susceptible Staphylococcus aureus; Z85.038 Personal history of other malignant neoplasm of large intestine
CPT/HCPCS: 00400; 36415; 36430; 36569; 43235; 45380; 70450; 70496; 71020; 76937; 77001; 78278; 80048; 80053; 81001; 82040; 82272; 82550; 82553; 82607; 82728; 82746; 82962; 83540; 83550; 83605; 83735; 84466; 84484; 84550; 85025; 85027; 85045; 85610; 85652; 85730; 86140; 86850; 86900; 86901; 86920; 87040; 87070; 87075; 87077; 87177; 87186; 87205; 87493; 88305; 93005; 93010; 93306; 93880; 96360; 99285; A9560; C1769; G8978-GP; G8979-GP; J0171; J0330; J0610; J0690; J0696; J1200; J1610; J1642; J1644; J1885; J1940; J2250; J2310; J2405; J2550; J2704; J3010; J3370; J3475; J3480; J3490; J7030; J7040; J7060; P9016; Q9969; S0164